=== PATIENT | female | born 1960 | race Caucasian/White ===

== ENCOUNTER 2021-04-05 14:08 | Outpatient (CLI) | payer OTHER, SELFPAY ==
[2021-04-05 14:55] LABS: Basophils Absolute Auto 0.1 K/mm3 (0.0-0.1); Basophils Percent Auto 0.8 % (0.2-1.2); Eosinophils Absolute Auto 0.3 K/mm3 (0-0.3); Eosinophils Percent Auto 3.4 % (0-4.4); Hematocrit 45.6 % (37.0-47.0); Hemoglobin 14.5 g/dL (12.0-15.0); Immature Granulocyte Absolute 0.04 K/mm3 (0.00-0.031); Immature Granulocyte Percent A 0.4 % (0-0.5); Lymphocytes Absolute Auto 2.46 K/mm3 (0.9-3.2); Mean Corpuscular HGB Conc 31.8 g/dl (32-36); Mean Corpuscular Hemoglobin 29.6 pg (26-34); Mean Corpuscular Volume 93.1 fl (80-100); Mean Platelet Volume 10.4 fl (7.4-10.4); Monocytes Absolute Auto 0.7 K/mm3 (0.1-0.6); Monocytes Percent Auto 7.1 % (2.6-8.5); Neutrophils Absolute Auto 5.6 K/mm3 (1.3-6.7); Neutrophils Percent Auto 61.3 % (45.5-73.1); Platelet Count Result 295 k/mm3 (150-375); Red Cell Distribution Width 13.9 % (11.5-14.5); White Blood Count 9.1 K/mm3 (4.5-10.0)
[2021-04-05 15:13] LABS: NT Pro B Type Natriuretic Pept 134 pg/mL (5-100)
[2021-04-07 11:26] LABS: Alpha-1-Antitrypsin, QN 173 mg/dL (83-199)
== END 2021-04-05 14:09 | disposition home or self-care (01) ==
PROVIDERS: PCP Physician Assistant; Visit Provider Nurse Practitioner
DX: J45.909 Unspecified asthma, uncomplicated (principal); R05 Cough
CPT/HCPCS: 36415; 82103; 82104; 82785; 83880; 85025; 86003

== ENCOUNTER 2021-08-12 13:21 | Outpatient (CLI) | payer OTHER, SELFPAY ==
--- NOTE | 2021-08-13 09:35 | P.PCNPFT_ITS ---
PFT Procedure Performed PFT Procedure Performed Spirometry with Pre/Post Bronchodilator Plethysmography (Lung Vol) Diffusing Cap (DLCO) Flow Vol Loop PFT Interpretation Lung volumes were measured with the body plethysmography method. The elevated RV and FRC are indicative of air trapping. Spirometry showed diminished exp iratory flow rates and a diminished FEV1 to FVC ratio 48%, consistent with obstructive airway disease. Following administration of a bronchodilator there was significant increase in expiratory flow rates. Lung diffusion capacity is borderline normal at 76% predicted. The flow volume loop is consistent with obstructive airway disease. Impression: Moderately severe obstructive airway disease with evidence of air trapping and significant response to bronchodilators on this testing. Borderline normal lung diffusion capacity.
--- NOTE | 2021-08-13 09:39 | WPDSIXMINUTE ---
Six Minute Walk Procedure Procedure Performed Pulmonary Stress Test (6 min walk) Six Minute Walk This 6 minute walk test was carried out with the patient breathing ambient air. The pre walk oxygen saturation was 94% and the perceived pre walk dyspnea 2 on the Evin scale. Patient used wheeled walker but was unable to finish walk and stopped at 4 minutes. She was only able to walk 45 m. During the walk the perceived dyspnea was 6 on the Evin scale. During this short walk, the O2 saturation remained over 95%. Impression: Incomplete 6 minute walk test limited by inability to walk and also by dyspnea. No significant oxyhemoglobin desaturation during this limited test.
== END 2021-08-12 13:22 | disposition home or self-care (01) ==
LOC: ANHPFT 13:23
PROVIDERS: PCP Physician Assistant; Visit Provider Nurse Practitioner
DX: J44.9 Chronic obstructive pulmonary disease, unspecified (principal); R06.00 Dyspnea, unspecified
CPT/HCPCS: 94060; 94618; 94726; 94729

== ENCOUNTER 2022-10-28 09:33 | Outpatient (CLI) | payer OTHER, SELFPAY ==
--- NOTE | ~2022-10-28 | MMUS_ITS ---
EXAMINATION: MM diagnostic antonio BI w vasquez, US breast LT limited HISTORY: Mass in the lower outer quadrant of the right breast TECHNIQUE: Craniocaudal, mediolateral, and mediolateral oblique 3-D tomosynthesis images of the yanci ts were performed and synthetic 2-D images were generated. CAD analysis was submitted and interpreted . High resolution limited left breast ultrasound was performed. COMPARISON: No prior mammogram is currently available for comparison at this institution BREAST PARENCHYMAL COMPOSITION: There are scattered areas of fibroglandular density. FINDINGS: MAMMOGRAPHIC FINDINGS: No mammographic correlate is identified for the mass questioned in the right breast. There is a 10 mm x 4 mm oval, circumscribed, equal density mass in the middle third of the upper outer quadrant of th e left breast at the 2:00 location 10 cm from the nipple. No suspicious calcification or architectura l distortion are identified. ULTRASOUND: There is a 5 mm x 4 mm oval, circumscribed, parallel, hypoechoic mass with posterior acoustic enhance ment and no internal vascularity at the 2:00 location 15 cm from the nipple in the left breast. IMPRESSION: 1. Probably benign left breast mass. 2. Recommend 6 month follow-up left diagnostic mammogram and ultrasound. BI-RADS category 3, probably benign findings. Reviewed, dictated and finalized at location A. NSIONAL INSPECTOR IMPRESSION: 1. Probably benign left breast mass. 2. Recommend 6 month follow-up left diagnostic mammogram and ultrasound. BI-RADS category 3, probably benign findings.
== END 2022-10-28 09:34 | disposition home or self-care (01) ==
LOC: CHSIMG 09:35
PROVIDERS: PCP Physician Assistant; Visit Provider Physician Assistant
DX: N63.13 Unspecified lump in the right breast, lower outer quadrant (principal)
CPT/HCPCS: 76642; 77062; 77066; G0279

== ENCOUNTER 2023-04-17 08:46 | Outpatient (CLI) | payer OTHER, SELFPAY ==
--- NOTE | ~2023-04-17 | MMUS_ITS ---
EXAMINATION: MM diagnostic antonio LT w vasquez, US breast LT limited HISTORY: Six-month follow-up of probable benign left breast 2:00 lesion 13 cm from nipple, reported o n 10/28/2022 diagnostic mammogram and limited left breast ultrasound examination TECHNIQUE: ML, MLO and CC 3-D tomosynthesis images of the left breast were performed and synthetic 2- D images were generated. CAD analysis was submitted and interpreted. High resolution upper outer quad rant left breast ultrasound was performed. COMPARISON: 10/28/2022 diagnostic left mammogram and limited left breast ultrasound FINDINGS: MAMMOGRAPHIC FINDINGS: 2 contiguous circumscribed oval approximately 2.5 x 3.6 mm and 2.6 x 5.2 mm masses are noted in the u pper outer left breast. A small oval benign-appearing calcification is noted in the 2.5 x 3.6 mm mass . The circumscribed margins and a benign-appearing calcification suggest that these are benign proces ses. There is a nearby more medially situated approximately 3.6 x 9.5 mm circumscribed opacity. No suspicious mass or architectural distortion, malignant calcification, skin thickening or retractio n is noted otherwise. ULTRASOUND: 2:00 12 cm from nipple: There are 2 contiguous hypoechoic solid lesions, measuring 4.2 x 4.9 mm and 3 .5 x 4.6 mm . There is some shadowing associated with each of these lesions, which is suspicious. Ultrasound-guided biopsy therefore is recommended. IMPRESSION: 1. 2 contiguous approximately 4.9 and 4.6 mm sonographically shadowing masses at 2:00 12 cm 2. Ultrasound-guided biopsy of the 2 lesions at 2:00 12 cm from the nipple is recommended BI-RADS category 4, suspicious findings. Dr. Moore telephoned the report and ultrasound-guided biopsy recommendation for the 2 lesions at 2:00 12 cm from the nipple on 04/17/2023 at 1015 hours to Stephy Reviewed, dictated and finalized at location A. IMPRESSION: 1. 2 contiguous approximately 4.9 and 4.6 mm sonographically shadowing masses a t 2:00 12 cm 2. Ultrasound-guided biopsy of the 2 lesions at 2:00 12 cm from the nipple is r ecommended BI-RADS category [address], [address] Moore telephoned the report and ultrasound-guided biopsy recommendation for the 2 lesions at 2:00 12 cm from the nipple on 04/17/2023 at 1015 hours to Stephy
== END 2023-04-17 08:47 | disposition home or self-care (01) ==
LOC: CHSIMG 08:50
PROVIDERS: PCP Physician Assistant; Visit Provider Physician Assistant
DX: N63.21 Unspecified lump in the left breast, upper outer quadrant (principal); R92.8 Other abnormal and inconclusive findings on diagnostic imaging of breast
CPT/HCPCS: 76642; 77061; 77065; G0279

== ENCOUNTER 2023-05-02 07:35 | Outpatient (CLI) | payer OTHER, SELFPAY ==
--- NOTE | ~2023-05-02 | MMUS_ITS ---
EXAMINATION: US breast biopsy LT w image, MM post biopsy diagnostic LT DATE: 05/02/2023 09:10 (accession [id number]), 05/02/2023 09:03 (accession [id number]) INDICATION: Indeterminate mass at the 2:00 location in the left breast. Ultrasound-guided core biopsy is requested to evaluate for malignancy. TECHNIQUE AND FINDINGS: The risks and potential benefits of the procedure were discussed with the patient including bleeding and infection. A time out was performed. The skin of the left breast was prepared and draped in usual sterile fashion. 1% lidocaine was used for superficial anesthesia. 1% lidocaine with epinephrine was used for deep anesthesia. A vacuum-assisted biopsy needle was advanced through to the outer edge of the region of interest from a lateral approach utilizing sonographic guidance. A total of three tissue core samples were obtaine d through the lesion. A tissue marker clip was then placed at the biopsy site. Hemostasis was achieve d. A sterile bandage was applied. The patient tolerated procedure well and there was no evidence of immediate complication. The patient was given verbal instructions to return to the Emergency Department in the event of severe breast pa in or rapid breast enlargement. A two view left breast mammogram was obtained to document tissue francisco javier er clip placement. IMPRESSION: 1. Successful ultrasound-guided vacuum-assisted biopsy of left breast mass with tissue marker placeme nt. Reviewed, dictated and finalized at location D. IMPRESSION: 1. Successful ultrasound-guided vacuum-assisted biopsy of left breast mass with tissue marker placement.
== END 2023-05-02 07:36 | disposition home or self-care (01) ==
PROVIDERS: PCP Physician Assistant; Visit Provider Physician Assistant
DX: N63.21 Unspecified lump in the left breast, upper outer quadrant (principal)
CPT/HCPCS: 19083; 77065; 88305; A4648

== ENCOUNTER 2023-06-13 10:11 | Outpatient (CLI) | payer OTHER, SELFPAY ==
--- NOTE | ~2023-06-13 | US_ITS ---
US breast LT limited DATE: 06/13/2023 10:39 INDICATION: Left breast lump at 11:00 10 cm from nipple TECHNIQUE: Targeted ultrasound and color flow imaging of the left breast at 11:00 10 cm from nipple COMPARISON: 04/17/2020 diagnostic left mammogram and limited left breast ultrasound FINDINGS: Corresponding to the area of palpable lump is a parallel circumscribed sonolucency measurin g 2 x 3.4 x 3.7 mm, without internal vascularity or posterior shadowing, consistent with simple cyst. IMPRESSION: BI-RADS Category 2: Benign finding Recommendation: Routine mammographic screening Reviewed, dictated and finalized at Location A. Reviewed, dictated and finalized at location A.
== END 2023-06-13 10:12 | disposition home or self-care (01) ==
PROVIDERS: PCP Physician Assistant; Visit Provider Physician Assistant
DX: N63.22 Unspecified lump in the left breast, upper inner quadrant (principal)
CPT/HCPCS: 76642

== ENCOUNTER 2024-07-26 21:55 | Emergency (ER) | payer SELFPAY ==
[2024-07-26 21:55] VITALS: BP 123/86; PULSE 75; RESP 20; TEMP 36.8; O2SAT 94
--- NOTE | 2024-07-26 22:01 | ED.ANIMALBIT ---
HPI - Animal Bite General Chief Complaint: Wound/Laceration Stated Complaint: Skin Tear to Right Leg Time Seen by Provider: 07/26/24 22:01 Source: patient Mode of arrival: ambulatory Limitations: no limitations History of Present Illness HPI narrative: PATIENT 63 YEARS OLD WHITE FEMALE PRESENTS WITH LACERATION AT THE FRONT OF LEFT LOWER LEG BY A DOG. PATIENT WAS SITTING, CARRYING THE DOG ON HER LAB WHO GOT OF HER LAB SUDDENLY AND SCRATCH THE FRONT OF LEFT LOWER LEG. PATIENT DENIES OTHER INJURIES. UNKNOWN LAST TETANUS SHOT. Review of Systems Review of Systems: All systems reviewed & are unremarkable except as noted in HPI and below Exam Narrative: GENERAL APPEARANCE: WELL-DEVELOPED, WELL-NOURISHED SKIN: NORMAL COLOR LEFT LOWER LEG EXAMINATION SHOWED 5 CM SKIN AVULSION. HEAD: NORMOCEPHALIC, NONTRAUMATIC CHEST AND RESPIRATORY: AIRWAY PATENT, NO RESPIRATORY DISTRESS, NO ACCESSORY MUSCLE USE HEART: REGULAR RATE/RHYTHM VASCULAR: NORMAL PERIPHERAL PULSES, NORMAL CAPILLARY REFILL. MUSCULOSKELETAL: NORMAL RANGE OF MOTION, NONTENDER BACK NEUROLOGIC: ALERT AND ORIENTED ?3, PAYROLL REPRESENTATIVE IS NORMAL TESTED, NO GROSS MOTOR DEFICIT MDM - Animal Bite MDM Narrative Medical decision making narrative: LEFT LOWER LEG LACERATION SECONDARY TO DOG SCRATCH MANAGED BY THE NURSEMITCHELL Critical Care Time Critical Care Time Critical Care Time: No Discharge Plan Discharge Clinical Impression: Laceration of left leg Patient Disposition: Home, Self-Care Condition: Stable Instructions: Antibiotic Form, Laceration (ED) Additional Instructions: RETURN IF SYMPTOMS ARE WORSENING , CALL YOUR FAMILY PHYSICIAN FOR APPOINTMENT, TAKE TYLENOL NEEDED FOR ACHES AND PAIN, CONTINUE HOME MEDICATIONS., KEEP LEG ELEVATED Prescriptions: New cephalexin 500 mg capsule 500 mg PO Q6H 7 Days Qty: 28 0RF Follow-up/Referrals: Veronica,JOSHUA Grace [Primary Care Provider] -
[2024-07-26] MEDS: TETANUS,DIPHTHERIA,AC PERTUSSIS ADULT 0.5 ML (ADACEL) IM (22:41)
== END 2024-07-26 22:48 | disposition home or self-care (01) ==
LOC: CHSED 22:32
PROVIDERS: Emergency Provider Emergency Medicine; PCP Physician Assistant
DX: S81.811A Laceration without foreign body, right lower leg, initial encounter (principal); Z23 Encounter for immunization; W45.8XXA Other foreign body or object entering through skin, initial encounter
CPT/HCPCS: 90715; 96372; 99283

== ENCOUNTER 2024-10-19 11:51 | Observation (INO) | payer SELFPAY ==
[2024-10-19] VITALS (25 sets, daily range): BP systolic 144–186; BP diastolic 67–106; PULSE 80–102; RESP 19–32; TEMP 36–36.6; O2SAT 88–100; BMI 37.0
--- NOTE | ~2024-10-19 | XR_ITS ---
XR chest 1V portable DATE: 10/19/2024 12:29 INDICATION: Shortness of breath for 3 weeks TECHNIQUE: Portable upright AP chest on 10/19/2024 at 1225 hours COMPARISON: None FINDINGS: Normal heart size. There is minimal aortic unfolding. No hilar or mediastinal enlargement. No pulmonary infiltrate or consolidation, pleural effusion or pulmonary vascular congestion or pneumo thorax. Osteopenia. Prominent osteoarthritic change of the right glenohumeral joint. Degenerative spurring an d minimal dextroscoliosis of the thoracic spine. IMPRESSION: No active cardiopulmonary disease Reviewed, dictated and finalized at location A. RUMENT TESTER
--- NOTE | 2024-10-19 12:02 | ECG_ITS ---
Test Date: 2024-10-19 12:16:23 Measurements Intervals Gobles Rate: 86 P: 58 PA: 105 QRS: 10 QRSD: 139 T: 120 QT: 400 QTc: 481 Interpretive Statements SINUS RHYTHM WITH SHORT PA INTERVAL LEFT BUNDLE BRANCH BLOCK [120+ ms QRS DURATION, 80+ ms Q/S IN V1/V2, 85+ ms R IN I/aVL/V5/V6] ABNORMAL ECG No previous ECG available for comparison Electronically Signed On 10-19-2024 17:44:15 BAKER TEST by Rob Ornelas M.D.
[2024-10-19] MEDS: IPRATROPIUM 0.5 MG/ALBUTEROL SULFATE 2.5 MG AMPUL.NEB 3 ML INHALATION ×3 (12:13→23:51)
[2024-10-19] MEDS: methylPREDNISolone SOD SUCC 125 MG VIAL IV PUSH (12:13)
[2024-10-19 12:27] LABS: Basophils Absolute Auto 0.08 K/mm3 (0.00-0.10); Basophils Percent Auto 0.8 % (0.0-1.0); Eosinophils Absolute Auto 0.86 K/mm3 (0.02-0.50); Eosinophils Percent Auto 8.2 % (1.0-6.0); Hematocrit 43.7 % (35.0-49.0); Hemoglobin 13.5 g/dL (12.0-15.0); Immature Granulocyte Absolute 0.04 K/mm3 (0.00-0.00); Immature Granulocyte Percent A 0.4 % (0.0-0.0); Lymphocytes Absolute Auto 2.03 K/mm3 (1.10-4.50); Lymphocytes Percent Auto 19.4 % (18.0-42.0); Mean Corpuscular HGB Conc 30.9 g/dL (32-36); Mean Corpuscular Hemoglobin 28.5 pg (27.0-31.0); Mean Corpuscular Volume 92.4 fL (78.0-102.0); Mean Platelet Volume 9.9 fl (9.2-11.8); Monocytes Absolute Auto 0.55 K/mm3 (0.10-0.90); Monocytes Percent Auto 5.3 % (2.0-11.0); Neutrophils Percent Auto 65.9 % (50.0-70.0); Platelet Count Result 279 K/mm3 (150-420); Red Blood Count 4.73 M/mm3 (4.20-5.40); White Blood Count 10.5 K/mm3 (4.8-10.8)
[2024-10-19 12:39] LABS: INR 0.9; Partial Thromboplastin Time 26.9 Sec (23.9-30.70); Prothrombin Time 10.5 Seconds (9.50-12.1)
[2024-10-19] MEDS: MAGNESIUM SULF 2 GM/WATER 50ML 2 GM/50 ML BAG IVPB (12:44)
[2024-10-19 12:45] LABS: Lactic Acid Reflex 1.4 mmol/L (0.4-2.0)
[2024-10-19] MEDS: LEVALBUTEROL NEB 1.25 MG/3 ML 2.5 MG INHALATION (12:45)
[2024-10-19 12:48] LABS: Troponin I 14.3 ng/L (0.00-60.4)
[2024-10-19 12:51] LABS: Alanine Aminotransferase 25 U/L (14-59); Albumin Level 3.7 g/dL (3.4-5.0); Alkaline Phosphatase 69 U/L (46-116); Anion Gap 10 mmol/L (4-12); Aspartate Amino Transferase 14 U/L (15-37); Bilirubin,Total 0.4 mg/dL (0.00-1.00); Blood Urea Nitrogen 12 mg/dL (7-18); Calcium 9.6 mg/dL (8.5-10.1); Carbon Dioxide 28 mmol/L (21-32); Chloride 109 mmol/L (98-108); Estimated CRCL calculation 89 ml/min; Estimated Glomerular Filt Rate > 60; Glucose 112 mg/dL (70-99); Magnesium 1.9 mg/dL (1.8-2.4); NT Pro B Type Natriuretic Pept 284 pg/mL (0-125); Osmolality Calculated 304 mOsm/kg (285-295); Potassium 3.6 mmol/L (3.5-5.1); Sodium 147 mmol/L (136-145); Total Protein 6.8 g/dL (6.4-8.2)
[2024-10-19 13:03] LABS: SARS-CoV-2 RNA PCR Negative (Negative)
[2024-10-19 13:04] LABS: Influenza A QL RT-PCR Negative (Negative); Influenza B QL RT-PCR Negative (Negative); RSV RNA, RT-PCR Negative (Negative)
--- NOTE | 2024-10-19 13:14 | ED_ITS ---
HPI - SOB/Dyspnea General Chief Complaint: Shortness of Breath/Dyspnea Stated Complaint: cough Source: patient and family Mode of arrival: ambulatory Limitations: no limitations History of Present Illness MD elicited complaint: shortness of breath and cough Pertinent past history: COPD Onset (ago): week(s) Context: recent illness Severity: moderate Known history of: COPD Related Data Home Medications ?Medication ?Instructions ?Recorded ?Confirmed ?Last Taken ?Type albuterol sulfate 2.5 mg/3 mL mg 10/19/24 Unknown History (0.083 %) solution for nebulization albuterol sulfate 90 mcg/actuation inhalation 10/19/24 Unknown History aerosol inhaler benzonatate 200 mg capsule mg PO 10/19/24 Unknown History escitalopram oxalate 10 mg tablet mg 10/19/24 Unknown History losartan 50 mg tablet mg 10/19/24 Unknown History metformin 500 mg tablet,extended mg PO 10/19/24 Unknown History release 24 hr Allergies Allergy/AdvReac Type Severity Reaction Status Date / Time No Known Allergies Allergy Verified 10/19/24 12:10 Review of Systems 2 Review of Systems: All systems reviewed & are unremarkable except as noted in HPI and below PMFSH Past Medical History Medical History COPD (chronic obstructive pulmonary disease) Exam 2 Const: General: no acute distress Nutritional Appearance: obese O rientation/consciousness: patient oriented x3 HENMT: Head: normal to inspection Eyes: Conjunctivae: conjunctivae normal Chest: Chest palpation & inspection: normal inspection of the chest Resp: Effort & Inspection: normal respiratory effort Auscultation: wheezes Cardio: Rate: regular rate Rhythm: regular rhythm GI: GI Palp: Yes Soft to palpation Auscultation: normal bowel sounds Urinary Catheter: Urinary Catheter: patent and draining Back/Spine/Pelvis: Back: no CVA tenderness Skin: General skin exam: normal color Rashes: no rashes Wounds: no wounds Neuro: General: patient oriented x3, moves all extremities and no meningeal signs Extrem: General: normal to inspection Course Course Emergency Course: EKG performed and reviewed shows sinus rhythm with a rate of 86 patient denies chest pain, has some audible wheezing received DuoNeb Xopenex and albuterol with magnesium and 125 IV Solu-Medrol. Patient is currently on room air and O2 sats are 98%. White count is 10.6 with negative troponin BNP of 286. Vital Signs Vital signs: Vital Signs Temperature 36.6 C 10/19/24 11:51 Pulse Rate 98 10/19/24 11:51 Respiratory Rate 20 10/19/24 11:51 Blood Pressure 169/106 H 10/19/24 11:51 Pulse Oximetry 93 10/19/24 11:51 Oxygen Delivery Room Air 10/19/24 11:51 Temperature 36.6 C 10/19/24 11:51 Pulse Rate 94 10/19/24 13:07 Respiratory Rate 22 H 10/19/24 13:07 Blood Pressure 186/95 H 10/19/24 12:02 Pulse Oximetry 98 10/19/24 13:07 Oxygen Delivery Room Air 10/19/24 12:02 MDM - SOB/Dyspnea Lab Data 10/19/24 12:23 10/19/24 12:23 Labs: Lab Results 10/19/24 Range/Units 12:23 WBC 10.5 (4.8-10.8) K/mm3 RBC 4.73 (4.20-5.40) M/mm3 Hgb 13.5 (12.0-15.0) g/dL Hct 43.7 (35.0-49.0) % MCV 92.4 (78.0-102.0) fL MCH 28.5 (27.0-31.0) pg MCHC 30.9 L (32-36) g/dL RDW 14.0 (11.6-14.4) % Plt Count 279 (150-420) K/mm3 MPV 9.9 (9.2-11.8) fl Immature Gran % (Auto) 0.4 H (0.0-0.0) % Neut % (Auto) 65.9 (50.0-70.0) % Lymph % (Auto) 19.4 (18.0-42.0) % [place] % (Auto) 5.3 (2.0-11.0) % Eos % (Auto) 8.2 H (1.0-6.0) % Baso % (Auto) 0.8 (0.0-1.0) % Lymph # (Auto) 2.03 (1.10-4.50) K/mm3 [place] # (Auto) 0.55 (0.10-0.90) K/mm3 Eos # (Auto) 0.86 H (0.02-0.50) K/mm3 Baso # (Auto) 0.08 (0.00-0.10) K/mm3 Abs Immat Gran (auto) 0.04 H (0.00-0.00) K/mm3 Absolute Neuts (auto) 6.90 (1.70-7.20) K/mm3 Absolute Nucleated RBC 0.00 (0.00-0.00) K/mm3 Nucleated RBC % 0.0 (0-0.0) % PT 10.5 (9.50-12.1) Seconds INR 0.9 APTT 26.9 (23.9-30.70) Sec Sodium 147 H (136-145) mmol/L Potassium 3.6 (3.5-5.1) mmol/L Chloride 109 H (98-108) mmol/L Carbon Dioxide 28 (21-32) mmol/L Anion Gap 10 (4-12) mmol/L BUN 12 (7-18) mg/dL Creatinine 0.68 (0.55-1.02) mg/dL Estim Creat Clear Calc 89 ml/min Estimated GFR > 60 (59 - ) Glucose 112 H (70-99) mg/dL Calculated Osmolality 304 H (285-295) mOsm/kg Lactic Acid 1.4 (0.4-2.0) mmol/L Calcium 9.6 (8.5-10.1) mg/dL Magnesium 1.9 (1.8-2.4) mg/dL Total Bilirubin 0.4 (0.00-1.00) mg/dL AST 14 L (15-37) U/L ALT 25 (14-59) U/L Alkaline Phosphatase 69 (46-116) U/L Troponin I 14.3 (0.00-60.4) ng/L NT-Pro-B Natriuret Pep 284 H (0-125) pg/mL Total Protein 6.8 (6.4-8.2) g/dL Albumin 3.7 (3.4-5.0) g/dL Influenza A (RT-PCR) Negative (Negative) Influenza B (RT-PCR) Negative (Negative) RSV (RT-PCR) Negative (Negative) SARS-CoV-2 RNA (RT-PCR) Negative (Negative) Discharge Plan Discharge Patient Language: Tajik Prescriptions: No Action losartan 50 mg tablet albuterol sulfate 2.5 mg /3 mL (0.083 %) solution for nebulization benzonatate 200 mg capsule PO albuterol sulfate 90 mcg/actuation HFA aerosol inhaler INHALATION metformin 500 mg tablet extended release 24 hr PO escitalopram oxalate 10 mg tablet Follow-up/Referrals: UNKNOWN,DOCTOR [Primary Care Provider] -
[2024-10-19] MEDS: ALBUTEROL SULFATE NEB 1.25 MG/3 ML INH INHALATION (13:21)
--- NOTE | 2024-10-19 14:05 | ADMGEN ---
This patient, Noelle Fields, was admitted to 2nd Floor Room 203-2. Patient/family oriented to hospital policies and general routines including ID bracelet, bed and alarms, visiting hours, pain management, procedures, bathroom and other care routines, personal items, smoking policy, room service/diet, and visiting hours. Information on how to activate the Rapid Response Team has been discussed. Patient/Family are encouraged to report perceived risks to care and to ask questions if they do not understand what they are told or what they should do.
--- NOTE | 2024-10-19 15:05 | PC.NURSE ---
Patient struggling to calm breathing down even with pursed lipped breathing. 02@2l per nc applied, 02 up to 91-92% from 86-88%. Patient reports she feels better with 02 on, patient appears much calmer sitting up at side of bed.
[2024-10-19] MEDS: methylPREDNISolone SOD SUCC 40 MG VIAL IV PUSH (17:44)
[2024-10-19] MEDS: AZITHROMYCIN 250 MG TABLET 500 MG PO (17:44)
[2024-10-19] MEDS: LOSARTAN POTASSIUM 50 MG TABLET PO (17:44)
[2024-10-19 17:55] LABS: Glucose Point of Care 194 mg/dl (65-105)
[2024-10-19] MEDS: BENZONATATE 100 MG CAPSULE 200 MG PO (18:56)
[2024-10-19] MEDS: ACETAMINOPHEN 325 MG TABLET 650 MG PO ×2 (18:58→23:57)
[2024-10-19 21:49] LABS: Glucose Point of Care 114 mg/dl (65-105)
[2024-10-20] VITALS: BP 164/88; PULSE 88; RESP 22; TEMP 36.3; O2SAT 96
[2024-10-20 05:30] VITALS: O2SAT 94
[2024-10-20 05:58] VITALS: PULSE 84; RESP 18; O2SAT 95
[2024-10-20] MEDS: IPRATROPIUM 0.5 MG/ALBUTEROL SULFATE 2.5 MG AMPUL.NEB 3 ML INHALATION ×3 (05:59→17:59)
[2024-10-20 06:10] VITALS: PULSE 84; RESP 20; O2SAT 97
[2024-10-20 06:33] LABS: Basophils Absolute Auto 0.04 K/mm3 (0.00-0.10); Basophils Percent Auto 0.3 % (0.0-1.0); Eosinophils Absolute Auto 0.01 K/mm3 (0.02-0.50); Eosinophils Percent Auto 0.1 % (1.0-6.0); Hematocrit 44.9 % (35.0-49.0); Hemoglobin 14.1 g/dL (12.0-15.0); Immature Granulocyte Absolute 0.08 K/mm3 (0.00-0.00); Immature Granulocyte Percent A 0.7 % (0.0-0.0); Lymphocytes Absolute Auto 1.22 K/mm3 (1.10-4.50); Lymphocytes Percent Auto 10.7 % (18.0-42.0); Mean Corpuscular HGB Conc 31.4 g/dL (32-36); Mean Corpuscular Hemoglobin 28.5 pg (27.0-31.0); Mean Corpuscular Volume 90.9 fL (78.0-102.0); Mean Platelet Volume 10.4 fl (9.2-11.8); Monocytes Absolute Auto 0.36 K/mm3 (0.10-0.90); Monocytes Percent Auto 3.1 % (2.0-11.0); Neutrophils Absolute Auto 9.74 K/mm3 (1.70-7.20); Neutrophils Percent Auto 85.1 % (50.0-70.0); Platelet Count Result 304 K/mm3 (150-420); Red Blood Count 4.94 M/mm3 (4.20-5.40); Red Cell Distribution Width 13.7 % (11.6-14.4); White Blood Count 11.5 K/mm3 (4.8-10.8)
[2024-10-20 06:41] LABS: Alanine Aminotransferase 22 U/L (14-59); Albumin Level 3.7 g/dL (3.4-5.0); Alkaline Phosphatase 80 U/L (46-116); Anion Gap 10 mmol/L (4-12); Aspartate Amino Transferase 10 U/L (15-37); Bilirubin,Total 0.5 mg/dL (0.00-1.00); Blood Urea Nitrogen 11 mg/dL (7-18); Calcium 9.2 mg/dL (8.5-10.1); Carbon Dioxide 29 mmol/L (21-32); Chloride 106 mmol/L (98-108); Estimated CRCL calculation 99 ml/min; Estimated Glomerular Filt Rate > 60; Glucose 130 mg/dL (70-99); Osmolality Calculated 301 mOsm/kg (285-295); Potassium 4.3 mmol/L (3.5-5.1); Sodium 145 mmol/L (136-145); Total Protein 7.1 g/dL (6.4-8.2)
[2024-10-20 08:00] VITALS: BP 144/90; PULSE 86; RESP 14; TEMP 36.6; O2SAT 94; O2SAT 95
[2024-10-20 08:01] LABS: Glucose Point of Care 119 mg/dl (65-105)
[2024-10-20] MEDS: ACETAMINOPHEN 325 MG TABLET 650 MG PO ×2 (09:39→20:54)
[2024-10-20] MEDS: methylPREDNISolone SOD SUCC 40 MG VIAL IV PUSH ×2 (09:39→13:23)
[2024-10-20] MEDS: BENZONATATE 100 MG CAPSULE 200 MG PO ×3 (09:40→17:58)
[2024-10-20] MEDS: ENOXAPARIN 40 MG/0.4 ML SYRINGE SUB-Q (09:40)
[2024-10-20] MEDS: ONDANSETRON INJ 4 MG/2 ML VIAL IV PUSH (11:20)
[2024-10-20 12:03] LABS: Glucose Point of Care 109 mg/dl (65-105)
[2024-10-20] MEDS: AZITHROMYCIN 250 MG TABLET 500 MG PO (12:14)
[2024-10-20] MEDS: LOSARTAN POTASSIUM 50 MG TABLET PO (12:14)
[2024-10-20 16:00] VITALS: BP 140/74; PULSE 85; RESP 18; TEMP 36.6; O2SAT 93
--- NOTE | 2024-10-20 16:38 | PM.IMPN ---
Subjective Date/time seen: 10/20/24 16:38 Interval history: This is a 63-year-old female with a significant past medical history of COPD, Hypertension, borderline DM, hx of DVT, current everyday smoker who presented to the hospital with shortness of breath/dyspnea. Patient states that she has been feeling more short of breath the past few days and presented for further evaluation. Patient is currently retired however uninsured at this time. She does have her inhalers and nebulizer at home with refills. She states that her O2 saturation is normally between 80-92% at home. She is more short of breath with activity than usual. She denies any fever, chills, nausea, vomiting, diarrhea, abdominal pain, chest pain, SOB. She does report productive cough. She states she was exposed to her daughter who has been recently ill. Patient states that workup in the hospital included chest x-ray which was negative for any acute cardiopulmonary disease. Initial labs showed a normal white blood cell count of 10.5, eosinophils 0.86, sodium 147, potassium 3.6, blood sugar 112-194, proBNP 284, troponin 14.3. Respiratory panel was negative for influenza a and B, RSV, COVID. Blood cultures were obtained and are pending. Review of Systems Review of Systems: All systems reviewed & are unremarkable except as noted in HPI and below Constitutional: Constitutional: Reports as per HPI and Reports no additional constitutional complaints Eyes: Eyes: Reports as per HPI and Reports no additional eye complaints ENT: Reports system reviewed and no additional complaints, except as documented and Reports as per HPI Cardiovascular: Cardiovascular: Reports as per HPI and Reports no additional cardiovascular complaints Respiratory: Respiratory: Reports as per HPI and Reports no additional respiratory complaints Gastrointestinal: Gastrointestinal: Reports as per HPI and Reports no additional gastrointestinal complaints Genitourinary: Genitourinary: Reports no additional female genitourinary complaints and Reports as per HPI Musculoskeletal: Musculoskeletal: Reports no additional musculoskeletal complaints and Reports as per HPI Integumentary/Breasts: Skin/Breast: Reports system reviewed and no additional complaints, except as docu and Reports as per HPI Neurologic: Reports system reviewed and no additional complaints, except as documented and Reports as per HPI Psychiatric: Psychiatric: Reports no additional psychiatric complaints and Reports as per HPI Exam Narrative: General: In no acute distress, well nourished Head: atraumatic, no encephalopathy Eyes: PERRLA, sclera clear ENT: moist mucous membranes, nasal passages clear Neck: supple, no JVD, no adenopathy, trachea midline Cardiac: Normal S1 and S2. RRR, No murmur, gallops or friction rubs, peripheral pulses intact. Respiratory: Lungs clear to auscultation with mild expiratory wheezing, no adventitious lung sounds, currently on 2L NC, reports SOB with exertion Gastrointestinal: soft, non-distended, non-tender, normoactive bowel sounds. : voiding without difficulty. Extremities: moves all extremities well, 1+ edema to BLE Skin: clean, dry, intact. No wounds or lesions. Neuro: Alert and oriented x4, cranial nerves intact, no neuro deficits. Psych: normal mood, normal affect, interactive Objective Data Vital Signs Vital Signs: Vital Signs - 24 hr 10/19/24 23:50 10/20/24 00:00 10/20/24 00:00 Temperature 97.4 F L Pulse Rate 80 88 88 Respiratory Rate 22 H 22 H 22 H Blood Pressure 164/88 H Pulse Oximetry 95 96 96 Oxygen Delivery Nasal Cannula Oxygen Flow Rate 2 2 2 10/20/24 05:58 10/20/24 06:10 10/20/24 08:00 Temperature 97.8 F Pulse Rate 84 84 86 Respiratory Rate 18 20 14 Blood Pressure 144/90 H Pulse Oximetry 95 97 94 Oxygen Delivery Nasal Cannula Oxygen Flow Rate 2 2 2.5 10/20/24 08:00 10/20/24 16:00 Temperature 98 F Pulse Rate 86 85 Respiratory Rate 14 18 Blood Pressure 140/74 Pulse Oximetry 95 93 Oxygen Delivery Nasal Cannula Nasal Cannula Oxygen Flow Rate 2.5 2 Intake/Output Intake/Output: Intake & Output 10/17/24 10/18/24 10/19/24 10/20/24 23:59 23:59 23:59 23:59 Intake Total 440 1065 Balance 440 1065 Meds/Results Medications: Active Medications Generic Name Dose Route Start Last Admin Trade Name Freq PRN Reason Stop Dose Admin Acetaminophen 650 mg 10/19/24 15:13 10/20/24 09:39 Acetaminophen 325 Mg Tablet PO 650 mg Q4H PRN Administration Mild Pain (1-3) or Fever Albuterol/Ipratropium 3 ml 10/19/24 18:30 10/20/24 13:23 Ipratropium 0.5 Mg/Albuterol Sulfate 2.5 Mg Ampul.Neb 3 Ml INHALATION 3 ml Q6HRT HOLDEN Administration Azithromycin 500 mg 10/19/24 15:20 10/20/24 12:14 Azithromycin 250 Mg Tablet PO 500 mg DAILY HOLDEN Administration Benzonatate 200 mg 10/19/24 18:40 10/20/24 13:23 Benzonatate 100 Mg Capsule PO 200 mg TID HOLDEN Administration Dextrose 12.5 gm 10/19/24 15:13 Dextrose 50% 25 Gm/50 Ml Syringe IV PUSH PRN PRN Hypoglycemia Protocol Enoxaparin Sodium 40 mg 10/20/24 09:00 10/20/24 09:40 Enoxaparin 40 Mg/0.4 Ml Syringe SUB-Q 40 mg DAILY HOLDEN Administration Glucagon 1 mg 10/19/24 15:13 Glucagon For Inj 1 Mg Vial IM PRN PRN Hypoglycemia Protocol Glucose 15 gm 10/19/24 15:13 Glucose Oral Gel 15 Gm Of Glucse In 37.5 Gm Tube PO PRN PRN Hypoglycemia Protocol Dextrose 1,000 mls @ 100 mls/hr 10/19/24 15:13 Dextrose 5% 1,000 Ml IVPB PRN PRN Hypoglycemia Protocol Insulin Human Lispro 4 - 8 units 10/19/24 17:00 10/20/24 12:14 Insulin Human Lispro (*Bkc) 1,000 Units/10 Ml Vial SUB-Q Not Given TIDWM HOLDEN Protocol Losartan Potassium 50 mg 10/19/24 15:20 10/20/24 12:14 Losartan Potassium 50 Mg Tablet PO 50 mg DAILY HOLDEN Administration Methylprednisolone Sodium Succinate 40 mg 10/19/24 17:00 10/20/24 13:23 Methylprednisolone Sod Succ 40 Mg Vial IV PUSH 40 mg TID HOLDEN Administration Ondansetron HCl 4 mg 10/19/24 15:13 10/20/24 11:20 Ondansetron Inj 4 Mg/2 Ml Vial IV PUSH 4 mg Q6H PRN Administration Nausea And Vomiting Radiology Results: ITS Impressions Chest X-Ray 10/19/24 12:56 IMPRESSION: No active cardiopulmonary disease Labs Labs: Laboratory Results - last 24 hr 10/19/24 10/19/24 10/20/24 17:53 21:44 05:47 WBC 11.5 H RBC 4.94 Hgb 14.1 Hct 44.9 MCV 90.9 MCH 28.5 MCHC 31.4 L RDW 13.7 Plt Count 304 MPV 10.4 Immature Gran % (Auto) 0.7 H Neut % (Auto) 85.1 H Lymph % (Auto) 10.7 L [place] % (Auto) 3.1 Eos % (Auto) 0.1 L Baso % (Auto) 0.3 Lymph # (Auto) 1.22 [place] # (Auto) 0.36 Eos # (Auto) 0.01 L Baso # (Auto) 0.04 Abs Immat Gran (auto) 0.08 H Absolute Neuts (auto) 9.74 H Absolute Nucleated RBC 0.00 Nucleated RBC % 0.0 Sodium 145 Potassium 4.3 Chloride 106 Carbon Dioxide 29 Anion Gap 10 BUN 11 Creatinine 0.60 Estim Creat Clear Calc 99 Estimated GFR > 60 Glucose 130 H POC Capillary Glucose 194 H 114 H Calculated Osmolality 301 H Calcium 9.2 Total Bilirubin 0.5 AST 10 L ALT 22 Alkaline Phosphatase 80 Total Protein 7.1 Albumin 3.7 10/20/24 10/20/24 07:54 11:58 WBC RBC Hgb Hct MCV MCH MCHC RDW Plt Count MPV Immature Gran % (Auto) Neut % (Auto) Lymph % (Auto) [place] % (Auto) Eos % (Auto) Baso % (Auto) Lymph # (Auto) [place] # (Auto) Eos # (Auto) Baso # (Auto) Abs Immat Gran (auto) Absolute Neuts (auto) Absolute Nucleated RBC Nucleated RBC % Sodium Potassium Chloride Carbon Dioxide Anion Gap BUN Creatinine Estim Creat Clear Calc Estimated GFR Glucose POC Capillary Glucose 119 H 109 H Calculated Osmolality Calcium Total Bilirubin AST ALT Alkaline Phosphatase Total Protein Albumin
[2024-10-20 17:07] LABS: Glucose Point of Care 241 mg/dl (65-105)
--- NOTE | 2024-10-20 17:35 | P.HP_ITS ---
H&P: HPI History of Present Illness Date/Time: 10/20/24 17:35 Chief Complaint: shortness a breath dyspnea Narrative: This is a 63-year-old female with a significant past medical history of COPD, Hypertension, borderline DM, hx of DVT, current everyday smoker who presented to the hospital with shortness of breath/dyspnea. Patient states that she has been feeling more short of breath the past few days and presented for further evaluation. Patient is currently retired however uninsured at this time. She does have her inhalers and nebulizer at home with refills. She states that her O2 saturation is normally between 80-92% at home. She is more short of breath with activity than usual. She denies any fever, chills, nausea, vomiting, diarrhea, abdominal pain, chest pain, SOB. She does report productive cough. She states she was exposed to her daughter who has been recently ill. Patient states that workup in the hospital included chest x-ray which was negative for any acute cardiopulmonary disease. Initial labs showed a normal white blood cell count of 10.5, eosinophils 0.86, sodium 147, potassium 3.6, blood sugar 112-194, proBNP 284, troponin 14.3. Respiratory panel was negative for influenza a and B, RSV, COVID. Blood cultures were obtained and are pending. Review of Systems Review of Systems: All systems reviewed & are unremarkable except as noted in HPI and below Constitutional: Constitutional: Reports as per HPI and Reports no additional constitutional complaints Eyes: Eyes: Reports as per HPI and Reports no additional eye complaints ENT: Reports system reviewed and no additional complaints, except as documented and Reports as per HPI Cardiovascular: Cardiovascular: Reports as per HPI and Reports no additional cardiovascular complaints Respiratory: Respiratory: Reports as per HPI and Reports no additional respiratory complaints Gastrointestinal: Gastrointestinal: Reports as per HPI and Reports no additional gastrointestinal complaints Genitourinary: Genitourinary: Reports no additional female genitourinary complaints and Reports as per HPI Musculoskeletal: Musculoskeletal: Reports no additional musculoskeletal complaints and Reports as per HPI Integumentary/Breasts: Skin/Breast: Reports system reviewed and no additional complaints, except as docu and Reports as per HPI Neurologic: Reports system reviewed and no additional complaints, except as documented and Reports as per HPI Psychiatric: Psychiatric: Reports no additional psychiatric complaints and Reports as per HPI [facility] Past Medical History Medical History (Updated 10/20/24 @ 17:40 by Lilibeth Shi APRN) Tobacco abuse Type 2 diabetes mellitus 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 She lives with her . she currently has no insurance and does not qualify for Medicaid. She is currently 63 years old. Smoking packs per day: 1 Smoking cigarettes per day: 20.0 Years smoked: 46 Smoking pack-years: 46.00 Smoking status: Current every day smoker Tobacco type: cigarettes Second hand tobacco smoke exposure: No Alcohol intake: never Substance use: never Substance use type: does not use Do You Feel Safe in your Home?: Yes Lack of Transportation: No Lack of Food: Never True Current Housing: I Have Housing Concerned About Future Housing: No Difficulty Paying Gas/Electric Bills: YES Difficulty Paying for Meds: YES Currently Unemployed: No Education: High School Diploma/GED Difficulty w/ Childcare or Family Care: No Spiritual care concerns: No Meds Home Medications and Allergies Home Medications ?Medication ?Instructions ?Recorded ?Confirmed ?Type albuterol sulfate 2.5 mg/3 mL 2.5 mg inhalation Q4-6H PRN 10/19/24 10/19/24 History (0.083 %) solution for nebulization shortness of breath or wheezing albuterol sulfate 90 mcg/actuation 2 inh inhalation Q6H PRN 10/19/24 10/19/24 History aerosol inhaler bronchospasm benzonatate 200 mg capsule 200 mg PO TID PRN cough 10/19/24 10/19/24 History escitalopram oxalate 10 mg tablet 10 mg PO DAILY 10/19/24 10/19/24 History losartan 50 mg tablet 50 mg PO DAILY 10/19/24 10/19/24 History metformin 500 mg tablet,extended 500 mg PO BID 10/19/24 10/19/24 History release 24 hr tiotropium bromide 2.5 2 inh inhalation DAILY 10/19/24 10/19/24 History mcg/actuation mist for inhalation (Spiriva Respimat) Allergies Allergy/AdvReac Type Severity Reaction Status Date / Time No Known Allergies Allergy Verified 10/19/24 12:10 Vital Signs Vital Signs - 24 hr 10/19/24 23:50 10/20/24 00:00 10/20/24 00:00 Temperature 97.4 F L Pulse Rate 80 88 88 Respiratory Rate 22 H 22 H 22 H Blood Pressure 164/88 H Pulse Oximetry 95 96 96 Oxygen Delivery Nasal Cannula Oxygen Flow Rate 2 2 2 10/20/24 05:58 10/20/24 06:10 10/20/24 08:00 Temperature 97.8 F Pulse Rate 84 84 86 Respiratory Rate 18 20 14 Blood Pressure 144/90 H Pulse Oximetry 95 97 94 Oxygen Delivery Nasal Cannula Oxygen Flow Rate 2 2 2.5 10/20/24 08:00 10/20/24 16:00 Temperature 98 F Pulse Rate 86 85 Respiratory Rate 14 18 Blood Pressure 140/74 Pulse Oximetry 95 93 Oxygen Delivery Nasal Cannula Nasal Cannula Oxygen Flow Rate 2.5 2 Exam Narrative: General: In no acute distress, well nourished Head: atraumatic, no encephalopathy Eyes: PERRLA, sclera clear ENT: moist mucous membranes, nasal passages clear Neck: supple, no JVD, no adenopathy, trachea midline Cardiac: Normal S1 and S2. RRR, No murmur, gallops or friction rubs, peripheral pulses intact. Respiratory: Lungs clear to auscultation with mild expiratory wheezing, no adventitious lung sounds, currently on 2L NC, reports SOB with exertion Gastrointestinal: soft, non-distended, non-tender, normoactive bowel sounds. : voiding without difficulty. Extremities: moves all extremities well, 1+ edema to BLE Skin: clean, dry, intact. No wounds or lesions. Neuro: Alert and oriented x4, cranial nerves intact, no neuro deficits. Psych: normal mood, normal affect, interactive H&P: Results Labs Labs: Short CBC 10/20/24 Range/Units 05:47 WBC 11.5 H (4.8-10.8) K/mm3 Hgb 14.1 (12.0-15.0) g/dL Hct 44.9 (35.0-49.0) % Plt Count 304 (150-420) K/mm3 BMP 10/20/24 05:47 Sodium 145 Potassium 4.3 Chloride 106 Carbon Dioxide 29 BUN 11 Creatinine 0.60 Glucose 130 H Calcium 9.2 Liver Function 10/20/24 Range/Units 05:47 Total Bilirubin 0.5 (0.00-1.00) mg/dL AST 10 L (15-37) U/L ALT 22 (14-59) U/L Alkaline Phosphatase 80 (46-116) U/L Albumin 3.7 (3.4-5.0) g/dL Imaging Chest x-ray: Radiologist's impression: XR chest 1V portable DATE: 10/19/2024 12:29 INDICATION: Shortness of breath for 3 weeks TECHNIQUE: Portable upright AP chest on 10/19/2024 at 1225 hours COMPARISON: None FINDINGS: Normal heart size. There is minimal aortic unfolding. No hilar or mediastinal enlargement. No pulmonary infiltrate or consolidation, pleural effusion or pulmonary vascular congestion or pneumothorax. Osteopenia. Prominent osteoarthritic change of the right glenohumeral joint. Degenerative spurring and minimal dextroscoliosis of the thoracic spine. IMPRESSION: No active cardiopulmonary disease Reviewed, dictated and finalized at location A. CT CONTROL AIDE Assessment and Plan Assessment and plan (1) Acute exacerbation of chronic obstructive pulmonary disease (COPD): Code(s): J44.1 - Chronic obstructive pulmonary disease with (acute) exacerbation Status: Acute Assessment and Plan: * chest x-ray was negative for any acute cardiopulmonary disease * history of smoking 1 pack per day, current everyday smoker * continue DuoNebs * continue Solu-Medrol * wean O2 for sat 88-92% * currently on 2 L nasal cannula * continue azithromycin * continue Tessalon Perles (2) Hypertension: Code(s): I10 - Essential (primary) hypertension Status: Acute Assessment and Plan: * blood pressures ranging * continue losartan 50 mg daily (3) Type 2 diabetes mellitus: Code(s): E11.9 - Type 2 diabetes mellitus without complications Status: Acute Assessment and Plan: * Blood sugars ranging [id number] * Hgb A1C ordered * Accu checks AC/HS * high-dose SSI ordered, however patient is refusing this * hypoglycemic protocol in place * Diabetic diet ordered * hold metformin (4) Tobacco abuse: Code(s): Z72.0 - Tobacco use Status: Acute Assessment and Plan: * smoking cessation * nicotine patch ordered Quality VTE Prophylaxis VTE prophylaxis: pharmacologic ordered Hospitalist MIPS Advance Care Plan I have confirmed that the patient's Advanced Care Plan is present, code status is documented, or surrogate decision maker is listed in patient medical record.: Yes Medication Reconciliation I have utilized all available resources to obtain, update and review the patients current medications (includes all prescriptions, OTC, herbals, cannabis, and nutritional supplements).: Yes
[2024-10-20 20:52] LABS: Glucose Point of Care 192 mg/dl (65-105)
[2024-10-21] VITALS (16 sets, daily range): BP systolic 130–164; BP diastolic 76–88; PULSE 73–105; RESP 14–20; TEMP 36.2–36.9; O2SAT 87–98
[2024-10-21] MEDS: IPRATROPIUM 0.5 MG/ALBUTEROL SULFATE 2.5 MG AMPUL.NEB 3 ML INHALATION ×5 (00:22→23:47)
[2024-10-21 05:25] LABS: Basophils Absolute Auto 0.03 K/mm3 (0.00-0.10); Basophils Percent Auto 0.2 % (0.0-1.0); Hematocrit 44.9 % (35.0-49.0); Immature Granulocyte Percent A 0.7 % (0.0-0.0); Lymphocytes Absolute Auto 2.26 K/mm3 (1.10-4.50); Lymphocytes Percent Auto 15.9 % (18.0-42.0); Mean Corpuscular HGB Conc 31.2 g/dL (32-36); Mean Corpuscular Hemoglobin 28.6 pg (27.0-31.0); Mean Corpuscular Volume 91.6 fL (78.0-102.0); Mean Platelet Volume 10.1 fl (9.2-11.8); Neutrophils Absolute Auto 10.84 K/mm3 (1.70-7.20); Neutrophils Percent Auto 76.2 % (50.0-70.0); Platelet Count Result 317 K/mm3 (150-420); Red Cell Distribution Width 13.9 % (11.6-14.4); White Blood Count 14.2 K/mm3 (4.8-10.8)
[2024-10-21 05:40] LABS: Alanine Aminotransferase 22 U/L (14-59); Albumin Level 3.6 g/dL (3.4-5.0); Alkaline Phosphatase 68 U/L (46-116); Anion Gap 9 mmol/L (4-12); Aspartate Amino Transferase < 10 U/L (15-37); Bilirubin,Total 0.4 mg/dL (0.00-1.00); Blood Urea Nitrogen 17 mg/dL (7-18); Calcium 9.4 mg/dL (8.5-10.1); Carbon Dioxide 30 mmol/L (21-32); Chloride 106 mmol/L (98-108); Estimated CRCL calculation 79 ml/min; Estimated Glomerular Filt Rate > 60; Glucose 121 mg/dL (70-99); Osmolality Calculated 302 mOsm/kg (285-295); Potassium 3.9 mmol/L (3.5-5.1); Sodium 145 mmol/L (136-145); Total Protein 6.9 g/dL (6.4-8.2)
[2024-10-21 08:13] LABS: Glucose Point of Care 113 mg/dl (65-105)
[2024-10-21] MEDS: methylPREDNISolone SOD SUCC 40 MG VIAL IV PUSH ×2 (09:40→18:11)
[2024-10-21] MEDS: AZITHROMYCIN 250 MG TABLET 500 MG PO (09:43)
[2024-10-21] MEDS: BENZONATATE 100 MG CAPSULE 200 MG PO ×2 (09:44→20:20)
[2024-10-21] MEDS: LOSARTAN POTASSIUM 50 MG TABLET PO (09:44)
[2024-10-21] MEDS: ENOXAPARIN 40 MG/0.4 ML SYRINGE SUB-Q (09:45)
[2024-10-21 12:05] LABS: Glucose Point of Care 122 mg/dl (65-105)
--- NOTE | 2024-10-21 13:41 | HOMEO2EVAL ---
Evaluation was performed at [facility] Home Oxygen Evaluation RC: Home Oxygen (O2) Evaluation Start: 10/21/24 11:49 Freq: ONCE Status: Active Protocol: RPE Activity Type Activity Date Activity User E-sign Co-sign Detail Recorded Client Recorded Date Recorded By Document 10/21/24 13:00 SJWally [id number] 10/21/24 13:40 SJB Document 10/21/24 13:01 SJB [id number] 10/21/24 13:40 SJB Document 10/21/24 13:06 SJB [id number] 10/21/24 13:40 SJB 10/21/24 10/21/24 10/21/24 13:00 13:01 13:06 Home O2 Evaluation [Oxygen] -Test Phase Resting Exercise Exercise -Oxygen Delivery Room Air Room Air Nasal Cannula -Oxygen Flow Rate (L/min) 2 [Pulse Oximetry] -Pulse Oximetry (90-100 %) 89 L 87 L 91 [Pulse Rate] -Pulse Rate (60-100 beats/min) 85 105 H [Evaluation] -Activity Tolerance Fair Poor -Rating of Perceived Dyspnea (PD) +2 Mild, Some +4 Severe Difficulty, Difficulty, Noticeable to Participant the Observer Cannot Continue -Rate of Perceived Exertion (PE) 13 Somewhat 16 Query Text:Click the Protocol Button Hard to View the RPE Scale [Exercise] -Ambulation Distance (feet) 12 140 -Ambulation Distance (meters) 3.65 42.66 [Comments] -Home Oxygen Evaluation Comments Will start walk Will start on 1 Pt walked a on r/a pushing lpm. After 2 total of 140 ft w/c. minutes patient , stopping x 3 's sp02 did not to rest and come up. Will catch her increase 02 to breath. PLB 2 lpm. After very much 1 minute, encouraged. patient's sp02 Exercise came up to 91%, tolerance is will continue fairly poor but walk. Sp02 remained at 91% and above on 2 lpm. HR up to 105. [Charges] -Evaluation Charges O2 Evaluation Charge
[2024-10-21 18:15] LABS: Glucose Point of Care 199 mg/dl (65-105)
--- NOTE | 2024-10-21 18:16 | PM.IMPN ---
Progress Note: A&P Assessment and Plan (1) Acute exacerbation of chronic obstructive pulmonary disease (COPD): Code(s): J44.1 - Chronic obstructive pulmonary disease with (acute) exacerbation Status: Acute Assessment and Plan: chest x-ray was negative for any acute cardiopulmonary disease history of smoking 1 pack per day, current everyday smoker continue DuoNebs continue Solu-Medrol wean O2 for sat 88-92% currently on 2 L nasal cannula continue azithromycin continue Tessalon Perles 10/21 Continue to decrease Solu-Medrol to 40 mg daily instead of b.i.d. continue 2 L nasal cannula as this is her new baseline oxygen requirement awaiting approval for home O2 continue DuoNebs continue azithromycin will add Tessalon Perles 200 mg at bedtime for her cough (2) Hypertension: Code(s): I10 - Essential (primary) hypertension Status: Acute Assessment and Plan: blood pressures ranging 144/79 to 169/106 continue losartan 50 mg daily 10/21 blood pressures ranging 140/74 to 161/88 regardless of her losartan 50 mg daily will increase losartan to 75 mg daily (3) Type 2 diabetes mellitus: Code(s): E11.9 - Type 2 diabetes mellitus without complications Status: Acute Assessment and Plan: Blood sugars ranging 114-241 Hgb A1C ordered Accu checks AC/HS high-dose SSI ordered, however patient is refusing this hypoglycemic protocol in place Diabetic diet ordered hold metformin (4) Tobacco abuse: Code(s): Z72.0 - Tobacco use Status: Acute Assessment and Plan: smoking cessation nicotine patch ordered Time Spent With Patient Time with patient: Greater than 35 minutes Subjective Date/time seen: 10/21/24 18:16 Interval history: Interval history: This is a 63-year-old female with a significant past medical history of COPD, Hypertension, borderline DM, hx of DVT, current everyday smoker who presented to the hospital with shortness of breath/dyspnea. Patient states that she has been feeling more short of breath the past few days and presented for further evaluation. Patient is currently retired however uninsured at this time. She does have her inhalers and nebulizer at home with refills. She states that her O2 saturation is normally between 80-92% at home. She is more short of breath with activity than usual. She denies any fever, chills, nausea, vomiting, diarrhea, abdominal pain, chest pain, SOB. She does report productive cough. She states she was exposed to her daughter who has been recently ill. Patient states that workup in the hospital included chest x-ray which was negative for any acute cardiopulmonary disease. Initial labs showed a normal white blood cell count of 10.5, eosinophils 0.86, sodium 147, potassium 3.6, blood sugar 112-194, proBNP 284, troponin 14.3. Respiratory panel was negative for influenza a and B, RSV, COVID. Blood cultures were obtained and are pending. Subjective: feeling much better today. She did have a home O2 evaluation and is requiring 2 L at rest and with activity. She denies any new complaints today. Labs reviewed. Exam Narrative: General: In no acute distress, well nourished Cardiac: Normal S1 and S2. RRR, No murmur, gallops or friction rubs, peripheral pulses intact. Respiratory: Lungs clear to auscultation with mild expiratory wheezing, no adventitious lung sounds, currently on 2L NC, reports SOB with exertion Gastrointestinal: soft, non-distended, non-tender, normoactive bowel sounds. : voiding without difficulty. Extremities: moves all extremities well, 1+ edema to BLE Neuro: Alert and oriented x4 Objective Data Vital Signs Vital Signs: Vital Signs - 24 hr 10/21/24 00:00 10/21/24 00:22 10/21/24 00:43 Temperature 97.9 F Pulse Rate 90 93 90 Respiratory Rate 20 20 20 Blood Pressure 161/88 H Pulse Oximetry 93 91 97 Oxygen Delivery Nasal Cannula Oxygen Flow Rate 2 2 2 10/21/24 05:45 10/21/24 05:55 10/21/24 08:00 Temperature Pulse Rate 83 73 78 Respiratory Rate 20 20 14 Blood Pressure Pulse Oximetry 91 98 96 Oxygen Delivery Nasal Cannula Oxygen Flow Rate 2 2 10/21/24 08:00 10/21/24 13:00 10/21/24 13:01 Temperature 98.5 F Pulse Rate 78 85 Respiratory Rate 14 Blood Pressure 164/82 H Pulse Oximetry 96 89 L 87 L Oxygen Delivery Nasal Cannula Room Air Room Air Oxygen Flow Rate 2 10/21/24 13:05 10/21/24 13:06 10/21/24 13:12 Temperature Pulse Rate 89 105 H 88 Respiratory Rate 20 20 Blood Pressure Pulse Oximetry 92 91 97 Oxygen Delivery Nasal Cannula Oxygen Flow Rate 2 Intake/Output Intake/Output: Intake & Output 10/18/24 10/19/24 10/20/24 10/21/24 23:59 23:59 23:59 23:59 Intake Total 440 1755 925 Output Total 350 Balance 440 1405 925 Meds/Results Medications: Active Medications Generic Name Dose Route Start Last Admin Trade Name Freq PRN Reason Stop Dose Admin Acetaminophen 650 mg 10/19/24 15:13 10/20/24 20:54 Acetaminophen 325 Mg Tablet PO 650 mg Q4H PRN Administration Mild Pain (1-3) or Fever Albuterol/Ipratropium 3 ml 10/19/24 18:30 10/21/24 13:05 Ipratropium 0.5 Mg/Albuterol Sulfate 2.5 Mg Ampul.Neb 3 Ml INHALATION 3 ml Q6HRT HOLDEN Administration Azithromycin 500 mg 10/19/24 15:20 10/21/24 09:43 Azithromycin 250 Mg Tablet PO 500 mg DAILY HOLDEN Administration Benzonatate 200 mg 10/19/24 18:40 10/21/24 18:15 Benzonatate 100 Mg Capsule PO Not Given TID [facility] Dextrose 12.5 gm 10/19/24 15:13 Dextrose 50% 25 Gm/50 Ml Syringe IV PUSH PRN PRN Hypoglycemia Protocol Enoxaparin Sodium 100 mg 10/21/24 21:00 Enoxaparin 100 Mg/Ml Syringe SUB-Q Q12HR [facility] Glucagon 1 mg 10/19/24 15:13 Glucagon For Inj 1 Mg Vial IM PRN PRN Hypoglycemia Protocol Glucose 15 gm 10/19/24 15:13 Glucose Oral Gel 15 Gm Of Glucse In 37.5 Gm Tube PO PRN PRN Hypoglycemia Protocol Dextrose 1,000 mls @ 100 mls/hr 10/19/24 15:13 Dextrose 5% 1,000 Ml IVPB PRN PRN Hypoglycemia Protocol Insulin Human Lispro 4 - 8 units 10/19/24 17:00 10/21/24 18:15 Insulin Human Lispro (*Bkc) 1,000 Units/10 Ml Vial SUB-Q Not Given TIDWM [facility] Protocol Losartan Potassium 50 mg 10/19/24 15:20 10/21/24 09:44 Losartan Potassium 50 Mg Tablet PO 50 mg DAILY HOLDEN Administration Methylprednisolone Sodium Succinate 40 mg 10/21/24 09:00 10/21/24 18:11 Methylprednisolone Sod Succ 40 Mg Vial IV PUSH 40 mg BID HOLDEN Administration Nicotine 1 patch 10/20/24 17:45 10/21/24 09:45 Nicotine (*Pbkc) 21 Mg Patch TRANSDERM Not Given DAILY HOLDEN Ondansetron HCl 4 mg 10/19/24 15:13 10/20/24 11:20 Ondansetron Inj 4 Mg/2 Ml Vial IV PUSH 4 mg Q6H PRN Administration Nausea And Vomiting Radiology Results: ITS Impressions Chest X-Ray 10/19/24 12:56 IMPRESSION: No active cardiopulmonary disease Labs Labs: Laboratory Results - last 24 hr 10/20/24 10/21/24 10/21/24 20:46 05:00 08:07 WBC 14.2 H RBC 4.90 Hgb 14.0 Hct 44.9 MCV 91.6 MCH 28.6 MCHC 31.2 L RDW 13.9 Plt Count 317 MPV 10.1 Immature Gran % (Auto) 0.7 H Neut % (Auto) 76.2 H Lymph % (Auto) 15.9 L [place] % (Auto) 7.0 Eos % (Auto) 0.0 L Baso % (Auto) 0.2 Lymph # (Auto) 2.26 [place] # (Auto) 1.00 H Eos # (Auto) 0.00 L Baso # (Auto) 0.03 Abs Immat Gran (auto) 0.10 H Absolute Neuts (auto) 10.84 H Absolute Nucleated RBC 0.00 Nucleated RBC % 0.0 Sodium 145 Potassium 3.9 Chloride 106 Carbon Dioxide 30 Anion Gap 9 BUN 17 Creatinine 0.77 Estim Creat Clear Calc 79 Estimated GFR > 60 Glucose 121 H POC Capillary Glucose 192 H 113 H Calculated Osmolality 302 H Calcium 9.4 Total Bilirubin 0.4 AST < 10 L ALT 22 Alkaline Phosphatase 68 Total Protein 6.9 Albumin 3.6 10/21/24 10/21/24 11:59 18:10 WBC RBC Hgb Hct MCV MCH MCHC RDW Plt Count MPV Immature Gran % (Auto) Neut % (Auto) Lymph % (Auto) [place] % (Auto) Eos % (Auto) Baso % (Auto) Lymph # (Auto) [place] # (Auto) Eos # (Auto) Baso # (Auto) Abs Immat Gran (auto) Absolute Neuts (auto) Absolute Nucleated RBC Nucleated RBC % Sodium Potassium Chloride Carbon Dioxide Anion Gap BUN Creatinine Estim Creat Clear Calc Estimated GFR Glucose POC Capillary Glucose 122 H 199 H Calculated Osmolality Calcium Total Bilirubin AST ALT Alkaline Phosphatase Total Protein Albumin Quality VTE Prophylaxis VTE prophylaxis: pharmacologic ordered
[2024-10-21] MEDS: ACETAMINOPHEN 325 MG TABLET 650 MG PO (20:20)
[2024-10-21] MEDS: ENOXAPARIN 100 MG/ML SYRINGE SUB-Q (20:21)
[2024-10-21 20:25] LABS: Glucose Point of Care 200 mg/dl (65-105)
[2024-10-22] VITALS (7 sets, daily range): BP systolic 110–151; BP diastolic 62–74; PULSE 78–93; RESP 16–20; TEMP 36.9–37; O2SAT 95–99
[2024-10-22 05:09] LABS: Basophils Absolute Auto 0.02 K/mm3 (0.00-0.10); Basophils Percent Auto 0.2 % (0.0-1.0); Eosinophils Absolute Auto 0.02 K/mm3 (0.02-0.50); Eosinophils Percent Auto 0.2 % (1.0-6.0); Hematocrit 44.6 % (35.0-49.0); Immature Granulocyte Absolute 0.09 K/mm3 (0.00-0.00); Immature Granulocyte Percent A 0.8 % (0.0-0.0); Lymphocytes Percent Auto 13.3 % (18.0-42.0); Mean Corpuscular HGB Conc 31.4 g/dL (32-36); Mean Corpuscular Hemoglobin 28.6 pg (27.0-31.0); Mean Platelet Volume 10.2 fl (9.2-11.8); Monocytes Absolute Auto 0.47 K/mm3 (0.10-0.90); Monocytes Percent Auto 4.2 % (2.0-11.0); Neutrophils Absolute Auto 9.14 K/mm3 (1.70-7.20); Neutrophils Percent Auto 81.3 % (50.0-70.0); Platelet Count Result 304 K/mm3 (150-420); Red Cell Distribution Width 13.8 % (11.6-14.4); White Blood Count 11.2 K/mm3 (4.8-10.8)
[2024-10-22 05:11] LABS: Hemoglobin A1C 5.6 % (<5.7)
[2024-10-22 05:24] LABS: Alanine Aminotransferase 24 U/L (14-59); Albumin Level 3.7 g/dL (3.4-5.0); Alkaline Phosphatase 74 U/L (46-116); Anion Gap 8 mmol/L (4-12); Aspartate Amino Transferase 10 U/L (15-37); Bilirubin,Total 0.4 mg/dL (0.00-1.00); Blood Urea Nitrogen 20 mg/dL (7-18); Calcium 9.3 mg/dL (8.5-10.1); Carbon Dioxide 30 mmol/L (21-32); Chloride 106 mmol/L (98-108); Estimated CRCL calculation 76 ml/min; Estimated Glomerular Filt Rate > 60; Glucose 139 mg/dL (70-99); Osmolality Calculated 302 mOsm/kg (285-295); Potassium 3.8 mmol/L (3.5-5.1); Sodium 144 mmol/L (136-145); Total Protein 7.1 g/dL (6.4-8.2)
[2024-10-22] MEDS: IPRATROPIUM 0.5 MG/ALBUTEROL SULFATE 2.5 MG AMPUL.NEB 3 ML INHALATION ×2 (05:36→11:52)
[2024-10-22] MEDS: ACETAMINOPHEN 325 MG TABLET 650 MG PO (05:48)
[2024-10-22 07:30] LABS: Glucose Point of Care 113 mg/dl (65-105)
[2024-10-22] MEDS: ENOXAPARIN 100 MG/ML SYRINGE SUB-Q (08:57)
[2024-10-22] MEDS: methylPREDNISolone SOD SUCC 40 MG VIAL IV PUSH (08:58)
[2024-10-22] MEDS: AZITHROMYCIN 250 MG TABLET 500 MG PO (09:02)
[2024-10-22] MEDS: BENZONATATE 100 MG CAPSULE 200 MG PO ×2 (09:03→12:01)
[2024-10-22] MEDS: LOSARTAN POTASSIUM 25 MG TABLET 75 MG PO (09:03)
--- NOTE | 2024-10-22 10:47 | PM.DS ---
DS: Admitting Diagnosis Discharge Date 10/22/24 Admitting Diagnosis Acute exacerbation of COPD hypertension type II DM tobacco abuse DS: Discharge Diagnosis Discharge Diagnosis (1) Acute exacerbation of chronic obstructive pulmonary disease (COPD): Code(s): J44.1 - Chronic obstructive pulmonary disease with (acute) exacerbation Status: Acute (2) Hypertension: Code(s): I10 - Essential (primary) hypertension Status: Acute (3) Type 2 diabetes mellitus: Code(s): E11.9 - Type 2 diabetes mellitus without complications Status: Acute (4) Tobacco abuse: Code(s): Z72.0 - Tobacco use Status: Acute DS: Summary Hospital Course Reason for hospitalization: Acute exacerbation of COPD hypertension type II DM tobacco abuse Hospital Course: This is a 63-year-old female with a significant past medical history of COPD, Hypertension, borderline DM, hx of DVT, current everyday smoker who presented to the hospital with shortness of breath/dyspnea. Patient states that she has been feeling more short of breath the past few days and presented for further evaluation. Patient is currently retired however uninsured at this time. She does have her inhalers and nebulizer at home with refills. She states that her O2 saturation is normally between 80-92% at home. She is more short of breath with activity than usual. She denies any fever, chills, nausea, vomiting, diarrhea, abdominal pain, chest pain, SOB. She does report productive cough. She states she was exposed to her daughter who has been recently ill. Patient states that workup in the hospital included chest x-ray which was negative for any acute cardiopulmonary disease. Initial labs showed a normal white blood cell count of 10.5, eosinophils 0.86, sodium 147, potassium 3.6, blood sugar 112-194, proBNP 284, troponin 14.3. Respiratory panel was negative for influenza a and B, RSV, COVID. Blood cultures were obtained and are pending. Patient is feeling much better today. She had a home O2 evaluation and will require 2L NC at rest and with activity. This was set up for her at home. She will need to finish solumedrol dose pack and Azithromycin as prescribed. She will follow up with PCP in 1 week. We also prescribed her Xarelto for her DVT as she has only been getting aspirin because of lack of insurance. Medication help resources were given to her this admission. Once she is able to get insurance again it was suggested to get a nut orchardist for management of her COPD. She has albuterol rescue inhaler and nebulizer at home. Final diagnosis: Acute exacerbation of COPD Status at Discharge Cognitive/behavioral status at discharge: Alert and oriented x3 Functional status at discharge: independent ambulation Overall status at discharge: patient is progressing back to baseline Time Spent with Patient Time attestation: Total time spent providing and/or coordinating discharge services: Time spent: Greater than 30 minutes Exam Narrative: General: In no acute distress, well nourished Cardiac: Normal S1 and S2. RRR, No murmur, gallops or friction rubs, peripheral pulses intact. Respiratory: Lungs clear to auscultation with mild expiratory wheezing in left lung greater than right, no adventitious lung sounds, currently on 2L NC, reports SOB with exertion Gastrointestinal: soft, non-distended, non-tender, normoactive bowel sounds. : voiding without difficulty. Extremities: moves all extremities well, 1+ edema to BLE Neuro: Alert and oriented x4 DS: Data Data Completed and Pending Completed studies during hospitalization: Chest x-ray Pending studies at discharge: None Labs on day of discharge: Labs from last 24 hours 10/22/24 10/22/24 10/21/24 07:25 04:46 20:19 WBC 11.2 H RBC 4.90 Hgb 14.0 Hct 44.6 MCV 91.0 MCH 28.6 MCHC 31.4 L RDW 13.8 Plt Count 304 MPV 10.2 Immature Gran % (Auto) 0.8 H Neut % (Auto) 81.3 H Lymph % (Auto) 13.3 L [place] % (Auto) 4.2 Eos % (Auto) 0.2 L Baso % (Auto) 0.2 Lymph # (Auto) 1.50 [place] # (Auto) 0.47 Eos # (Auto) 0.02 Baso # (Auto) 0.02 Abs Immat Gran (auto) 0.09 H Absolute Neuts (auto) 9.14 H Absolute Nucleated RBC 0.00 Nucleated RBC % 0.0 Sodium 144 Potassium 3.8 Chloride 106 Carbon Dioxide 30 Anion Gap 8 BUN 20 H Creatinine 0.80 Estim Creat Clear Calc 76 Estimated GFR > 60 Glucose 139 H POC Capillary Glucose 113 H 200 H Hemoglobin A1c 5.6 Calculated Osmolality 302 H Calcium 9.3 Total Bilirubin 0.4 AST 10 L ALT 24 Alkaline Phosphatase 74 Total Protein 7.1 Albumin 3.7 10/21/24 10/21/24 18:10 11:59 WBC RBC Hgb Hct MCV MCH MCHC RDW Plt Count MPV Immature Gran % (Auto) Neut % (Auto) Lymph % (Auto) [place] % (Auto) Eos % (Auto) Baso % (Auto) Lymph # (Auto) [place] # (Auto) Eos # (Auto) Baso # (Auto) Abs Immat Gran (auto) Absolute Neuts (auto) Absolute Nucleated RBC Nucleated RBC % Sodium Potassium Chloride Carbon Dioxide Anion Gap BUN Creatinine Estim Creat Clear Calc Estimated GFR Glucose POC Capillary Glucose 199 H 122 H Hemoglobin A1c Calculated Osmolality Calcium Total Bilirubin AST ALT Alkaline Phosphatase Total Protein Albumin Preliminary micro results at discharge 10/19/24 12:23 Blood Culture - Preliminary Blood 10/19/24 12:20 Blood Culture - Preliminary Blood Procedures/Treatments: None Discharge Plan Discharge Attending physician on discharge: Dalton Dumont Consulting providers: Lilibeth Shi Discharging Clinician: Lilibeth Shi Anticipated Discharge Date/Time: 10/21/24 16:05 Patient Disposition: Home, Self-Care Activity: as tolerated Diet: as tolerated Discharge Instructions: Wear 2 L of oxygen at rest and with activity finish Medrol Dosepak as prescribed continue with your albuterol rescue inhaler as well as nebulized breathing treatments as needed. Do not overuse your albuterol inhaler or nebulizers. If you are not getting adequate relief with a couple times of use then you need to return to the hospital. When you do get insurance, it would be méndez to follow with a nut orchardist on a regular basis for your lung disease. finish your through azithromycin as prescribed for your COPD exacerbation if you are still smoking, stop or reduce as much as possible. Continuing to smoke will only increase your risk of exacerbations I wrote for a prescription of Xarelto for 3 month supply for your DVT Patient Instructions: Antibiotic Form, Azithromycin (By mouth), Methylprednisolone (By mouth), Rivaroxaban (By mouth), Deep Vein Thrombosis (DC), COPD (Chronic Obstructive Pulmonary Disease) (DC) Patient Language: Korean Stand Alone Forms: General Discharge Information Follow-up/Referrals: UNKNOWN,DOCTOR [Primary Care Provider] - 1 week Discharge Medications: New Xarelto 10 mg tablet 10 mg PO DAILY Qty: 90 0RF Rx Instructions: for 35 days azithromycin [Zithromax] 250 mg Tablet 500 mg PO DAILY Qty: 1 0RF methylprednisolone 4 mg tablets,dose pack See Rx Instructions .ROUTE .COMPLEX Qty: 21 0RF Rx Instructions: for 6 days Continued losartan 50 mg tablet 50 mg PO DAILY albuterol sulfate 2.5 mg /3 mL (0.083 %) solution for nebulization 2.5 mg inhalation Q4-6H PRN (Reason: shortness of breath or wheezing) albuterol sulfate 90 mcg/actuation HFA aerosol inhaler 2 inh INHALATION Q6H PRN (Reason: bronchospasm) metformin 500 mg tablet extended release 24 hr 500 mg PO BID escitalopram oxalate 10 mg tablet 10 mg PO DAILY Spiriva Respimat 2.5 mcg/actuation mist 2 inh inhalation DAILY benzonatate 200 mg capsule 200 mg PO TID PRN (Reason: cough) Qty: 60 0RF Date of admission: 10/19/24 13:40 Primary Care Provider: UNKNOWN,DOCTOR Admitting Provider: Dalton Dumont Attending physician on admission: Lilibeth Shi Condition: Improved Quality VTE Prophylaxis VTE prophylaxis: pharmacologic ordered Hospitalist MIPS Heart Failure (Exclusion) Patient has history of Heart Transplant or Left Ventricular Assistive Device?: No IF YES, STOP HERE Heart Failure (Qualifier) Patient has current or prior documentation of LVEF less than or equal to 40%, or mod/servere depressed LVSF?: No IF NO, STOP HERE
[2024-10-22 11:41] LABS: Glucose Point of Care 111 mg/dl (65-105)
--- NOTE | 2024-10-22 14:20 | PC.NURSE ---
Discharge instructions given to patient and patient's daughter. Both voiced understanding. IV site discontinued prior to discharge. Personal items sent home with patient. Patient left unit in w/c accompanied by nurse and patient's daughter. Patient left hospital in privately owned vehicle.
--- NOTE | 2024-10-24 09:54 | PC.NURSE ---
Discharge call back complete, no questions regrding dc instructions, doing ok at home
== END 2024-10-22 14:20 | disposition home or self-care (01) ==
LOC: CHSED 13:39 → CHS2ND 13:45
PROVIDERS: Admitting Provider Internal Medicine; Emergency Provider Emergency Medicine; Visit Provider Nurse Practitioner Acute Care
DX: J44.1 Chronic obstructive pulmonary disease with (acute) exacerbation (principal); I10 Essential (primary) hypertension; E11.9 Type 2 diabetes mellitus without complications; F17.210 Nicotine dependence, cigarettes, uncomplicated; Z20.822 Contact with and (suspected) exposure to COVID-19; Z86.718 Personal history of other venous thrombosis and embolism; Z79.51 Long term (current) use of inhaled steroids; Z79.84 Long term (current) use of oral hypoglycemic drugs
CPT/HCPCS: 36415; 71045; 80053; 82948; 83036; 83605; 83735; 83880; 84484; 85025; 85610; 85730; 87040; 87637; 93005; 94618; 94640; 96365; 96372; 96374; 96375; 96376; 99285; A9270; G0378; J1650; J2405; J2919; J3475

== ENCOUNTER 2025-02-17 01:06 | Emergency (ER) | payer SELFPAY ==
[2025-02-17] VITALS (17 sets, daily range): BP systolic 128–161; BP diastolic 70–96; PULSE 82–112; RESP 18–40; TEMP 36.2; O2SAT 91–100
--- NOTE | ~2025-02-17 | CT_ITS ---
Non-contrast CT scan of the Abdomen and Pelvis Clinical indication: Left abdominal pain Technique: 2.5 mm axial scans were obtained through the abdomen and pelvis without intravenous or or al contrast. Dose reduction technique was used on this scan by utilizing automated exposure control a nd iterative reconstruction technique. The dose-length product (DLP) was 1311.61 mGy-cm. Findings: Images through the lung bases reveal no abnormalities. 4 mm nonobstructing left renal stone present. No right renal stone. No ureteral stone or hydronephros is on either side. The liver, spleen, pancreas, and right adrenal gland appear normal. 1.3 cm left adrenal nodule is pre sent, most likely adenoma. Cholecystectomy clips are present. There is no aortic aneurysm. There is no evidence of bowel obstruction. Small to moderate fat-containing of focal hernia present. Images through the pelvis were performed. There is no evidence of ascites or lymphadenopathy. Urinary bladder unremarkable. Status post hysterectomy. No pelvic mass seen. There is advanced degenerative change of both hip joints. Impression: No acute abnormality. 1.3 cm left adrenal nodule, likely adenoma. 4 mm nonobstructing left renal stone. Reviewed, dictated and finalized at [facility]. Impression: No acute abnormality. 1.3 cm left adrenal nodule, likely adenoma. 4 mm nonobstructing left renal stone.
--- NOTE | ~2025-02-17 | XR_ITS ---
Portable chest x-ray Comparison: 10/19/2024 Clinical History: Shortness of breath Findings: Lungs are clear, without focal consolidation or pleural effusion. Cardiomediastinal silho uette is stable. Bones and soft tissues are unremarkable. Impression: Clear lungs. Reviewed, dictated and finalized at location . Impression: Clear lungs.
--- OUTSIDE RECORDS SUMMARY | 2025-02-17 01:10 | XMS_ITS | Referral Summary ---
Author Organization [facility] [address] Address [address] [place] [address] Care Team Providers Care Housekeeper And Laundry Assistant Name Role Phone Lesly Martin Primary Care Provider [phone] Allergies No known active allergies Medications rivaroxaban (XARELTO) 10 mg tablet Take 10 mg by mouth daily 05/03/2019 Active albuterol HFA (PROVENTIL HFA,VENTOLIN HFA,PROAIR HFA) 90 mcg/actuation inhaler INHALE 2 PUFFS BY MOUTH EVERY 4 TO 6 HOURS NEEDED 04/26/2019 Active Symbicort 160-4.5 mcg/actuation inhaler INHALE 2 PUFFS BY MOUTH TWICE DAILY DIRECTED 04/21/2021 Active cyclobenzaprine (FLEXERIL) 10 mg tablet Take 1 tablet by mouth 2 (two) times a day as needed 04/24/2019 Active loratadine (CLARITIN) 10 mg tablet Take 10 mg by mouth daily 04/01/2021 Active albuterol 2.5 mg /3 mL (0.083 %) nebulizer solution Inhale 2.5 mg every 6 (six) hours as needed Active traMADoL (ULTRAM) 50 mg tablet Take 50 mg by mouth every 6 (six) hours as needed Active tiotropium bromide (SPIRIVA RESPIMAT) 2.5 mcg/actuation inhaler Inhale 5 mcg daily Active varenicline (CHANTIX) 1 mg tablet TAKE 1 TABLET BY MOUTH TWICE DAILY (TAKE WITH A FULL GLASS OF WATER) 60 tablet 01/03/2022 Active Active Problems No known active problems Social History Tobacco Use Types Packs/Day Years Used Date Smoking Tobacco: Every Day Cigarettes Smokeless Tobacco: Never Personal Safety Answer Date Recorded Getting School Help Needed Not on file 11/28 Comments Unknown Sex and Gender Information Value Date Recorded Sex Assigned at Not on file Legal Sex Female 2:54 PM ALLIED HEALTH TEACHER Gender Identity Not on file Sexual Orientation Not on file Last Filed Vital Signs Vital Sign Reading Time Taken Comments Blood Pressure 140/84 12/13/2021 10:49 AM ALLIED HEALTH TEACHER Pulse 86 12/13/2021 10:49 AM ALLIED HEALTH TEACHER Temperature - - Respiratory Rate - - Oxygen Saturation 95% 12/13/2021 10:49 AM ALLIED HEALTH TEACHER Inhaled Oxygen Concentration - - Weight 124.3 kg (274 lb) 12/13/2021 10:49 AM ALLIED HEALTH TEACHER Height 170.2 cm (5' 7 ) 12/13/2021 10:49 AM ALLIED HEALTH TEACHER Body Mass Index 42.91 12/13/2021 10:49 AM ALLIED HEALTH TEACHER Plan of Treatment Not on file Insurance [facility] Care Teams Housekeeper And Laundry Assistant Relationship Specialty Start Date End Date Lesly Martin PA [address] [place] [address] PCP - General Emergency Medicine 12/06/21
--- OUTSIDE RECORDS SUMMARY | 2025-02-17 01:10 | XMS_ITS | Encounter Summary ---
Author Organization [facility] Address [facility] [place] [address] Care Team Providers Care Field Checker Name Role Phone Lesly Martin Primary Care Provider [phone] Dom Serrato MD Unavailable Encounter Details Date Type Department Care Team (Late st Contact Info) Description 05/14/2019 Abstract [facility] [address] [place] [address] Dom Serrato MD [address] [facility], [address] [place] [address] Social History Tobacco Use Types Packs/Day Years Used Date Smoking Tobacco: Every Day Smokeless Tobacco: Never Alcohol Use Standard Drinks/Week Comments No 0 (1 standard drink = 0.6 oz pur e alcohol) AUDIT-C Answer Date Recorded Frequency of Alcohol Consumption Never 05/14/2019 Average Number of Drinks Not on file 019 Frequency of Binge Drinking Not on file 03/2019 Comments Unknown Sex and Gender Information Value Date Recorded Sex Assigned at Female 05/17/2019 10:01 AM CDT Legal Sex Female 5:45 PM END TRIMMER Gender Identity Female 05/17/2019 10:01 AM CDT Sexual Orientation Not on file Occupation Industry Job Start Date Job End Date Not on file Not on file Not on file Not on file documented as of this encounter Functional Status documented as of this encounter Plan of Treatment Not on file documented as of this encounter Visit Diagnoses Not on filedocumented in this encounter Additional Health Concerns Infection Onset Date Last Indicated Resolved Time COVID-19 Rule Out 10/06/2021 10/06/2021 10/06/2021 1:51 PM END TRIMMER COVID-19 Confirmed 10/06/2021 10/06/2021 12:32 AM END TRIMMER COVID-19 Rule Out 10/06/2022 10/06/2022 10/06/2022 8:03 PM END TRIMMER documented as of this encounter Care Teams Field Checker Relationship Specialty Start Date End Date Lesly Martin PA [address] [address] PCP - General PHYSICIAN AREA MANAGER 05/10/19 Dom Serrato MD [address] [address] Vascular/Market Analyst INTERNAL MEDICINE 05/13/19 documented as of this encounter
--- OUTSIDE RECORDS SUMMARY | 2025-02-17 01:10 | XMS_ITS | Data Portability ---
Author Organization [facility] [place] Address [address] [place] [address] Care Team Providers Care Engineering Aid Name Role Phone ISAIAS SMITH Referring Provider [phone] Assessment No assessment recorded. Plan of Treatment Reminders Order Date Submit Date Provider Last Modified By Organization Details Last Modified Time Details Appointments None recorded. Lab urinalysis, dipstick 2022 023 [place], [address], [place], [address], 11:45:47 Referral urogynecolo gist referral 2022 023 [email or web address] Cheikh Navarro MD, [address], [address], [place], [address], 3 12:06:56 Procedures None recorded. Surgeries None recorded. Imaging None recorded. Medication Orders None recorded. Patient TargetsNo targets recorded. Patient InstructionsNo instructions recorded. Reason for Referral Urogynecologist Referral for Mixed urinary incontinence Referring Physician: Ingrid Masters, EXTRUSION PRESS SUPERVISOR, Encounter Date: 02/16/2023 Results Created Date Observation Date Name Description Value Unit Range Abnormal Flag Note LastModifiedBy Organization Detail LastModifiedTime 02/17/2002/16/2023 urina lysis , dipst ick pH 5 Not Available [place] [address], [place], [address], 02/16/2023 11:45:02 02/17/20 23 02/16/2023 urina lysis , dipst ick Specific [place] 1.000 Not Available [facility] [address], [place], [address], 02/16/2023 11:45:02 02/17/20 23 02/16/2023 urina lysis , dipst ick Appearance clear Not Available [facility] [address], [place], [address], 02/16/2023 11:45:02 02/17/20 23 02/16/2023 urina lysis , dipst ick Color yellow Not Available [place] [address], [place], [address], 02/16/2023 11:45:02 Result Notes None recorded. Procedures Surgical History Date Name Laterality Status Provider Name and Address Organization Details Recorded Time 023 Date of Last Mammogram completed Ernestina Park [facility] 02/16/2023 11:28:14 020 Date of Last Colonoscopy completed Ingrid Masters [facility] [address], [place], [address], [facility] 02/16/2023 11:55:32 990 Total Hysterectomy completed Ingrid Masters [facility] [address], [place], [address], [facility] 02/16/2023 11:56:09 990 cholecystectomy completed [facility] 02/16/2023 11:33:26 990 Ectopic completed Ernestina Park [facility] 02/16/2023 11:33:45 Other completed Ingrid Masters [facility] [address], [place], [address], [facility] 02/16/2023 11:56:37 Imaging Results None recorded. Procedure Notes None recorded. Medical Equipment None Reported. Allergies No known drug allergies Medications Name Sig Start Date Stop Date Status Note LastModified by Organization Details LastModified Time cyclobenzap rine 10 mg tablet TAKE 1 TABLET BY MOUTH TWICE DAILY NEEDED FOR MUSCLE SPASM active Not Available Not Available No t Available clindamycin HCl 300 mg capsule TAKE 1 CAPSULE BY MOUTH EVERY 8 HOURS 02/16 completed Not Available Not Available Not Available albuterol sulfate 2.5 mg/3 mL (0.083 %) solution for nebulizatio n USE 1 VIAL IN NEBULIZER 4 TIMES DAILY DIRECTED active Not Available Not Available No t Available azithromyci n 250 mg tablet TAKE 2 TABLETS BY MOUTH ON DAY 1, AND THEN TAKE 1 TABLET BY MOUTH ONCE A DAY ON DAY 2 THROUGH DAY 5 02/16 completed Not Available Not Available Not Available benzonatate 200 mg capsule TAKE 1 CAPSULE BY MOUTH THREE TIMES DAILY DIRECTED FOR 10 DAYS 02/16 completed Not Available Not Available Not Available prednisone 20 mg tablet TAKE 2 TABLETS BY MOUTH ONCE DAILY FOR 5 DAYS 02/16 completed Not Available Not Available Not Available omeprazole 40 mg capsule,del ayed release TAKE 1 CAPSULE BY MOUTH ONCE DAILY IN THE EVENING FOR 30 DAYS active Not Available Not Available No t Available citalopram 20 mg tablet TAKE 1 TABLET BY MOUTH ONCE DAILY 02/16 completed Not Available Not Available Not Available doxycycline monohydrate 100 mg capsule TAKE 1 CAPSULE BY MOUTH TWICE DAILY FOR 10 DAYS 02/16 completed Not Available Not Available Not Available cephalexin 500 mg capsule TAKE 1 CAPSULE BY MOUTH EVERY 6 HOURS 02/16 completed Not Available Not Available Not Available gabapentin 300 mg capsule TAKE 1 TO 2 CAPSULES BY MOUTH THREE TIMES DAILY NEEDED FOR ANXIETY 02/16 completed Not Available Not Available Not Available albuterol sulfate HFA 90 mcg/actuati on aerosol inhaler INHALE 2 PUFFS BY MOUTH EVERY 4 TO 6 HOURS NEEDED active Not Available Not Available No t Available ondansetron 4 mg disintegrat ing tablet DISSOLVE 1 TABLET IN MOUTH EVERY [address] ON TOP OF THE TONGUE WHERE THEY WILL DISSOLVE THEN SWALLOW 02/16 completed Not Available Not Available Not Available hydroxyzine pamoate 25 mg capsule TAKE 1 CAPSULE BY MOUTH 4 TIMES DAILY NEEDED 02/16 completed Not Available Not Available Not Available escitalopra m 10 mg tablet TAKE 1 TABLET BY MOUTH ONCE DAILY active Not Available Not Available No t Available bupropion HCl XL 150 mg 24 hr tablet, extended release 02/16 completed Not Available Not Available Not Available Spiriva with HandiHaler 18 mcg and inhalation capsules active Not Available Not Available Not Available Symbicort 160 mcg-4.5 mcg/actuati on HFA aerosol inhaler INHALE 2 PUFFS BY MOUTH TWICE DAILY DIRECTED active Not Available Not Available No t Available Xarelto 10 mg tablet TAKE 1 TABLET BY MOUTH DAILY active Not Available Not Available No t Available Vitals Date Recorded Body height Body mass index (BMI) Body weight Systolic blood pressure Diastolic blood pressure Provider Name and Address Organization Details Last Updated DateTime 02/16/2023 170.18 cm 32 kg/m2 85938.84 g 125 mm[Hg] 83 mm[Hg] Ernestina Park [facility] 11:25:20 Social History Question Answer Notes LastModified by [employer] Details LastModified Time Tobacco Smoking Status Current Every Day Smoker Ernestina Park [facility], [facility] 02/16/2023 11:31:41 In The 14 Days Before Symptom Onset, Have You Had Close Contact With A Laboratory-confirm ed COVID-19 While That Case Was Ill? No Information n ot available 02/16/2023 In The 14 Days Before Symptom Onset, Have You Had Close Contact With A Person Who Is Under Investigation For COVID-19 While That Person Was Ill? No Information not available 02/16/2023 Have You Been To An Area Known To Be High Risk For COVID-19? No Information not available 02/16/2023 Sex: Unknown Functional Status Question Answer Note LastModified by [employer] Details LastModified Time Do you use any illicit or recreational drugs? No Information not available 02/16/2023 What is your level of alcohol consumption? Occasional Information not available 02/16/2023 Mental Status None recorded. Family History Relationship Description Onset Age of this Age Resolved Age Notes LastModified by Organization Details LastModified Time Mother Anemia Not available 11:29:49 Mother Malignant tumor of colon Not available 2022 11:30:27 Mother Malignant neoplasm of lung Not available 2022 11:30:55 Paternal Aunt Malignant tumor of breast Not available 2022 11:30:08 Brother Diabetes mellitus Not available 2022 11:30:38 Father Hypercholest erolemia Not available 2022 11:30:47 Father Neoplasm of urinary bladder Not available 2022 11:31:16 Medical History Condition Response Allergies (Food, seasonal, environmental ) N Other Y Breast Cancer N Drug/Latex Allergies/Reactions N Blood Transfusion N Dermatologic Disorders N Lung Disease N Defects or Inherited Disease N Breast Problem N Gestational Diabetes N Hematologic disorders N Anesthesia Complications N History of STI N Deep Vein Thrombosis Y Polycystic ovary syndrome N Anxiety Disorder Y Autoimmune disease N Arthritis N Infertility N Polyps N Acid Reflux (GERD) Y History of abnormal pap N Cancer N Stroke N Varicosities N Neurologic/Epilepsy N Endometriosis N High Cholesterol N Headaches N Fibromyalgia N Kidney Disease N Heart Problems N Kidney or Bladder Problems N Thyroid Problems N GI Problems N Eating Disorder N Anemia N Art (IVF or FET) N Psychiatric Illness N Ovarian Cancer N Diabetes Y Pulmonary (TB, Asthma) N Hepatitis/Liver Disease N No Past Medical History N Eczema N Urinary Tract Infection N Abuse/Domestic Violence N Asthma Y Trauma/Violence N Depression/ depression N Heart Disease N Pre-Eclampsia N Hypertension N Osteoporosis N Thrombophilias N Gynecological History Statement/Question Response Abnormal Pap N Date of Last Colonoscopy 02/10/2020 Date of Last Mammogram 10/09/2022 Most Recent Bone Density Sexually Active? N STIs/STDs N Menses Monthly N HPV Vaccine N Date of Last Pap Smear Current Control Method Hysterectom y LMP Unknown Obstetrics History GPAL:G 3 P 2 0 1 2 Type Value Full Term 2 Spontaneous 1 Living 2 Total 3 Past Encounters Encounter ID Performer Location Encounter Start Date Encounter Closed Date Diagnosis/Indication Diagnosis SNOMED-CT Code Diagnosis ICD10 Code Diagnosis Note [id number] Ingrid Masters [facility] [address] [address] 02/16/2023 10:44:44 02/16/2023 12:06:56 Mixed urinary incontinence [id number] N39.46 Today we discussed recommenda tion for urogynecol ogist for assistance with evaluation of mixed incontinen ce.Exam was deferred today due to functional mobility issues.We were able to get a urine which was neg for infection. She is agreeable & appreciati ve of this assistance in her care.Healt h hx reviewed & updated as reported.S he is UTD with routine screenings . Time spent in visit is a total of 30 mins with at least 50% of visit consisting of counseling and review of plan of care. Health Concerns Section Related Observation LastModified by Organization Detai ls LastModified Time None Recorded Concern Status LastModified by Organization Details LastModified Time None Recorded Advance Directives Directive None Recorded Payers Encounter Date Sequence Insurance Name Policy Number Policy Fletcher Covered Member ID Fletcher Member ID Guarantor Name 02/16/2023 1 [facility] ON OR AFTER 04/08/21 (MEDICAID REPLACEMENT - HMO) Noelle Fields [id number] Noelle Fields Notes Date Note Type Note Provider Name and Address Organization Details Recorded Time 02/16/2023 text/html Patient is a 62y o white post-surgical menopause from 1989.She is referred here today for issues with mixed urinary incontinence.She wears depends daily for loss of urine with laugh, cough, sneeze, urge.Denies bladder painDenies frequent UTI'sDenies dysuriaDenies bulge or prolapse She requires assistance with a cane short distances and wheel chair for long distances of ambulation. Neg pain of abd/pelvis/flankNeg GI sx'sNeg N/V/F/C/DNeg Vag d/c, odor, irritation, itching Health Hx reviewed & updated at reported per pt. Ingrid Masters, [facility] [address], [place], [address], [facility] 02/16/2023 12:04:01 OBGyn Episode Ob Episode Information Episode Created Date Number of Fetuses Patient Bloodtype Patient rh Status Prepregnancy Weight lbs Domestic Partner Domestic Partner Phone Father Name Freezer Unloader Status 02/17/20 23 1 CLOSED Fetus Data First Name Last Name Admitted to NICU Weight (g) Sex Living Outcome Pediatric Complications Fetus ID Race Codes Race Delivery Type Full Term Vaginal Delivery Albert Calculation Initial Albert Date Initial Exam Date Initial Exam Provider Initial Ultrasound Date Last Menstrual Period Date Ultra Sound Weeks Gestation 0 Eighteen To Twenty Week Albert Update Ultra Sound Date Fundal Height At Umbil Quickening Date Ultra Sound Latest Weeks Gestation Final Albert Confirmed By Final Albert Confirmed Date Final Albert Date Ultra Sound Latest Days Gestation 0 0 Menstrual History Last Menstrual Date Menses Monthly On Bcp Conception Prior Menses Frequency Hcg Plus Date Menarche Onset Age Delivery Information Delivery Date Delivery Type Labor Anesthesia Weeks Gestation Incision Type Labor Labor Length Hrs Delivered By Post Complications Tubal Sterilization Discharge Date Comments 9 Discharge Information Feeding Method Contraceptive Method Maternal HG B and HCT Levels Ob Episode Information Episode Created Date Number of Fetuses Patient Bloodtype Patient rh Status Prepregnancy Weight lbs Domestic Partner Domestic Partner Phone Father Name Freezer Unloader Status 02/17/20 23 1 CLOSED Fetus Data First Name Last Name Admitted to NICU Weight (g) Sex Living Outcome Pediatric Complications Fetus ID Race Codes Race Delivery Type Full Term Vaginal Delivery Albert Calculation Initial Albert Date Initial Exam Date Initial Exam Provider Initial Ultrasound Date Last Menstrual Period Date Ultra Sound Weeks Gestation 0 Eighteen To Twenty Week Albert Update Ultra Sound Date Fundal Height At Umbil Quickening Date Ultra Sound Latest Weeks Gestation Final Albert Confirmed By Final Albert Confirmed Date Final Albert Date Ultra Sound Latest Days Gestation 0 0 Menstrual History Last Menstrual Date Menses Monthly On Bcp Conception Prior Menses Frequency Hcg Plus Date Menarche Onset Age Delivery Information Delivery Date Delivery Type Labor Anesthesia Weeks Gestation Incision Type Labor Labor Length Hrs Delivered By Post Complications Tubal Sterilization Discharge Date Comments 5 Discharge Information Feeding Method Contraceptive Method Maternal HG B and HCT Levels
--- OUTSIDE RECORDS SUMMARY | 2025-02-17 01:10 | XMS_ITS | Encounter Summary ---
Author Organization [facility] Address [address] [place] [address] Care Team Providers Care Sawyer Cork Slabs Name Role Phone Lesly Martin Primary Care Provider [phone] Dom Serrato MD Unavailable Encounter Details Date Type Department Care Team (Late st Contact Info) Description 03/16/2019 Abstract SFL CONVERSION [address] [place] [address] , Generic Conversion, Social History Tobacco Use Types Packs/Day Years Used Date Smoking Tobacco: Never Assessed Comments Unknown Sex and Gender Information Value Date Recorded Sex Assigned at Female 05/17/2019 10:01 AM CDT Legal Sex Female 5:45 PM SENIOR ADMINISTRATIVE SUPPORT Gender Identity Female 05/17/2019 10:01 AM CDT Sexual Orientation Not on file documented as of this encounter Plan of Treatment Not on file documented as of this encounter Visit Diagnoses Not on filedocumented in this encounter Additional Health Concerns Infection Onset Date Last Indicated Resolved Time COVID-19 Rule Out 10/06/2021 10/06/2021 10/06/2021 1:51 PM SENIOR ADMINISTRATIVE SUPPORT COVID-19 Confirmed 10/06/2021 10/06/2021 12:32 AM SENIOR ADMINISTRATIVE SUPPORT COVID-19 Rule Out 10/06/2022 10/06/2022 10/06/2022 8:03 PM SENIOR ADMINISTRATIVE SUPPORT documented as of this encounter Care Teams Sawyer Cork Slabs Relationship Specialty Start Date End Date Lesly Martin PA [address] [place] [address] PCP - General PHYSICIAN ANTICHECKING IRON WORKER 05/10/19 Dom Serrato MD [address] [place] [address] Vascular/Administrator INTERNAL MEDICINE 05/13/19 documented as of this encounter
--- OUTSIDE RECORDS SUMMARY | 2025-02-17 01:10 | XMS_ITS | Clinical Summary ---
Author Organization [facility] [address] Address [address] [place] [address] Care Team Providers Care Roller Stitcher Name Role Phone Lesly Martin Primary Care Provider [phone] Allergies No known active allergies Medications rivaroxaban [...] Active Active Problems No known active problems Surgical History Surgery Date Site/Laterality Comments HYSTERECTOMY COLON SURGERY CHOLECYSTECTOMY Medical History Medical History Date Comments [place] Asthma Anxiety Depression Sleep apnea Arthritis Family History Medical History Relation Name Comments Bladder Cancer Father Lung cancer Mother Brain Aneurysm Sister Relation Name Status Comments Father (Age 79) Mother (Age 67) Sister (Age 50) Social History Tobacco Use Types Packs/Day Years Used Date Smoking Tobacco: Every Day Cigarettes Smokeless Tobacco: Never Personal Safety Answer Date Recorded Getting School Help Needed Not on file 11/28 Comments Unknown Sex and Gender Information Value Date Recorded Sex Assigned at Not on file Legal Sex Female 2:54 PM TELECOM ANALYST Gender Identity Not on file Sexual Orientation Not on file Obstetrics History Last Filed Vital Signs Vital Sign Reading Time Taken Comments Blood Pressure 140/84 12/13/2021 10:49 AM TELECOM ANALYST Pulse 86 12/13/2021 10:49 AM TELECOM ANALYST Temperature - - Respiratory Rate - - Oxygen Saturation 95% 12/13/2021 10:49 AM TELECOM ANALYST Inhaled Oxygen Concentration - - Weight 124.3 kg (274 lb) 12/13/2021 10:49 AM TELECOM ANALYST Height 170.2 cm (5' 7 ) 12/13/2021 10:49 AM TELECOM ANALYST Body Mass Index 42.91 12/13/2021 10:49 AM TELECOM ANALYST Plan of Treatment Not on file Insurance [facility] Care Teams Roller Stitcher Relationship Specialty Start Date End Date Lesly Martin PA [address] [place] [address] PCP - General Emergency Medicine 12/06/21
--- OUTSIDE RECORDS SUMMARY | 2025-02-17 01:10 | XMS_ITS | Clinical Summary ---
Author Organization [facility] Address [address] [place] [address] Phone Care Team Providers Care Iron Handler Name Role Phone Shyam Costa MD Primary Care Provider [phone] Social History Tobacco Use Types Packs/Day Years Used Date Smoking Tobacco: Never Assessed Comments Unknown Sex and Gender Information Value Date Recorded Sex Assigned at Not on file Legal Sex Female 3:32 PM CDT Gender Identity Not on file Sexual Orientation Not on file Plan of Treatment Health Maintenance Due Date Last Done Comments Hepatitis C Virus (HCV) Screening 1960 TdaP Immunization 1960 Cologuard 2010 Immunochemical Fecal Occult Blood 2010 Pneumococcal Immunization (5 0+ years) (1 of 1 - PCV) 2010 Zoster Immunization (1 of 2) 2010 Influenza Immunization (#1) 2024 SARS-COV-2 Immunization ( season) 2024 Colonoscopy 05/23/2029 05/23/2019 Colorectal Cancer Screening 05/23/2029 Respiratory Syncytial Virus (RSV) Immunization (Adult) (1 - 1-dose 75+ series) 12/21/2035 05/23/2019 Hepatitis B Immunization Aged Out No longer eligible based on patient's age to complete this topic Meningococcal Immunization (ACWY) Aged Out No longer eligible based on patient's age to complete this topic Rotavirus Immunization Aged Out No lo nger eligible based on patient's age to complete this topic Insurance MEDICAID [employer] Care Teams Iron Handler Relationship Specialty Start Date End Date Shyam Costa MD [address] [facility] [facility] [place] [address] PCP - General Pulmonary Disease 08/04/19
--- OUTSIDE RECORDS SUMMARY | 2025-02-17 01:10 | XMS_ITS | Data Portability ---
Author Organization [place] [facility], Main Office Address [address] [place] [address] Care Team Providers Care Fisher Eel Name Role Phone ISAIAS SMITH Primary Care Provider [phone] Assessment No assessment recorded. Plan of Treatment Reminders Order Date Submit Date Provider Last Modified By Organization Details Last Modified Time Details Appointments None recorded. Lab None recorded. Referral None recorded. Procedures None recorded. Surgeries None recorded. Imaging LDCT, chest, for lung cancer screening - Schedule after 06/23/20232022 023 [facility] ([facility]), [address] [place], [address], 17:49:11 Medication Orders None recorded. Patient TargetsNo targets recorded. Patient InstructionsNo instructions recorded. Reason for Referral None Reported. Results Created Date Observation Date Name Description Value Unit Range Abnormal Flag Note LastModifiedBy Organization Detail LastModifiedTime 02/25/20 22 02/19/2022 CPAP compl iance * No observ ation record ed. [id number], [address], 12/07/2022 23:14:51 06/23/20 22 06/23/2022 LDCT, chest , for lung cance r scree teodoro No observ ation record ed. [id number] [facility] Add On Lab Orders [address] [place], [address], 12/07/2022 23:14:51 06/26/20 23 06/26/2023 LDCT, chest , for lung cance r scree teodoro No observ ation record ed. [email or web address] ([facility]) [address] [place], [address], 07/07/2023 19:04:42 Result Notes None recorded. Problems Name Problem SNOMED Code Status Onset Date Resolution Date Notes Provider Name and Address Organization Details Recorded Time Bronchiect asis 63480519 Active 2021 Not Available [facility] 3 11:42:59 Gastroesop hageal reflux disease without esophagiti s 787135635 Active 2021 Not Available [facility] 3 11:42:59 History of SARS-CoV-2 9225163783141 37715 Active 2021 Not Available [facility] 3 11:42:59 Nicotine dependence 20251497 Active 2020 Not Available [facility] 3 11:42:59 Asthma-chr onic obstructiv e pulmonary disease overlap syndrome 0465970261353 9107 Active 2022 Not Available [facility] 3 11:42:59 Notes:Albuterol nebs as need ed since 2019 Albuterol HFA as needed since 2019 Spiriva Handihaler 1 puff daily 5751-1326 Spiriva Respimat 2.5 mcg daily since 2022 Symbicort HFA 160/4.5 mcg 2 puffs BID since 2019 2-D echocardiogram 04/08/21 EF 56%, mild LVH, mild RVE [facility] home sleep study 04/08/21 AHI = 10 [facility] titration sleep study 05/30/21 Greg & Betsy small Varun mask @ 8 cmH2O, PLMI = 31 Andrea PFT 08/12/21 FEV1 1.49 L (54%), BD 380 mL = 34% Chest CT 04/07/[address] 06/23/22 RLL bronchiectasis, BLL mucus plugging, no nodules Chest CT 06/26/23 BLL bronchiectasis, no nodules Medical History: Depression COVID infection Rhinitis to cat and dog IgE 1121 kU/L Obesity with mild OSAHS, AHI = 10, 04/08/21, on CPAP AAT PiMM 173 mg% Nicotine use Mod ACO BLL bronchiectasis Mild RVE Mild LVH EF 56% Elevated BNP LEXI 3.9 cm ascending thoracic aortic ectasia B12 deficiency PLMD Left rib fractures Thoracic DDD Procedure History: Cholecystectomy Problem Notes None recorded. Procedures Surgical History Date Name Laterality Status Provider Name and Address Organization Details Recorded Time cholecystectomy completed Not Available [facility] 12/07/2022 23:07:41 Hysterectomy completed Not Available [facility] 12/07/2022 23:07:41 Imaging Results Imaging Date Name Status LastModified by Organiz ation Details LastModified Time 02/19/2022 CPAP compliance* completed [id number] [facility] [address] [place] [address], [address], 12/07/2022 23:14:51 06/23/2022 LDCT, chest, for lung cancer screening completed [id number] [facility] Add On Lab Orders [address] [place], [address], 12/07/2022 23:14:51 06/26/2023 LDCT, chest, for lung cancer screening completed [email or web address] ([facility]) [address] [place], [address], 07/07/2023 19:04:42 Procedure Notes None recorded. Medical Equipment None Reported. Allergies Allergen ID Allergen Name Allergen Category Reaction Reaction Severity Criticality Documentation Date Start Date Code Code System Note Provider Name and Address Organization Details Recorded Time 15671 furosemid e medicatio n Not available Not available Not available 12/07/2022 4603 RxNorm Not Available [facility] 23:14:27 Medications Name Sig Start Date Stop Date Status Note LastModified by Organization Details LastModified Time cyclobenzap rine 10 mg tablet TAKE 1 TABLET BY MOUTH TWICE DAILY NEEDED FOR MUSCLE SPASM active Not Available Not Available No t Available clindamycin HCl 300 mg capsule TAKE 1 CAPSULE BY MOUTH EVERY 8 HOURS 08/05 completed Not Available Not Available Not Available albuterol sulfate 2.5 mg/3 mL (0.083 %) solution for nebulizatio n Inhale 3 mL 4 times a day by nebulizat ion route as directed for 30 days. 2022 active Not Available Not Available Not Avai lable azithromyci n 250 mg tablet TAKE 2 TABLETS BY MOUTH ON DAY 1, AND THEN TAKE 1 TABLET BY MOUTH ONCE A DAY ON DAY 2 THROUGH DAY 5 01/06 completed Not Available Not Available Not Available benzonatate 200 mg capsule TAKE 1 CAPSULE BY MOUTH THREE TIMES DAILY DIRECTED FOR 10 DAYS 01/06 completed Not Available Not Available Not Available hydrocodone 5 mg-acetamin ophen 325 mg tablet TAKE 1 TO 2 TABLETS BY MOUTH EVERY 6 HOURS NEEDED 12/14 completed Not Available Not Available Not Available prednisone 20 mg tablet TAKE 2 TABLETS BY MOUTH ONCE DAILY FOR 5 DAYS 01/06 completed Not Available Not Available Not Available prednisone 5 mg tablet TAKE 6 TABLETS BY MOUTH EVERY DAY FOR 3 DAYS THEN DECREASE BY 1 TABLET PER DAY UNTIL GONE. TAKE WITH FOOD IN THE MORNING. 12/14 completed Not Available Not Available Not Available ciprofloxac in 500 mg tablet Take 1 tablet every 12 hours by oral route as directed for 10 days. 01/06 completed Not Available Not Available Not Available omeprazole 40 mg capsule,del ayed release Take 1 capsule every day by oral route in the evening for 30 days. active Not Available Not Available No t Available tramadol 50 mg tablet TAKE 1 TABLET BY MOUTH TWICE DAILY NEEDED 12/14 completed Not Available Not Available Not Available amoxicillin 875 mg tablet TAKE 1 TABLET BY MOUTH EVERY 12 HOURS 03/25 completed Not Available Not Available Not Available citalopram 20 mg tablet TAKE 1 TABLET BY MOUTH ONCE DAILY active Not Available Not Available No t Available benzonatate 100 mg capsule 08/31 completed Not Available Not Available Not Available doxycycline monohydrate 100 mg capsule TAKE 1 CAPSULE BY MOUTH TWICE DAILY FOR 10 DAYS 12/30 completed Not Available Not Available Not Available prednisone 50 mg tablet Take 1 tablet every day by oral route as directed for 5 days. 01/06 completed Not Available Not Available Not Available gabapentin 300 mg capsule TAKE 1 TO 2 CAPSULES BY MOUTH THREE TIMES DAILY NEEDED FOR ANXIETY active Not Available Not Available No t Available codeine 10 mg-guaifene sin 100 mg/5 mL oral liquid TAKE 5 ML BY MOUTH EVERY 4 HOURS NEEDED FOR COUGH 12/14 completed Not Available Not Available Not Available levofloxaci n 750 mg tablet Take 1 tablet every day by oral route as directed for 7 days. active Not Available Not Available No t Available methylpredn isolone 4 mg tablets in a dose pack TAKE DIRECTED 12/14 completed Not Available Not Available Not Available albuterol sulfate HFA 90 mcg/actuati on aerosol inhaler Inhale 2 puffs every 4-6 hours by inhalatio n route as needed for 30 days. 2022 active Not Available Not Available Not Avai lable loratadine 10 mg tablet TAKE 1 TABLET BY MOUTH ONCE DAILY active Not Available Not Available No t Available amoxicillin 875 mg-potassiu m clavulanate 125 mg tablet TAKE 1 TABLET BY MOUTH TWICE DAILY FOR 10 DAYS 12/14 completed Not Available Not Available Not Available hydroxyzine pamoate 25 mg capsule TAKE 1 CAPSULE BY MOUTH 4 TIMES DAILY NEEDED active Not Available Not Available No t Available escitalopra m 10 mg tablet TAKE 1 TABLET BY MOUTH ONCE DAILY 12/30 completed Not Available Not Available Not Available Spiriva with HandiHaler 18 mcg and inhalation capsules Inhale 1 capsule every day by inhalatio n route as directed for 30 days. 12/30 completed Not Available Not Available Not Available varenicline tartrate 1 mg tablet TAKE 1 TABLET BY MOUTH TWICE DAILY (TAKE WITH A FULL GLASS OF WATER) active Not Available Not Available No t Available Symbicort 160 mcg-4.5 mcg/actuati on HFA aerosol inhaler Inhale 2 puffs twice a day by inhalatio n route as directed for 30 days. 2022 active Not Available Not Available Not Avai lable Xarelto 10 mg tablet TAKE 1 TABLET BY MOUTH DAILY active Not Available Not Available No t Available Chantix Starting Month Box 0.5 mg (11)-1 mg (42) tablets in dose pack TAKE DIRECTED 12/14 completed Not Available Not Available Not Available Spiriva Respimat 2.5 mcg/actuati on solution for inhalation Inhale 2 puffs every day by inhalatio n route as directed for 30 days. 2022 active Not Available Not Available Not Avai lable Vitals Date Recorded Body mass index (BMI) Body height Oxygen saturation Oxygen saturation in Arterial blood by Pulse oximetry Pain severity - 0-10 verbal numeric rating [Score] - Reported Heart rate Body temperature Body weight Systolic blood pressure Diastolic blood pressure Provider Name and Address Organization Details Last Updated DateTime 2 38.6 kg/m2 170.18 cm 96 % 96 % 9 94 /min 97.6 [degF] 387223. 88 g 128 mm[Hg] 76 mm[Hg] Not Available [facility] 3 23:08:09 Date Recorded Body height Oxygen saturation Oxygen saturation in Arterial blood by Pulse oximetry Heart rate Body temperature Systolic blood pressure Diastolic blood pressure Provider Name and Address Organization Details Last Updated DateTime 2 170.18 cm 92 % 92 % 87 /min 98.4 [degF] 122 mm[Hg] 78 mm[Hg] Not Available [facility] 3 23:08:09 Date Recorded Body height Oxygen saturation Oxygen saturation in Arterial blood by Pulse oximetry Heart rate Systolic blood pressure Diastolic blood pressure Provider Name and Address Organization Details Last Updated DateTime 2 170.18 cm 95 % 95 % 83 /min 140 mm[Hg] 72 mm[Hg] Not Available [facility] 3 23:08:09 Date Recorded Body height Body temperature Heart rate Oxygen saturation Oxygen saturation in Arterial blood by Pulse oximetry Systolic blood pressure Diastolic blood pressure Provider Name and Address Organization Details Last Updated DateTime 3 170.18 cm 97.6 [degF] 84 /min 95 % 95 % 130 mm[Hg] 84 mm[Hg] Paulette Chamberlain RN [facility] 3 13:55:40 Date Recorded Body height Heart rate Oxygen saturation Oxygen saturation in Arterial blood by Pulse oximetry Systolic blood pressure Diastolic blood pressure Provider Name and Address Organization Details Last Updated DateTime 3 170.18 cm 76 /min 94 % 94 % 144 mm[Hg] 70 mm[Hg] Shanna Arthur [facility] 3 11:55:04 Social History Question Answer Notes LastModified by Organizat ion Details LastModified Time Tobacco Smoking Status Current Every Day Smoker 5/6 a day Not Available [facility] 12/07/2022 23:05:59 What Is Your Level Of Caffeine Consumption? Moderate [id number] Information not available 12/07/2022 How Much Tobacco Do You Chew? None [id number] Information not available 12/07/2022 In The 14 Days Before Symptom Onset, Have You Had Close Contact With A Laboratory-confir med COVID-19 While That Case Was Ill? No [id number] Information not available 12/07/2022 In The 14 Days Before Symptom Onset, Have You Had Close Contact With A Person Who Is Under Investigation For COVID-19 While That Person Was Ill? No [id number] 9215 Information not available 12/07/2022 What Type Of Diet Are You Following? REGULAR [id number].[id number] 6688 Information not available 12/07/2022 Which Illicit Or Recreational Drugs Have You Used? None [id number].[id number] 4959 Information not available 12/07/2022 Do You Have An Electrostatic Air Filter? No [id number].[id number] 8088 Information not available 12/07/2022 Do You Have A Humidifier? No MIGRATION.269610 6762 Information not available 12/07/2022 Do You Have Moisture Problems In Your Home? No MIGRATION.250640 6637 Information not available 12/07/2022 What Was The Date Of Your Most Recent Tobacco Screening? 01/25/2022 [id number].[id number] 1417 Information not available 12/07/2022 How Many Children Do You Have? 2 MIGRATION.203327 1536 Information not available 12/07/2022 Do You Have Any Pets? Yes MIGRATION.866179 6306 Information not available 12/07/2022 At What Age Did You Start Smoking Tobacco? 15 MIGRATION.946999 2810 Information not available 12/07/2022 Are You Passively Exposed To Smoke? Yes MIGRATION.742458 7976 Information not available 12/07/2022 How Much Tobacco Do You Smoke? 0.25 PPD MIGRATION.606883 7469 Information not available 12/07/2022 How Many Years Have You Smoked Tobacco? 45 MIGRATION.076490 7578 Information not available 12/07/2022 Have You Recently Traveled Abroad? No MIGRATION.092988 7448 Information not available 12/07/2022 Sex: Unknown Functional Status Question Answer Note LastModified by Organizat ion Details LastModified Time What is your level of alcohol consumption? Occasional [id number].[id number] 026 Information not available 12/07/2022 Do you or have you ever used smokeless tobacco? 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 Former user of electronic cigarettes MIGRATION.[id number] 026 Information not available 12/07/2022 What is your exercise level? None MIGRATION.[id number] 026 Information not available 12/07/2022 Mental Status None recorded. Family History Relationship Description Onset Age of this Age Resolved Age Notes LastModified by Organization Details LastModified Time Father Carcinoma of urinary bladder, superficial [id number] Not available 12/07/2022 23:07:43 Father Hypertensive disorder [id number].137 [id number] Not available 12/07/2022 23:07:44 Mother Malignant neoplasm of lung MIGRATION.900 [id number] Not available 12/07/2022 23:07:44 Mother Hypertensive disorder [id number].937 [id number] Not available 12/07/2022 23:07:44 Maternal Aunt Malignant tumor of breast MIGRATION.949 [id number] Not available 12/07/2022 23:07:44 Paternal Aunt Malignant tumor of breast MIGRATION.929 [id number] Not available 12/07/2022 23:07:44 Maternal Grandmother Hypertensive disorder MIGRATION.[id number] Not available 12/07/2022 23:07:44 Brother Diabetes mellitus MIGRATION.026 [id number] Not available 12/07/2022 23:07:44 Medical History No medical history recorded. Gynecological HistoryNo gynecological history recorded. Obstetrics History GPAL:G 0 P 0 0 0 0 Past Encounters Encounter ID Performer Location Encounter Start Date Encounter Closed Date Diagnosis/Indication Diagnosis SNOMED-CT Code Diagnosis ICD10 Code Diagnosis Note [id number] [facility] [place] [address], [address] [place] [address] 03/25/2021 00:00:00 03/26/2021 00:54:21 [id number] [facility] [place] [address] [facility] [address], [address] [place] [address] 4 05/13/2021 00:00:00 05/13/2021 16:31:20 [id number] [facility] [place] [address] [facility] [address], [address] [place] [address] 4 08/05/2021 00:00:00 08/05/2021 16:56:41 [id number] [facility] [place] [address] [place] [address] 08/31/2021 00:00:00 08/31/2021 16:07:42 [id number] [facility] [place] [address] [place] [address] 12/14/2021 00:00:00 12/14/2021 16:53:11 [id number] MARION Estrada [facility] [place] [address] [place] [address] 01/25/2022 00:00:00 01/25/2022 13:36:47 [id number] [facility] [place] [address] [place] [address] 02/21/2022 00:00:00 02/21/2022 13:18:01 [id number] MARION Estrada [facility] [place] [address], [address] [facility] [place] [address] 07/08/2022 00:00:00 07/08/2022 16:38:11 [id number] MARION Estrada [facility] [place] [address] [facility] [place] [address] 01/06/2023 13:45:40 01/09/2023 08:43:12 Nicotine dependence 27291096 Z87.891 CT chest 06/23/22 with no nodule or mass - repeat due 06/2023Ambrosio goodman cessation counseling and techniques reviewed at length. Literature reviewed.A void triggers, support groups.Dis traction techniques Greater than 3 but less than 10 minutes spent discussing cessation. Declines NRT.Discus sed Rx options if needed in the future. Asthma-chr onic obstructive pulmonary disease overlap syndrome 7205818728 7886135 J44.9 Overlap syndromePF T completed 08/2021, in chartNeed repeat this fallIGE normalRAST with significan t reactions to dogs and cats - she just got a new puppy and will not re-home her animalsCBC normalAlph a 1 normalCont inue Symbicort 160 2 puffs BID.Contin ue rescue albuterol PRNDiscuss ed indication s for useContinu e Spiriva Respimat 2.5Instruc danay on techniqueR ecommend vaccinatio ns this fallDiscus sed reportable signs and symptoms Dyspnea on exertion 6084 5006 R06.09 Multifacto ralWeight lossSmokin g cessation Obstructiv e sleep apnea syndrome 13440456 G47.33 Positive home study 04/08/21 with AHI 10.3Machin e set up 07/23/21Do wnload today with 67% use greater than 4 hours.AHI is 0.4 on CPAP 8 cm H2OShe has good use and benefit.Do wnload in 3-6 months, PRN for concerns [id number] Shannon Garcia, [facility] [place] [address] [place] [address] 07/10/2023 11:40:35 07/10/2023 15:08:31 Asthma-chronic obstructive pulmonary disease overlap syndrome 6775319147 5661477 J44.9 Overlap syndromePF T completed 08/2021, in chartRatio 48%34% improvemen t in FEV1 after BDNeed repeat this fallIGE normalRAST with significan t reactions to dogs and cats - she will not re-home her animals - advised allergy pill dailyCBC normalAlph a 1 normalCont inue Symbicort 160 2 puffs BID.Contin ue rescue albuterol PRNDiscuss ed indication s for useContinu e Spiriva Respimat 2.5Instruc danay on techniqueR ecommend vaccinatio ns this fallDiscus sed reportable signs and symptoms Dyspnea on exertion 6084 5006 R06.09 Multifacto ralWeight lossSmokin g cessation Obstructiv e sleep apnea syndrome 76578699 G47.33 Positive home study 04/08/21 with AHI 10.3Machin e set up 07/23/21La st download with 67% use greater than 4 hours.AHI is 0.4 on CPAP 8 cm H2OShe has good use and benefit. Nicotine dependence [address] chest 06/23/22 with no nodule or massSmokin g cessation counseling and techniques reviewed at length. Literature reviewed.A void triggers, support groups.Dis traction techniques Greater than 3 but less than 10 minutes spent discussing cessation. Declines NRT.Discus sed Rx options if needed in the future.Rep eat CT 06/2023 with no nodule, mass, or enlarged lymph nodesRepea t 06/2024 Health Concerns Section Related Observation LastModified by Organization Detai ls LastModified Time None Recorded Concern Status LastModified by Organization Details LastModified Time None Recorded Advance Directives Directive None Recorded Payers Encounter Date Sequence Insurance Name Policy Number Policy Fletcher Covered Member ID Fletcher Member ID Guarantor Name 01/06/2023 1 [facility] ON OR AFTER 04/08/21 (MEDICAID REPLACEMENT - HMO) Noelle Diamond [id number] Noelle Fernandomichell 07/10/2023 1 [facility] ON OR AFTER 04/08/21 (MEDICAID REPLACEMENT - HMO) Noelle Fields [id number] Noelle Fields Notes Date Note Type Note Provider Name and Address Organization Details Recorded Time 3 text/html Ms Fields presents today to follow up on asthma, dyspnea, cough, history of SARS-CoV-2, GERDShe has not had any breathing concerns or respiratory infections in the last 6 months.Her nebulizer is broken and she has borrowed a friends but it does not work very wellAdmits to partial compliance with PAP at night, sleep has been fairly restfulContinues to smoke about 8 cigarettes per day.Her cough is intermittentCompliant with omeprazole.Rescue MDI use is intermittent, she prefers the nebulizerDyspnea is moderate, she continues to use a wheelchair for most activity outside the houseHad a fall in August with wound to left ankle that resulted in wound care and multiple antibioticsActivity is limited by this and she is unable to accurately assess toleranceReports her worst cough remains at night and in the morning when she wakes.Compliant with Symbicort and SpirivaWheezing is intermittent Shannon Garcia, [facility] [address] [facility], [address], [place], [address], [employer] 01/06/2023 15:46:16 3 text/html Ms Fields presents today to follow up on asthma, dyspnea, cough, history of SARS-CoV-2, GERDShe has not had any breathing concerns or respiratory infections in the last 9 months.COntinues to have dogs in the house, reports that one sits with her all the time She is not on an allergy pill daily.Admits to partial compliance with PAP at night, sleep has been fairly restfulContinues to smokeHer cough is intermittent, worse with exposures, but no significant infectionsCompliant with omeprazole.Rescue MDI use is intermittent, she prefers the nebulizerDyspnea is moderate, she continues to use a wheelchair for most activity outside the houseAlso uses a scooter in the stores.Reports her worst cough remains at night and in the morning when she wakes.Compliant with Symbicort and SpirivaThese remain affordableWheezing is intermittent Shannon Garcia, [facility] [address] [facility], [facility] [address], [place], [address], [employer] 07/10/2023 22:01:59 OBGyn Episode No OBEpisode recorded.
--- OUTSIDE RECORDS SUMMARY | 2025-02-17 01:10 | XMS_ITS | Clinical Summary ---
Author Organization [facility] Address [facility] [place] [address] Care Team Providers Care [employer] Name Role Phone Lesly Martin Primary Care Provider [phone] Dom Serrato MD Unavailable Allergies Active Allergy Reactions Criticality Noted Date Comments Hydrochlorothiazide Other (see comment) 019 Severe indigestion Medications cyclobenzaprine 10 MG tablet Take 1 tablet by mouth 2 (two) times daily as needed. 0 9 Active PROAIR HFA 108 (90 Base) MCG/ACT inhaler INHALE 2 PUFFS BY MOUTH EVERY 4 TO 6 HOURS NEEDED 0 9 Active XARELTO 10 MG Tab tablet Take 10 mg by mouth daily. 11 9 Active albuterol (2.5 MG/3ML) 0.083% nebulizer solution Take 2.5 mg by nebulization every 6 (six) hours as needed for Wheezing. Active hydrOXYzine (ATARAX) 25 MG tablet Take 25 mg by mouth 4 (four) times daily as needed for Itching. Active Loratadine 10 MG Cap Take 10 mg by mouth nightly as needed. Active SYMBICORT 160-4.5 MCG/ACT inhaler 2 Active gabapentin (NEURONTIN) 300 MG capsule TAKE 1 TO 2 CAPSULES BY MOUTH THREE TIMES DAILY NEEDED FOR ANXIETY 2 Active SPIRIVA HANDIHALER 18 MCG inhalation capsule 2 Active Active Problems Problem Noted Date Diagnosed Date Colicky right upper quadrant pain 10/08/2022 Left nephrolithiasis 10/07/2022 COPD exacerbation (CMS/HCC HHS/HCC) 10/06/2022 Encounter for screening colonoscopy 05/22/2019 Overview (05/22/2019): Added automatically from request for surgery [id number] Body mass index 40.0-44.9, adult 05/17/2019 Toe cyanosis 05/14/2019 Bilateral lower extremity edema 05/14/2019 DVT of deep femoral vein, left ([facility]) 05/14/2019 Mixed hyperlipidemia 05/14/2019 Current smoker 05/14/2019 Secondary hypertension 05/14/2019 Low back pain 05/14/2019 Chronic venous insufficiency 05/14/2019 History of DVT (deep vein thrombosis) 05/14/2019 Varicose veins of lower extr emities with complications, bilateral 05/14/2019 Wheezing 07/02/2014 Ganglion cyst 02/04/2014 Dyslipidemia 08/01/2013 Gastroesophageal reflux disease 08/01/2013 Hematochezia 08/01/2013 Hyperglycemia 08/01/2013 Abdominal pain 08/01/2013 Anxiety 07/17/2011 Asthma ([facility]) 07/17/2011 Hip pain 07/17/2011 History of CVA (cerebrovascular accident) Overview (05/17/2019): 1994 Family History Medical History Relation Comments Bronchitis Father chronic Cancer Father bladder cancer Breast Cancer Maternal Aunt Lung Cancer Mother Breast Cancer Paternal Aunt Relation Status Comments Father Maternal Aunt Maternal Grandfather Maternal Grandmother Mother Paternal Aunt Paternal Grandfather Paternal Grandmother Social History Tobacco Use Types Packs/Day Years Used Date Smoking Tobacco: Light Smoker Cigarettes Smokeless Tobacco: Never Alcohol Use Standard Drinks/Week Comments No 0 (1 standard drink = 0.6 oz pur e alcohol) Humiliation, Afraid, Rape, and Kick questionnair e Answer Date Recorded Within the last year, have y ou been afraid of your partner or ex-partner? No 10/07/2022 Within the last year, have y ou been humiliated or emotionally abused in other ways by your partner or ex-partner? No Within the last year, have y ou been kicked, hit, slapped, or otherwise physically hurt by your partner or ex-partner? No 10/07/2022 Within the last year, have y ou been raped or forced to have any kind of sexual activity by your partner or ex-partner? No 10/07/2022 AUDIT-C Answer Date Recorded Frequency of Alcohol Consumption Never 05/14/2019 Average Number of Drinks Not on file 019 Frequency of Binge Drinking Not on file 03/2019 Overall Financial Resource Strain (CARDIA) Answe r Date Recorded How hard is it for you to pa y for the very basics like food, housing, medical care, and heating? Not hard at all 10/07/2022 Hunger Vital Sign Answer Date Recorded Within the past 12 months, y ou worried that your food would run out before you got the money to buy more. Never true 10/07/20 22 Within the past 12 months, t he food you bought just didn't last and you didn't have money to get more. Never true 10/07/2022 PRAPARE - Transportation Answer Date Re corded In the past 12 months, has l ack of transportation kept you from medical appointments or from getting medications? No 09/10 In the past 12 months, has l ack of transportation kept you from meetings, work, or from getting things needed for daily living? No 10/07/2022 Housing Stability Vital Sign Answer Marnio e Recorded In the last 12 months, was t here a time when you were not able to pay the mortgage or rent on time? No 10/07/2022 In the last 12 months, how many places have you lived? 1 10/07/2022 In the last 12 months, was t here a time when you did not have a steady place to sleep or slept in a intermediate (including now)? No 10/07/2022 Comments No Sex and Gender Information Value Date Recorded Sex Assigned at Female 05/17/2019 10:01 AM CDT Legal Sex Female 5:45 PM CASE INVESTIGATOR Gender Identity Female 05/17/2019 10:01 AM CDT Sexual Orientation Not on file Occupation Industry Job Start Date Job End Date Not on file Not on file Not on file Not on file Last Filed Vital Signs Vital Sign Reading Time Taken Comments Blood Pressure 130/61 10/08/2022 4:55 AM CASE INVESTIGATOR Pulse 84 10/08/2022 4:55 AM CASE INVESTIGATOR Temperature 35.8 C (96.4 F) 10/08/2022 4:55 AM CASE INVESTIGATOR Respiratory Rate 18 10/08/2022 4:55 AM CASE INVESTIGATOR Oxygen Saturation 93% 10/08/2022 11:14 AM CASE INVESTIGATOR Inhaled Oxygen Concentration - - Weight 99.1 kg (218 lb 6.4 oz) 10/06/2022 10:36 PM CASE INVESTIGATOR Height 167.6 cm (5' 6 ) 10/06/2022 4:23 PM CASE INVESTIGATOR Body Mass Index 35.25 10/06/2022 4:23 PM CASE INVESTIGATOR Plan of Treatment Health Maintenance Due Date Last Done Comments Annual Physical 12/21/1963 Hepatitis C 1978 Pneumococcal Vaccine: 50+ Years (1 of 2 - PCV) 12/21/1979 Zoster Vaccines (1 of 2) 2010 RSV Immunization or 60+ Years (1 - Risk 60-74 years 1-dose series) 2020 Mammogram Screening 07/23/2022 07/23/2020, 05/14/2019 COVID-19 Vaccine (1 - 2023-2 5 season) 2024 Colorectal Cancer Screening Colonoscopy (10 Years) 05/23/2029 05/23/2019 DTaP, Tdap and Td Vaccines ( 2 - Td or Tdap) 05/23/2032 05/23/2022 Meningococcal B Vaccine Aged Out No l onger eligible based on patient's age to complete this topic Meningococcal Vaccine Aged Out No delfina tito eligible based on patient's age to complete this topic RSV Immunizations Under 20 Months Aged Out No longer eligible b ased on patient's age to complete this topic Procedures Procedure Name Priority Date/Time Associated Diagnosis Comments MG SCREENING W FLORENCIO ASHLYN DIGI Routine 07/23/2020 2:17 PM CDT Visit for screening mammogram COLONOSCOPY 05/23/2019 9:44 AM CDT from Last 3 Months or Most Recently Relevant to Health Maintenance Results * MG SCREENING W FLORENCIO ASHLYN DIGI (07/23/2020 2:17 PM CDT) Anatomical Region Laterality Modality Breast Bilateral Mammography 07/24/2020 12:1 9 PM CDT Impressions 07/24/2020 12:21 PM CDT IMPRESSION: No suspicious mammographic findings. Recommendation: 1. Routine Screening, BILATERAL Assessment: ACR BI-RADS 1 - NEGATIVE Interpreted By: Chaim White MD, 07/24/2020 12:19 PM Narrative 07/24/2020 12:21 PM CDT Examination: Screening bilateral mammogram Clinical history: Routine screening. No complaints. Comparison: 05/14/2019, 02/14/2017, 01/20/2016 Technique: Digital screening mammography of both breasts was performed. Breast tomosynthesis acquisitions were obtained and reviewed. This study was read with the assistance of a computer-aided detection system. Tissue density: There are scattered areas of fibroglandular density. Findings: No suspicious masses, malignant appearing calcifications, skin thickening or other abnormalities are present. No significant change from the prior exam. us Lesly ESCAMILLA MAMMO Final Result * COLONOSCOPY (05/23/2019 9:44 AM CDT) us Margarito Del Rosario MD GI PROCEDURE ORDERA BLES Final Result from Last 3 Months or Most Recently Relevant to Health Maintenance Insurance [facility] Advance Directives * Full Code (Latest Code Status on File) Date Activated Date Inactivated Comments 10/06/2022 11:37 PM 10/08/2022 2:01 PM Care Teams [employer] Relationship Specialty Start Date End Date Lesly Martin PA [address] [place] [address] PCP - General PHYSICIAN VACUUM TESTER CANS 05/10/19 Dom Serrato MD [address] [address] Vascular/Channel Marketing Program Manager INTERNAL MEDICINE 05/13/19
--- NOTE | 2025-02-17 01:13 | ECG_ITS ---
Test Date: 2025-02-17 01:15:23 Measurements Intervals [place] Rate: 100 P: 90 RI: 155 QRS: -9 QRSD: 150 T: 110 QT: 401 QTc: 518 Interpretive Statements SINUS TACHYCARDIA LEFT BUNDLE BRANCH BLOCK [120+ ms QRS DURATION, 80+ ms Q/S IN V1/V2, 85+ ms R IN I/aVL/V5/V6] Compared to ECG 10/19/2024 12:16:23 Sinus rhythm no longer present Electronically Signed On 02-18-2025 13:57:31 CDT by Geraldo Frazier M.D.
--- NOTE | 2025-02-17 01:16 | ED_ITS ---
HPI - SOB/Dyspnea General Chief Complaint: Shortness of Breath/Dyspnea Stated Complaint: SOB Time Seen by Provider: 02/17/25 01:12 Source: patient and EMS Mode of arrival: EMS Limitations: no limitations History of Present Illness HPI Narrative: patient is a 64-year-old female with COPD here with shortness of breath and difficulty breathing for the past few hours. She called EMS and they put her on CPAP and was brought to the emergency room. No chest pain. She is on 2 L nasal cannula oxygen continuously at home. she has associated 5 days of abdominal lower pain and diarrhea. EMS gave her Solu-Medrol 125 mg IV. MD elicited complaint: shortness of breath Pertinent past history: COPD Onset (ago): hour(s) ( Three) Context: other ( patient having worsening shortness of breath over the past 3 hours and called EMS. She did albuterol treatment at home.) Timing: constant Severity: severe Exacerbating factors: exertion, inspiration and deep breaths Relieving factors: nothing Known history of: COPD, diabetes, DVT ( Xarelto) and other ( Hypertension) Associated symptoms: other ( Abdominal pain for 5 days with diarrhea) Treatment prior to arrival: oxygen, bronchodilator and NIPPV Related Data Home oxygen amount: 2 liters Home Medications ?Medication ?Instructions ?Recorded ?Confirmed ?Last Taken ?Type albuterol sulfate 2.5 mg/3 mL 2.5 mg inhalation Q4-6H PRN 10/19/24 10/19/24 Unknown History (0.083 %) solution for nebulization shortness of breath or wheezing albuterol sulfate 90 mcg/actuation 2 inh inhalation Q6H PRN 10/19/24 10/19/24 Unknown History aerosol inhaler bronchospasm escitalopram oxalate 10 mg tablet 10 mg PO DAILY 10/19/24 10/19/24 Unknown History losartan 50 mg tablet 50 mg PO DAILY 10/19/24 10/19/24 Unknown History metformin 500 mg tablet,extended 500 mg PO BID 10/19/24 10/19/24 Unknown History release 24 hr tiotropium bromide 2.5 2 inh inhalation DAILY 10/19/24 10/19/24 10/18/24 History mcg/actuation mist for inhalation (Spiriva Respimat) Allergies Allergy/AdvReac Type Severity Reaction Status Date / Time No Known Allergies Allergy Verified 02/17/25 01:25 Review of Systems 2 Review of Systems: All systems reviewed & are unremarkable except as noted in HPI and below Constitutional: Constitutional: Reports no additional constitutional complaints Eyes: Eyes: Reports no additional eye complaints ENT: Reports system reviewed and no additional complaints, except as documented Cardiovascular: Cardiovascular: Reports no additional cardiovascular complaints Respiratory: Respiratory: Reports no additional respiratory complaints Gastrointestinal: Gastrointestinal: Reports no additional gastrointestinal complaints Genitourinary: Genitourinary: Reports no additional female genitourinary complaints Musculoskeletal: Musculoskeletal: Reports no additional musculoskeletal complaints Integumentary/Breasts: Skin/Breast: Reports system reviewed and no additional complaints, except as docu Neurologic: Reports system reviewed and no additional complaints, except as documented Psychiatric: Psychiatric: Reports no additional psychiatric complaints Endocrine: Endocrine: Reports no additional endocrine complaints Hematologic/Lymphatic: Hematologic/Lymphatic: Reports no additional hematologic/lymphatic complaints Allergic/Immunologic: Allergic/Immunologic: Reports no additional allergic/immunologic complaints PMFSH Past Medical History Medical History (Updated 02/17/25 @ 05:08 by Stuart Brown MD) Tobacco abuse Type 2 diabetes mellitus DVT (deep vein thrombosis) in Emphysema (subcutaneous) (surgical) resulting from a procedure Hypertension COPD (chronic obstructive pulmonary disease) Social History Social History Social History: currently retired. She lives with her . she currently has no insurance and does not qualify for Medicaid. She is currently 63 years old. Smoking packs per day: 1 Smoking cigarettes per day: 20.0 Years smoked: 46 Smoking pack-years: 46.00 Smoking status: Current every day smoker Tobacco type: cigarettes Second hand tobacco smoke exposure: No Alcohol intake: never Substance use: never Substance use type: does not use Do You Feel Safe in your Home?: Yes Lack of Transportation: No Lack of Food: Never True Current Housing: I Have Housing Concerned About Future Housing: No Difficulty Paying Gas/Electric Bills: YES Difficulty Paying for Meds: YES Currently Unemployed: No Education: High School Diploma/GED Difficulty w/ Childcare or Family Care: No Spiritual care concerns: No Exam 2 Const: General: alert and ill appearing Nutritional Appearance: well nourished Orientation/consciousness: patient oriented x3 Limitations: o ther limitations ( clinical condition and CPAP) HENMT: Head: normal to inspection Ears: external ears normal F krista/Nose/Sinus: Normal external nose present Eyes: Conjunctivae: conjunctivae normal Pupils: Equal, round and reactive pupils present EOM: EOMs intact bilaterally Neck: Neck: normal visual inspection Chest: Chest palpation & inspection: normal inspection of the chest Resp: Effort & Inspection: abnormal respiratory effort, labored, no retractions, tachypneic and no use of accessory muscles Auscultation: not clear to auscultation bilaterally, no crackles, no rales, rhonchi, wheezes, breath sounds present and diminished lung sounds Cardio: Rate: regular rate Rhythm: regular rhythm Heart sounds: no murmurs GI: Inspection: non-distended GI Palp: Yes Soft to palpation and No Tenderness to palpation present (GI) Auscultation: normal bowel sounds : General: Yes bladder normal to palpation Back/Spine/Pelvis: Back: no CVA tenderness Skin: General skin exam: normal color Rashes: no rashes Wounds: no wounds Neuro: General: patient oriented x3 Cranial nerves: Yes Nystagmus not present Speech: normal speech Extrem: General: normal to inspection and edema ( bilateral 1+) Psych: Mental Status: mental status grossly normal Affect: normal affect Attitude: cooperative Course Vital Signs Vital signs: Vital Signs Pulse Rate 99 02/17/25 01:06 Respiratory Rate 33 H 02/17/25 01:06 Blood Pressure 161/96 H 02/17/25 01:06 Pulse Oximetry 100 02/17/25 01:06 Oxygen Delivery CPAP 02/17/25 01:06 Temperature 36.2 C L 02/17/25 01:08 Pulse Rate 93 02/17/25 04:00 Respiratory Rate 22 H 02/17/25 04:00 Blood Pressure 149/91 H 02/17/25 04:00 Pulse Oximetry 96 02/17/25 04:00 Oxygen Delivery Nasal Cannula 02/17/25 04:00 Oxygen Flow Rate 2 02/17/25 04:00 MDM - SOB/Dyspnea MDM Narrative Medical decision making narrative: patient is a 64-year-old female with respiratory distress and dyspnea here for treatment from EMS. abdomen pain and diarrhea. Patient will have Pulmonary cardio workup at this time with abdomen evaluation. Supportive respiratory care. Sepsis workup. Patient further reports at the end of the encounter that her diarrhea has been up to 30 days. Further workup with the primary doctor as an outpatient. Lab Data Attestation: I reviewed the patient's lab results. 02/17/25 01:49 02/17/25 01:49 Labs: Lab Results 02/17/25 02/17/25 Range/Units 01:12 01:49 WBC 11.4 H (4.8-10.8) K/mm3 RBC 4.56 (4.20-5.40) M/mm3 Hgb 13.0 (12.0-15.0) g/dL Hct 43.6 (35.0-49.0) % MCV 95.6 (78.0-102.0) fL MCH 28.5 (27.0-31.0) pg MCHC 29.8 L (32-36) g/dL RDW 13.8 (11.6-14.4) % Plt Count 172 (150-420) K/mm3 MPV 12.4 H (9.2-11.8) fl Immature Gran % (Auto) 0.6 H (0.0-0.0) % Neut % (Auto) 52.7 (50.0-70.0) % Lymph % (Auto) 36.0 (18.0-42.0) % [place] % (Auto) 5.1 (2.0-11.0) % Eos % (Auto) 4.8 (1.0-6.0) % Baso % (Auto) 0.8 (0.0-1.0) % Lymph # (Auto) 4.10 (1.10-4.50) K/mm3 [place] # (Auto) 0.58 (0.10-0.90) K/mm3 Eos # (Auto) 0.55 H (0.02-0.50) K/mm3 Baso # (Auto) 0.09 (0.00-0.10) K/mm3 Abs Immat Gran (auto) 0.07 H (0.00-0.00) K/mm3 Absolute Neuts (auto) 6.01 (1.70-7.20) K/mm3 Absolute Nucleated RBC 0.00 (0.00-0.00) K/mm3 Nucleated RBC % 0.0 (0-0.0) % Sodium 142 (136-145) mmol/L Potassium 3.6 (3.5-5.1) mmol/L Chloride 105 (98-108) mmol/L Carbon Dioxide 27 (21-32) mmol/L Anion Gap 10 (4-12) mmol/L BUN 18 (7-18) mg/dL Creatinine 0.94 (0.55-1.02) mg/dL Estim Creat Clear Calc Not Reportable Estimated GFR 60 (59 - ) Glucose 272 H (70-99) mg/dL POC Capillary Glucose 240 H (65-105) mg/dl Calculated Osmolality 305 H (285-295) mOsm/kg Lactic Acid 1.8 (0.4-2.0) mmol/L Calcium 8.9 (8.5-10.1) mg/dL Total Bilirubin 0.5 (0.00-1.00) mg/dL AST 49 H (15-37) U/L ALT 61 H (14-59) U/L Alkaline Phosphatase 81 (46-116) U/L Troponin I 57.2 (0.00-60.4) ng/L NT-Pro-B Natriuret Pep 243 H (0-125) pg/mL Total Protein 7.0 (6.4-8.2) g/dL Albumin 3.5 (3.4-5.0) g/dL Influenza A (RT-PCR) Negative (Negative) Influenza B (RT-PCR) Negative (Negative) RSV (RT-PCR) Negative (Negative) SARS-CoV-2 RNA (RT-PCR) Negative (Negative) Imaging Data Attestation: I personally reviewed and interpreted this imaging study as follows: My impression: Chest x-ray read by me and pending final report shows prominent pulmonary markings with possible pulmonary edema and air bronchograms with congestion Radiologist's impression: CT abdomen and pelvis were negative for acute process ECG Data EKG #1: Attestation: I personally reviewed and interpreted this ECG as follows: ECG completion date: 02/17/25 ECG completion time: 01:22 Interpretation: History of LBBB EKG Interpretation: tachycardia, sinus rhythm, no ectopy, non-specific ST changes, widened QRS, LBBB, normal QT and left axis Discharge Plan Discharge Clinical Impression: Acute exacerbation of chronic obstructive pulmonary disease, Enteritis Patient Disposition: Home Condition: Stable Instructions: COPD (Chronic Obstructive Pulmonary Disease) (DC), Enteritis (ED) Additional Instructions: please follow-up with primary doctor in the next week. Please have your primary doctor do stool studies and further workup on the diarrhea. Patient Language: Kyrgyz Prescriptions: New prednisone 20 mg tablet 40 mg PO DAILY 4 Days Qty: 8 0RF azithromycin 250 mg tablet See Rx Instructions .ROUTE .COMPLEX Qty: 6 0RF Rx Instructions: For 250 mg dose pack: take 500 mg today (day 1), then 250 mg for 4 days (days 2-5) No Action losartan 50 mg tablet 50 mg PO DAILY albuterol sulfate 2.5 mg /3 mL (0.083 %) solution for nebulization 2.5 mg inhalation Q4-6H PRN (Reason: shortness of breath or wheezing) albuterol sulfate 90 mcg/actuation HFA aerosol inhaler 2 inh INHALATION Q6H PRN (Reason: bronchospasm) metformin 500 mg tablet extended release 24 hr 500 mg PO BID escitalopram oxalate 10 mg tablet 10 mg PO DAILY Spiriva Respimat 2.5 mcg/actuation mist 2 inh inhalation DAILY azithromycin [Zithromax] 250 mg Tablet 500 mg PO DAILY Qty: 1 0RF methylprednisolone 4 mg tablets,dose pack See Rx Instructions .ROUTE .COMPLEX Qty: 21 0RF Rx Instructions: for 6 days benzonatate 200 mg capsule 200 mg PO TID PRN (Reason: cough) Qty: 60 0RF Xarelto 10 mg tablet 10 mg PO DAILY Qty: 90 0RF Rx Instructions: for 35 days Follow-up/Referrals: UNKNOWN,DOCTOR [Non-Staff] - Time of Disposition: 05:08
[2025-02-17 01:17] LABS: Glucose Point of Care 240 mg/dl (65-105)
[2025-02-17] MEDS: IPRATROPIUM 0.5 MG/ALBUTEROL SULFATE 2.5 MG AMPUL.NEB 3 ML INHALATION ×2 (01:20→01:30)
[2025-02-17 01:58] LABS: Basophils Absolute Auto 0.09 K/mm3 (0.00-0.10); Basophils Percent Auto 0.8 % (0.0-1.0); Eosinophils Absolute Auto 0.55 K/mm3 (0.02-0.50); Eosinophils Percent Auto 4.8 % (1.0-6.0); Hematocrit 43.6 % (35.0-49.0); Immature Granulocyte Absolute 0.07 K/mm3 (0.00-0.00); Immature Granulocyte Percent A 0.6 % (0.0-0.0); Mean Corpuscular HGB Conc 29.8 g/dL (32-36); Mean Corpuscular Hemoglobin 28.5 pg (27.0-31.0); Mean Corpuscular Volume 95.6 fL (78.0-102.0); Mean Platelet Volume 12.4 fl (9.2-11.8); Monocytes Absolute Auto 0.58 K/mm3 (0.10-0.90); Monocytes Percent Auto 5.1 % (2.0-11.0); Neutrophils Absolute Auto 6.01 K/mm3 (1.70-7.20); Neutrophils Percent Auto 52.7 % (50.0-70.0); Platelet Count Result 172 K/mm3 (150-420); Red Blood Count 4.56 M/mm3 (4.20-5.40); Red Cell Distribution Width 13.8 % (11.6-14.4); White Blood Count 11.4 K/mm3 (4.8-10.8)
[2025-02-17 02:20] LABS: Lactic Acid Reflex 1.8 mmol/L (0.4-2.0)
[2025-02-17 02:21] LABS: Alanine Aminotransferase 61 U/L (14-59); Albumin Level 3.5 g/dL (3.4-5.0); Alkaline Phosphatase 81 U/L (46-116); Anion Gap 10 mmol/L (4-12); Aspartate Amino Transferase 49 U/L (15-37); Bilirubin,Total 0.5 mg/dL (0.00-1.00); Blood Urea Nitrogen 18 mg/dL (7-18); Calcium 8.9 mg/dL (8.5-10.1); Carbon Dioxide 27 mmol/L (21-32); Chloride 105 mmol/L (98-108); Estimated Glomerular Filt Rate 60; Glucose 272 mg/dL (70-99); NT Pro B Type Natriuretic Pept 243 pg/mL (0-125); Osmolality Calculated 305 mOsm/kg (285-295); Potassium 3.6 mmol/L (3.5-5.1); Sodium 142 mmol/L (136-145); Troponin I 57.2 ng/L (0.00-60.4)
[2025-02-17 02:55] LABS: Influenza A QL RT-PCR Negative (Negative); Influenza B QL RT-PCR Negative (Negative); RSV RNA, RT-PCR Negative (Negative); SARS-CoV-2 RNA PCR Negative (Negative)
== END 2025-02-17 05:53 | disposition home or self-care (01) ==
PROVIDERS: Emergency Provider Emergency Medicine; PCP Internal Medicine
DX: J44.1 Chronic obstructive pulmonary disease with (acute) exacerbation (principal); K52.9 Noninfective gastroenteritis and colitis, unspecified; E11.9 Type 2 diabetes mellitus without complications; I10 Essential (primary) hypertension; Z99.81 Dependence on supplemental oxygen; Z79.01 Long term (current) use of anticoagulants; Z86.718 Personal history of other venous thrombosis and embolism; Z20.822 Contact with and (suspected) exposure to COVID-19
CPT/HCPCS: 36415; 71045; 74176; 80053; 82948; 83605; 83880; 84484; 85025; 87040; 87637; 93005; 94640; 99284

== ENCOUNTER 2025-05-29 01:22 | Emergency (ER) | payer MEDICAID, SELFPAY ==
[2025-05-29] VITALS (18 sets, daily range): BP systolic 115–177; BP diastolic 76–104; PULSE 74–92; RESP 16–26; TEMP 36.1; O2SAT 96–100
--- NOTE | ~2025-05-29 | XR_ITS ---
Portable chest x-ray Comparison: 02/17/2025 Clinical History: Shortness of breath Findings: Lungs are clear, without focal consolidation or pleural effusion. Possible COPD. Cardiomediastinal silhouette is stable. Bones and soft tissues are unremarkable. Impression: Clear lungs. Possible COPD. Reviewed, dictated and finalized at location . Impression: Clear lungs. Possible COPD.
--- OUTSIDE RECORDS SUMMARY | 2025-05-29 01:25 | XMS_ITS | Encounter Summary ---
Author Organization [facility] Address [address] [place] [id number] Care Team Providers Care Billet Heater Name Role Phone Lesly Martin Primary Care Provider [phone] Dom Serrato MD Unavailable Encounter Details Date Type Department Care Team (Late st Contact Info) Description 03/16/2019 Abstract SFL CONVERSION [address] [place] [address] , Generic Conversion, Social History Tobacco Use Types Packs/Day Years Used Date Smoking Tobacco: Never Assessed Comments Unknown Sex and Gender Information Value Date Recorded Sex Assigned at Female 05/17/2019 10:01 AM CDT Legal Sex Female 5:45 PM FINAL OPERATIONS TECHNICIAN Gender Identity Female 05/17/2019 10:01 AM CDT Sexual Orientation Not on file documented as of this encounter Plan of Treatment Not on file documented as of this encounter Visit Diagnoses Not on filedocumented in this encounter Additional Health Concerns Infection Onset Date Last Indicated Resolved Time COVID-19 Rule Out 10/06/2021 10/06/2021 10/06/2021 1:51 PM FINAL OPERATIONS TECHNICIAN COVID-19 Confirmed 10/06/2021 10/06/2021 12:32 AM FINAL OPERATIONS TECHNICIAN COVID-19 Rule Out 10/06/2022 10/06/2022 10/06/2022 8:03 PM FINAL OPERATIONS TECHNICIAN documented as of this encounter Care Teams Billet Heater Relationship Specialty Start Date End Date Lesly Martin PA [address] [place] [address] PCP - General PHYSICIAN PRICE CHECKER 05/10/19 Dom Serrato MD [address] [place] [address] Vascular/Wireless Sales Expert INTERNAL MEDICINE 05/13/19 documented as of this encounter
--- OUTSIDE RECORDS SUMMARY | 2025-05-29 01:25 | XMS_ITS | Encounter Summary ---
Author Organization 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 Gender Identity Female 05/17/2019 10:01 AM CDT [...] Rule Out 10/06/2021 10/06/2021 10/06/2021 1:51 PM 2 YEAR OLDS PRESCHOOL TEACHER COVID-19 Confirmed 10/06/2021 10/06/2021 12:32 AM 2 YEAR OLDS PRESCHOOL TEACHER COVID-19 Rule Out 10/06/2022 10/06/2022 10/06/2022 8:03 PM 2 YEAR OLDS PRESCHOOL TEACHER documented as of this encounter Care Teams Brazing Machine Operator Automatic Relationship Specialty Start Date End Date Lesly Martin PA [address] [address] PCP - General PHYSICIAN MOLYBDENUM STEAMER OPERATOR 05/10/19 Dom Serrato MD [address] [address] Vascular/Producer Assistant INTERNAL MEDICINE 05/13/19 documented as of this encounter
--- OUTSIDE RECORDS SUMMARY | 2025-05-29 01:25 | XMS_ITS | Clinical Summary ---
Author Organization [facility] Address [address] [place] [address] Care Team Providers Care Scientific Programmer Analyst Name Role Phone Lesly Martin Primary Care Provider [phone] Dom Serrato MD Unavailable Allergies Active Allergy [...] (05/22/2019): Added automatically from request for surgery [id number] Body mass index 40.0-44.9, adult 05/17/2019 Toe cyanosis 05/14/2019 Bilateral lower extremity edema 05/14/2019 DVT of deep femoral vein, left ([facility]) 05/14/2019 Mixed hyperlipidemia 05/14/2019 Current smoker 05/14/2019 Secondary hypertension 05/14/2019 Low back pain 05/14/2019 Chronic venous insufficiency 05/14/2019 History of DVT (deep vein thrombosis) 05/14/2019 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 No 10/07/2022 Comments No Sex and Gender Information Value Date Recorded Sex Assigned at Female 05/17/2019 10:01 AM CDT Legal Sex Female 5:45 PM HAND BUNCH MAKER Gender Identity Female 05/17/2019 10:01 AM CDT Sexual Orientation Not on file Occupation Industry Job Start Date Job End Date Not on file Not on file Not on file Not on file Last Filed Vital Signs Vital Sign Reading Time Taken Comments Blood Pressure 130/61 10/08/2022 4:55 AM HAND BUNCH MAKER Pulse 84 10/08/2022 4:55 AM HAND BUNCH MAKER Temperature 35.8 C (96.4 F) 10/08/2022 4:55 AM HAND BUNCH MAKER Respiratory Rate 18 10/08/2022 4:55 AM HAND BUNCH MAKER Oxygen Saturation 93% 10/08/2022 11:14 AM HAND BUNCH MAKER Inhaled Oxygen Concentration - - Weight 99.1 kg (218 lb 6.4 oz) 10/06/2022 10:36 PM HAND BUNCH MAKER Height 167.6 cm (5' 6) 10/06/2022 4:23 PM HAND BUNCH MAKER Body Mass Index 35.25 10/06/2022 4:23 PM HAND BUNCH MAKER Plan of Treatment Health Maintenance Due Date [...] Most Recently Relevant to Health Maintenance Insurance [employer] Advance Directives * Full Code (Latest Code Status on File) Date Activated Date Inactivated Comments 10/06/2022 11:37 PM 10/08/2022 2:01 PM Care Teams Scientific Programmer Analyst Relationship Specialty Start Date End Date Lesly Martin PA [address] [place] [address] PCP - General PHYSICIAN TRUSTEE OF ESTATE 05/10/19 Dom Serrato MD [address] [address] Vascular/Centerless Grinder Tender INTERNAL MEDICINE 05/13/19
--- OUTSIDE RECORDS SUMMARY | 2025-05-29 01:25 | XMS_ITS | Clinical Summary ---
Author Organization [facility] [address] [facility] [address] Address [address] [place] [address] Care Team Providers Care Wireless Internet Installer Name Role Phone Lesly Martin Primary Care Provider [phone] Allergies No known active allergies Medications rivaroxaban [...] on file Legal Sex Female 2:54 PM CALENDER RUNNER Gender Identity Not on file Sexual Orientation Not on file Obstetrics History Last Filed Vital Signs Vital Sign Reading Time Taken Comments Blood Pressure 140/84 12/13/2021 10:49 AM CALENDER RUNNER Pulse 86 12/13/2021 10:49 AM CALENDER RUNNER Temperature - - Respiratory Rate - - Oxygen Saturation 95% 12/13/2021 10:49 AM CALENDER RUNNER Inhaled Oxygen Concentration - - Weight 124.3 kg (274 lb) 12/13/2021 10:49 AM CALENDER RUNNER Height 170.2 cm (5' 7) 12/13/2021 10:49 AM CALENDER RUNNER Body Mass Index 42.91 12/13/2021 10:49 AM CALENDER RUNNER Plan of Treatment Not on file Insurance [facility] Care Teams Wireless Internet Installer Relationship Specialty Start Date End Date Lesly Martin PA [address] [place] [address] PCP - General Emergency Medicine 12/06/21
--- OUTSIDE RECORDS SUMMARY | 2025-05-29 01:25 | XMS_ITS | Clinical Summary ---
Author Organization [facility] Address [address] [place] [address] Phone Care Team Providers Care Quality Assurance Coach Name Role Phone Shyam Costa MD Primary Care Provider [phone] Social History Tobacco Use Types Packs/Day Years Used Date Smoking Tobacco: Never Assessed Comments Unknown Sex and Gender Information Value Date Recorded Sex Assigned at Not on file Legal Sex Female 3:32 PM CDT Gender Identity Not on file Sexual Orientation Not on file Plan of Treatment Health Maintenance Due Date Last Done Comments Hepatitis C Virus (HCV) Screening 1960 TdaP Immunization 1960 Pap Smear 1981 Cervical Cancer Screening (CCS) 1990 HPV/Cotest 1990 Cologuard 2005 Immunochemical Fecal Occult Blood 2005 Pneumococcal Immunization (5 0+ years) (1 of 1 - PCV) 2010 Zoster Immunization (1 of 2) 2010 SARS-COV-2 Immunization ( - season) 2024 Influenza Immunization (#1) 2025 Colonoscopy 05/23/2029 05/23/2019 Colorectal Cancer Screening 05/23/2029 Respiratory Syncytial Virus (RSV) Immunization (Adult) (1 - 1-dose 75+ series) 12/21/2035 Hepatitis B Immunization Aged Out No longer eligible based on patient's age to complete this topic Human Papillomavirus (HPV) Immunization Aged Out No longer eligible b ased on patient's age to complete this topic Meningococcal Immunization (ACWY) Aged Out No longer eligible based on patient's age to complete this topic Rotavirus Immunization Aged Out No lo nger eligible based on patient's age to complete this topic Insurance [employer] Care Teams Quality Assurance Coach Relationship Specialty Start Date End Date Shyam Costa MD [address] [place] [address] PCP - General Pulmonary Disease 08/04/19
--- NOTE | 2025-05-29 01:29 | ED_ITS ---
HPI - SOB/Dyspnea General Chief Complaint: Shortness of Breath/Dyspnea Stated Complaint: SOB Time Seen by Provider: 05/29/25 01:27 Source: patient and family Mode of arrival: ambulatory Limitations: no limitations History of Present Illness HPI Narrative: 64-year-old female, smoker with a history of COPD/ emphysema on 2 L of O2 per minute continuously, hypertension, diabetes mellitus, DVT on Xarelto presents to the ED with a 2 week history of -- worsening shortness of breath -- cough with occasional mucopurulent sputum -- Bilateral flank pain no chest pain no fever or chills no upper respiratory tract symptoms Pertinent past history: COPD and DVT Onset (ago): week(s) ( 2 weeks) Timing: constant Severity: severe Exacerbating factors: exertion Relieving factors: bronchodilators Known history of: COPD Associated symptoms: cough and wheezing Treatment prior to arrival: bronchodilator Related Data Home oxygen amount: 2 liters Home Medications ?Medication ?Instructions ?Recorded ?Confirmed ?Last Taken ?Type albuterol sulfate 2.5 mg/3 mL 2.5 mg inhalation Q4-6H PRN 10/19/24 10/19/24 Unknown History (0.083 %) solution for nebulization shortness of breat h or wheezing albuterol sulfate 90 mcg/actuation 2 inh inhalation Q6 H PRN 10/19/24 10/19/24 Unknown History aerosol inhaler bronchospasm escitalopram oxalate 10 mg tablet 10 mg PO DAILY 10/1910/19/24 Unknown History losartan 50 mg tablet 50 mg PO DAILY 10/19/2410/09 Unknown History metformin 500 mg tablet,extended 500 mg PO BID 5 10/19/24 Unknown History release 24 hr tiotropium bromide 2.5 2 inh inhalation DAILY 10/1910/19/24 10/18/24 History mcg/actuation mist for inhalation (Spiriva Respimat) Allergies Allergy/AdvReac Type Severity Reaction Status Date / Time No Known Allergies Allergy Verified 05/29/25 02:10 Review of Systems 2 Review of Systems: All systems reviewed & are unremarkable except as noted in HPI and below Constitutional: Constitutional: Reports as per HPI and Reports no additional constitutional complaints Eyes: Eyes: Reports as per HPI and Reports no additional eye complaints ENT: Reports system reviewed and no additional complaints, except as documented and Reports as per HPI Cardiovascular: Cardiovascular: Reports as per HPI and Reports no additional cardiovascular complaints Respiratory: Respiratory: Reports as per HPI, Reports no additional respiratory complaints, Reports cough, Reports dyspnea and Reports wheezing Gastrointestinal: Gastrointestinal: Reports as per HPI and Reports no additional gastrointestinal complaints Genitourinary: Genitourinary: Reports no additional female genitourinary complaints and Reports as per HPI Musculoskeletal: Musculoskeletal: Reports no additional musculoskeletal complaints and Reports as per HPI Integumentary/Breasts: Skin/Breast: Reports system reviewed and no additional complaints, except as docu and Reports as per HPI Neurologic: Reports system reviewed and no additional complaints, except as documented and Reports as per HPI Psychiatric: Psychiatric: Reports no additional psychiatric complaints and Reports as per HPI Endocrine: Endocrine: Reports no additional endocrine complaints and Reports as per HPI Hematologic/Lymphatic: Hematologic/Lymphatic: Reports no additional hematologic/lymphatic complaints and Reports as per HPI Allergic/Immunologic: Allergic/Immunologic: Reports no additional allergic/immunologic complaints and Reports as per HPI [facility] Past Medical History Medical History Tobacco abuse Type 2 diabetes mellitus DVT (deep vein thrombosis) in Emphysema (subcutaneous) (surgical) resulting from a procedure Hypertension COPD (chronic obstructive pulmonary disease) Social History Social History Social History: currently retired. She lives with her . she currently has no insurance and does not qualify for Medicaid. She is currently 63 years old. Smoking packs per day: 1 Smoking cigarettes per day: 20.0 Years smoked: 46 Smoking pack-years: 46.00 Smoking status: Current every day smoker Tobacco type: cigarettes Second hand tobacco smoke exposure: No Alcohol intake: never Substance use: never Substance use type: does not use Do You Feel Safe in your Home?: Yes Lack of Transportation: No Lack of Food: Never True Current Housing: I Have Housing Concerned About Future Housing: No Difficulty Paying Gas/Electric Bills: YES Difficulty Paying for Meds: YES Currently Unemployed: No Education: High School Diploma/GED Difficulty w/ Childcare or Family Care: No Spiritual care concerns: No Exam 2 Narrative: oxygen saturation of 90% on 2lts/min blood pressure 150/1 4 pulse 53. Const: General: ill appearing Nutritional Appearance: obese O rientation/consciousness: patient oriented x3 Limitations: no limitations HENMT: Head: normal to inspection Ears: external ears normal F krista/Nose/Sinus: Normal external nose present Face and sinus: normal facial exam Mouth: Yes Normal oral and palatal mucosa present Throat: posterior oropharynx normal Eyes: Conjunctivae: conjunctivae normal Pupils: Equal, round and reactive pupils present EOM: EOMs intact bilaterally Direct Ophthalmoscopy: no photophobia Neck: Neck: normal visual inspection and no lymphadenopathy Chest: Chest palpation & inspection: normal inspection of the chest Resp: Effort & Inspection: uses accessory muscles Auscultation: wheezes and diminished lung sounds Cardio: Rate: regular rate Rhythm: regular rhythm GI: GI Palp: Yes Soft to palpation Auscultation: normal bowel sounds O ther: no tenderness / rigidity / rebound. Back/Spine/Pelvis: Back: no CVA tenderness Skin: General skin exam: normal color Rashes: no rashes Wounds: no wounds Neuro: General: patient oriented x3, moves all extremities, no meningeal signs, no focal motor deficits and CN's II-XI intact bilaterally Speech: n ormal speech Extrem: General: normal to inspection and edema Other: Bilateral leg swelling. Psych: Affect: normal affect Attitude: cooperative Course Course Emergency Course: shortness of breath secondary to COPD exacerbation. Patient is on anticoagulation and hands PE is unlikely. Patient is noted to have a chest x- ray does not show any evidence of sepsis pneumonia/CHF. Patient had a normal troponin without any acute EKG findings. Troponin is marginally elevated. Patient tested negative for influenza /RSV/ COVID. flank pain-- urine is negative for blood. she passed a kidney stone last week. Vital Signs Vital signs: Vital Signs Temperature 36.1 C L 05/29/25 01:22 Pulse Rate 78 05/29/25 01:22 Respiratory Rate 24 H 05/29/25 01:22 Blood Pressure 177/90 H 05/29/25 01:22 Pulse Oximetry 98 05/29/25 01:22 Oxygen Delivery Nasal Cannula 05/29/25 01:22 Oxygen Flow Rate 2 05/29/25 01:22 Temperature 36.1 C L 05/29/25 01:22 Pulse Rate 81 05/29/25 01:22 Respiratory Rate 24 H 05/29/25 01:22 Blood Pressure 177/90 H 05/29/25 01:22 Pulse Oximetry 98 05/29/25 01:22 Oxygen Delivery Nasal Cannula 05/29/25 01:22 Oxygen Flow Rate 2 05/29/25 01:22 MDM - SOB/Dyspnea MDM Narrative Medical decision making narrative: COPD exacerbation Differential Diagnosis Differential diagnosis: Likely congestive heart failure and community acquired pneumonia Medical Records Attestation: I reviewed the patient's medical records. Lab Data Attestation: I reviewed the patient's lab results. 05/29/25 01:33 05/29/25 01:33 Labs: Lab Results 05/29/25 05/29/25 05/29/25 Range/Units 01:33 01:34 01:50 WBC 9.9 (4.8-10.8) K/mm3 RBC 4.48 (4.20-5.40) M/mm3 Hgb 12.9 (12.0-15.0) g/dL Hct 42.3 (35.0-49.0) % MCV 94.4 (78.0-102.0) fL MCH 28.8 (27.0-31.0) pg MCHC 30.5 L (32-36) g/dL RDW 13.8 (11.6-14.4) % Plt Count 297 (150-420) K/mm3 MPV 10.7 (9.2-11.8) fl Immature Gran % (Auto) 0.3 H (0.0-0.0) % Neut % (Auto) 52.4 (50.0-70.0) % Lymph % (Auto) 30.2 (18.0-42.0) % [place] % (Auto) 6.1 (2.0-11.0) % Eos % (Auto) 9.9 H (1.0-6.0) % Baso % (Auto) 1.1 H (0.0-1.0) % Lymph # (Auto) 2.98 (1.10-4.50) K/mm3 [place] # (Auto) 0.60 (0.10-0.90) K/mm3 Eos # (Auto) 0.98 H (0.02-0.50) K/mm3 Baso # (Auto) 0.11 H (0.00-0.10) K/mm3 Abs Immat Gran (auto) 0.03 H (0.00-0.00) K/mm3 Absolute Neuts (auto) 5.17 (1.70-7.20) K/mm3 Absolute Nucleated RBC 0.00 (0.00-0.00) K/mm3 Nucleated RBC % 0.0 (0-0.0) % Sodium 145 (137-145) mmol/L Potassium 3.9 (3.4-5.0) mmol/L Chloride 105 (98-107) mmol/L Carbon Dioxide 34 H (22-30) mmol/L Anion Gap 6 (4-12) mmol/L BUN 25 H (7-17) mg/dL Creatinine 0.74 (0.7-1.0) mg/dL Estim Creat Clear Calc 77 ml/min Estimated GFR > 60 (59 - ) Glucose 134 H (65-110) mg/dL Calculated Osmolality 306 H (285-295) mOsm/kg Lactic Acid 0.7 (0.4-2.0) mmol/L Calcium 10.0 (8.4-10.2) mg/dL Total Bilirubin 0.5 (0.2-1.3) mg/dL AST 21 (14-36) U/L ALT 14 (6-35) U/L Alkaline Phosphatase 78 (38-126) U/L Total Creatine Kinase 71 (30-135) U/L Troponin I 0.014 (0.000-0.034) ng/mL NT-Pro-B Natriuret Pep 157 H (19.9-100) pg/mL Total Protein 7.4 (6.3-8.2) g/dL Albumin 4.4 (3.5-5.1) g/dL Lipase 109 (23-300) U/L Urine Color Light yellow (Yellow) Urine Appearance Clear (Clear) Urine pH 6.5 (5.0-8.0) Ur Specific [place] <= 1.005 L (1.010-1.020) Urine Protein Negative (Negative) Urine Glucose (UA) Negative (Negative) Urine Ketones Negative (Negative) Ur Blood (Man) Negative (Negative) Urine Nitrate Negative (Negative) Urine Bilirubin Negative (Negative) Urine Urobilinogen 0.2 (0.2-1.0) mg/dL Leukocyte Esterase Rfl Negative (Negative) SYEDA/UL Influenza A (RT-PCR) Negative (Negative) Influenza B (RT-PCR) Negative (Negative) RSV (RT-PCR) Negative (Negative) SARS-CoV-2 RNA (RT-PCR) Negative (Negative) Imaging Data My impression: chest x-ray does not show any infiltrates evidence of CHF. ECG Data EKG #1: ECG completion date: 05/29/25 ECG completion time: 01:48 Interpretation: Normal sinus rhythm. Normal axis left bundle branch block pattern. ST elevation. This EKG is similar to previous EKG done on 02/17/2025. Discharge Plan Discharge Clinical Impression: Acute exacerbation of chronic obstructive pulmonary disease (COPD) Patient Disposition: Home Condition: Stable Instructions: Antibiotic Form, COPD (Chronic Obstructive Pulmonary Disease) (ED) Additional Instructions: offered to admit the patient for COPD exacerbation. Patient would like to go home and does not want to be admitted. Patient Language: Hungarian Prescriptions: New prednisone 20 mg tablet 20 mg PO BID Qty: 10 0RF amoxicillin-pot clavulanate 875-125 mg tablet 1 tablet PO Q12H Qty: 14 0RF No Action losartan 50 mg tablet 50 mg PO DAILY albuterol sulfate 2.5 mg /3 mL (0.083 %) solution for nebulization 2.5 mg inhalation Q4-6H PRN (Reason: shortness of breath or wheezing) albuterol sulfate 90 mcg/actuation HFA aerosol inhaler 2 inh INHALATION Q6H PRN (Reason: bronchospasm) metformin 500 mg tablet extended release 24 hr 500 mg PO BID escitalopram oxalate 10 mg tablet 10 mg PO DAILY Spiriva Respimat 2.5 mcg/actuation mist 2 inh inhalation DAILY azithromycin [Zithromax] 250 mg Tablet 500 mg PO DAILY Qty: 1 0RF methylprednisolone 4 mg tablets,dose pack See Rx Instructions .ROUTE .COMPLEX Qty: 21 0RF Rx Instructions: for 6 days benzonatate 200 mg capsule 200 mg PO TID PRN (Reason: cough) Qty: 60 0RF Xarelto 10 mg tablet 10 mg PO DAILY Qty: 90 0RF Rx Instructions: for 35 days prednisone 20 mg tablet 40 mg PO DAILY 4 Days Qty: 8 0RF azithromycin 250 mg tablet See Rx Instructions .ROUTE .COMPLEX Qty: 6 0RF Rx Instructions: For 250 mg dose pack: take 500 mg today (day 1), then 250 mg for 4 days (days 2-5) ipratropium-albuterol 0.5 mg-3 mg(2.5 mg base)/3 mL solution for nebulization 3 ml inhalation QID PRN (Reason: shortness of breath) Qty: 90 0RF Follow-up/Referrals: Steven Messer MD [Primary Care Provider, Internal Medicine]
--- NOTE | 2025-05-29 01:33 | ECG_ITS ---
Test Date: 2025-05-29 01:46:35 Measurements Intervals Hawkins Rate: 80 P: 73 MA: 149 QRS: 7 QRSD: 146 T: 92 QT: 413 QTc: 479 Interpretive Statements SINUS RHYTHM LEFT BUNDLE BRANCH BLOCK BASELINE ARTIFACT- I, II, III, AVR, AVL, AVF ABNORMAL ECG Compared to ECG 02/17/2025 01:15:23 HEART RATE HAS DECREASED Electronically Signed On 05-29-2025 05:42:06 CDT by Elkin Cross D.O.
[2025-05-29] MEDS: IPRATROPIUM 0.5 MG/ALBUTEROL SULFATE 2.5 MG AMPUL.NEB 3 ML INHALATION (01:41)
[2025-05-29 01:49] LABS: Hematocrit 42.3 % (35.0-49.0); Hemoglobin 12.9 g/dL (12.0-15.0); Immature Granulocyte Percent A 0.3 % (0.0-0.0); Lymphocytes Absolute Auto 2.98 K/mm3 (1.10-4.50); Mean Corpuscular HGB Conc 30.5 g/dL (32-36); Mean Corpuscular Hemoglobin 28.8 pg (27.0-31.0); Mean Corpuscular Volume 94.4 fL (78.0-102.0); Nucleated Red Blood Cells Absolute Auto 0.00 K/mm3 (0.00-0.00); Nucleated Red Blood Cells Perc 0.0 % (0-0.0); Platelet Count Result 297 K/mm3 (150-420); Red Blood Count 4.48 M/mm3 (4.20-5.40); White Blood Count 9.9 K/mm3 (4.8-10.8)
[2025-05-29 02:15] LABS: Add Urine Microscopic? NO; Appearance Urine Clear (Clear); Glucose Urine UA Negative (Negative); Leukocyte Esterase Ur Negative LEU/UL (Negative); Nitrate Urine Negative (Negative); Specific Grav Ur <= 1.005 (1.010-1.020)
[2025-05-29 02:26] LABS: Influenza A QL RT-PCR Negative (Negative); Influenza B QL RT-PCR Negative (Negative); RSV RNA, RT-PCR Negative (Negative); SARS-CoV-2 RNA PCR Negative (Negative)
[2025-05-29 02:34] LABS: Alanine Aminotransferase 14 U/L (6-35); Albumin Level 4.4 g/dL (3.5-5.1); Alkaline Phosphatase 78 U/L (38-126); Anion Gap 6 mmol/L (4-12); Aspartate Amino Transferase 21 U/L (14-36); Bilirubin,Total 0.5 mg/dL (0.2-1.3); Blood Urea Nitrogen 25 mg/dL (7-17); Calcium 10.0 mg/dL (8.4-10.2); Carbon Dioxide 34 mmol/L (22-30); Chloride 105 mmol/L (98-107); Creatine Kinase 71 U/L (30-135); Estimated CRCL calculation 77 ml/min; Estimated Glomerular Filt Rate > 60; Glucose 134 mg/dL (65-110); Lipase 109 U/L (23-300); Osmolality Calculated 306 mOsm/kg (285-295); Potassium 3.9 mmol/L (3.4-5.0); Sodium 145 mmol/L (137-145); Total Protein 7.4 g/dL (6.3-8.2)
[2025-05-29 02:46] LABS: NT Pro B Type Natriuretic Pept 157 pg/mL (19.9-100); Troponin I 0.014 ng/mL (0.000-0.034)
== END 2025-05-29 03:36 | disposition home or self-care (01) ==
PROVIDERS: Emergency Provider Internal Medicine Critical Care Medicine; PCP Internal Medicine
DX: J44.1 Chronic obstructive pulmonary disease with (acute) exacerbation (principal); I10 Essential (primary) hypertension; E11.9 Type 2 diabetes mellitus without complications; F17.210 Nicotine dependence, cigarettes, uncomplicated; Z86.718 Personal history of other venous thrombosis and embolism; Z79.01 Long term (current) use of anticoagulants; Z20.822 Contact with and (suspected) exposure to COVID-19
CPT/HCPCS: 36415; 71045; 80053; 81003; 82550; 83605; 83690; 83880; 84484; 85025; 87637; 93005; 96374; 99284; J2919

== ENCOUNTER 2025-07-12 08:56 | Outpatient (CLI) | payer OTHER, SELFPAY ==
--- NOTE | ~2025-07-12 | MR_ITS ---
EXAMINATION: MR abdomen wo/w con DATE: 07/12/2025 10:16 INDICATION: Hematuria. TECHNIQUE: Magnetic resonance imaging (MRI) of the abdomen was performed without and with 18 mL MultiHance intravenous contrast. COMPARISON: CT abdomen and pelvis 02/17/2025 FINDINGS: The liver is normal. The gallbladder is absent. The spleen, pancreas, and right adrenal gland are normal. There is a 12 mm mass in left adrenal gland containing microscopic fat, consistent with an adenoma. There are cysts in the kidneys measuring up to 7 mm on the left. There is mild left hydronephrosis. There are no dilated loops of bowel. There are no dilated loops of bowel. There is no ascites. IMPRESSION: 1. New mild left hydronephrosis. Reviewed, dictated and finalized at location E.
--- OUTSIDE RECORDS SUMMARY | 2025-07-12 09:00 | XMS_ITS | Clinical Summary ---
Author Organization [facility] Address [address] [place] [address] Care Team Providers Care Violin Restorer Name Role Phone Lesly Martin Primary Care Provider [phone] Dom Serrato MD Unavailable Allergies Active Allergy [...] (05/22/2019): Added automatically from request for surgery [id number] Body mass index 40.0-44.9, adult 05/17/2019 Toe cyanosis 05/14/2019 Bilateral lower extremity edema 05/14/2019 DVT of deep femoral vein, left ([facility]) 05/14/2019 Mixed hyperlipidemia 05/14/2019 Current smoker 05/14/2019 Secondary hypertension 05/14/2019 Low back pain 05/14/2019 Chronic venous insufficiency 05/14/2019 History of DVT (deep vein thrombosis) 05/14/2019 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 No 10/07/2022 Comments No Sex and Gender Information Value Date Recorded Sex Assigned at Female 05/17/2019 10:01 AM CDT Legal Sex Female 5:45 PM OPERATION SUPERVISOR Gender Identity Female 05/17/2019 10:01 AM CDT Sexual Orientation Not on file Occupation Industry Job Start Date Job End Date Not on file Not on file Not on file Not on file Last Filed Vital Signs Vital Sign Reading Time Taken Comments Blood Pressure 130/61 10/08/2022 4:55 AM OPERATION SUPERVISOR Pulse 84 10/08/2022 4:55 AM OPERATION SUPERVISOR Temperature 35.8 C (96.4 F) 10/08/2022 4:55 AM OPERATION SUPERVISOR Respiratory Rate 18 10/08/2022 4:55 AM OPERATION SUPERVISOR Oxygen Saturation 93% 10/08/2022 11:14 AM OPERATION SUPERVISOR Inhaled Oxygen Concentration - - Weight 99.1 kg (218 lb 6.4 oz) 10/06/2022 10:36 PM OPERATION SUPERVISOR Height 167.6 cm (5' 6) 10/06/2022 4:23 PM OPERATION SUPERVISOR Body Mass Index 35.25 10/06/2022 4:23 PM OPERATION SUPERVISOR Plan of Treatment Health Maintenance Due Date Last Done Comments Annual Physical 12/21/1963 Hepatitis C 1978 Pneumococcal Vaccine: 50+ Years (1 of 2 - PCV) 12/21/1979 Zoster Vaccines (1 of 2) 2010 RSV Immunization or 60+ Years (1 - Risk 60-74 years 1-dose series) 2020 Mammogram Screening 07/23/2022 07/23/2020, 05/14/2019 COVID-19 Vaccine (1 - 2023-2 5 season) 2025 Colorectal Cancer Screening Colonoscopy (10 Years) 05/23/2029 [...] Most Recently Relevant to Health Maintenance Insurance [employer] Advance Directives * Full Code (Latest Code Status on File) Date Activated Date Inactivated Comments 10/06/2022 11:37 PM 10/08/2022 2:01 PM Care Teams Violin Restorer Relationship Specialty Start Date End Date Lesly Martin PA [address] [place] [address] PCP - General PHYSICIAN COUNSELOR EDUCATION PROFESSOR 05/10/19 Dom Serrato MD [address] [address] Vascular/Senior Underwriter INTERNAL MEDICINE 05/13/19
--- OUTSIDE RECORDS SUMMARY | 2025-07-12 09:00 | XMS_ITS | Encounter Summary ---
Author Organization [facility] Address [address] [place] [id number] Care Team Providers Care Canoe Builder Name Role Phone Lesly Martin Primary Care Provider [phone] Dom Serrato MD Unavailable Encounter Details Date Type Department Care Team (Late st Contact Info) Description 03/16/2019 Abstract [facility] CONVERSION [address] [place] [address] , Generic Conversion, Social History Tobacco Use Types Packs/Day Years Used Date Smoking Tobacco: Never Assessed Comments Unknown Sex and Gender Information Value Date Recorded Sex Assigned at Female 05/17/2019 10:01 AM CDT Legal Sex Female 5:45 PM SAILING OFFICER Gender Identity Female 05/17/2019 10:01 AM CDT Sexual Orientation Not on file documented as of this encounter Plan of Treatment Not on file documented as of this encounter Visit Diagnoses Not on filedocumented in this encounter Additional Health Concerns Infection Onset Date Last Indicated Resolved Time COVID-19 Rule Out 10/06/2021 10/06/2021 10/06/2021 1:51 PM SAILING OFFICER COVID-19 Confirmed 10/06/2021 10/06/2021 12:32 AM SAILING OFFICER COVID-19 Rule Out 10/06/2022 10/06/2022 10/06/2022 8:03 PM SAILING OFFICER documented as of this encounter Care Teams Canoe Builder Relationship Specialty Start Date End Date Lesly Martin PA [address] [place] [address] PCP - General PHYSICIAN RENTAL SALESPERSON 05/10/19 Dom Serrato MD [address] [place] [address] Vascular/Photo Lab Specialist INTERNAL MEDICINE 05/13/19 documented as of this encounter
--- OUTSIDE RECORDS SUMMARY | 2025-07-12 09:00 | XMS_ITS | Clinical Summary ---
Author Organization [facility] [address] Address [address] [place] [address] Care Team Providers Care Per Diem Rn Name Role Phone Unknown, Notinfile Primary Care Provider Unavail able Allergies No known active allergies Medications rivaroxaban (XARELTO) 10 mg tablet Take 10 mg by mouth daily 05/03/20 19 Active Symbicort 160-4.5 mcg/actuation inhaler INHALE 2 PUFFS BY MOUTH TWICE DAILY DIRECTED 04/21/20 21 Active cyclobenzapri ne (FLEXERIL) 10 mg tablet Take 1 tablet by mouth 2 (two) times a day as needed 04/24/20 19 Active loratadine (CLARITIN) 10 mg tablet Take 10 mg by mouth daily 04/01/20 21 Active traMADoL (ULTRAM) 50 mg tablet Take 50 mg by mouth every 6 (six) hours as needed Active tiotropium bromide (SPIRIVA RESPIMAT) 2.5 mcg/actuation inhaler Inhale 5 mcg daily Active varenicline (CHANTIX) 1 mg tablet TAKE 1 TABLET BY MOUTH TWICE DAILY (TAKE WITH A FULL GLASS OF WATER) 60 tablet 01/04/20 22 Active Additional Information Patient not taking.Reported on 06/17/2025 metFORMIN XR (GLUCOPHAGE XR) 500 mg 24 hr tablet Take 1 tablet (500 mg total) by mouth 10/19/19 25 Active losartan (COZAAR) 50 mg tablet Take 1 tablet (50 mg total) by mouth daily Active benzonatate (TESSALON) 200 mg capsule TAKE 1 CAPSULE BY MOUTH THREE TIMES DAILY NEEDED FOR COUGH Active hydroCHLOROth iazide 12.5 mg tablet Take 1 tablet/capsule (12.5 mg total) by mouth daily 06/03/20 Active fluticasone-u meclidin-rosina nter (Trelegy Ellipta) 100-62.5-25 mcg inhaler Inhale 1 puff daily 60 each 06/17/20 25 Active albuterol HFA (PROVENTIL HFA,VENTOLIN HFA,PROAIR HFA) 90 mcg/actuation inhaler Inhale 2 puffs every 6 (six) hours as needed for wheezing 1 each 06/17/20 25 Active albuterol 2.5 mg /3 mL (0.083 %) nebulizer solution Take 3 mL (2.5 mg total) by nebulization every 6 (six) hours as needed for shortness of breath or wheezing 75 mL 11 06/17/20 25 Active albuterol HFA (PROVENTIL HFA,VENTOLIN HFA,PROAIR HFA) 90 mcg/actuation inhaler INHALE 2 PUFFS BY MOUTH EVERY 4 TO 6 HOURS NEEDED 04/26/20 19 025 Discontinued albuterol 2.5 mg /3 mL (0.083 %) nebulizer solution Inhale 2.5 mg every 6 (six) hours as needed 025 Discontinued(A lternate therapy) Active Problems Problem Noted Date Diagnosed Date Centrilobular emphysema 06/19/2025 Personal history of nicotine dependence 06/19/20 Encounters Date Type Department Care Team Description 06/20/2025 Results Follow-Up [facility] Pulmonary at [address] [place] [phone] Anjel Rodgers DO CBC with auto differential, Differential, auto 06/17/2025 1:55 PM CDT Lab [address] Centrilobular emphysema (HCC) 06/17/2025 1:00 PM CDT Office Visit [facility] Pul[facility] at [address] [place] [phone] Anjel Rodgers DO Centrilobular emphysema (HCC) (Primary Dx); Chronic hypoxic respiratory failure (HCC); Personal history of nicotine dependence from Last 3 Months Surgical History Surgery Date Site/Laterality Comments HYSTERECTOMY [...] Tobacco: Every Day Cigarettes Smokeless Tobacco: Never AUDIT-C Answer Date Recorded Frequency of Alcohol Consumption Not on file 06/17/2025 Q2: How many drinks containi ng alcohol do you have on a typical day when you are drinking? Patient does not drink Frequency of Binge Drinking Not on file 06/2025 Comments Unknown Sex and Gender Information Value Date Recorded Sex Assigned at Not on file Legal Sex Female 2:54 PM ABALONE DIVER Gender Identity Not on file Sexual Orientation Not on file Obstetrics History Last Filed Vital Signs Vital Sign Reading Time Taken Comments Blood Pressure 109/66 06/17/2025 1:04 PM CDT Pulse 75 06/17/2025 1:04 PM CDT Temperature 36.8 C (98.3 F) 06/17/2025 1:04 PM CDT Respiratory Rate 20 06/17/2025 1:04 PM CDT Oxygen Saturation 97% 06/17/2025 1:0 4 PM CDT on two liter of oxgyen Inhaled Oxygen Concentration - - Weight 95.3 kg (210 lb) 06/17/2025 1:04 PM CDT Height 170.2 cm (5' 7) 06/17/2025 1:04 PM CDT Body Mass Index 32.89 06/17/2025 1:04 PM CDT Plan of Treatment Health Maintenance Due Date Last Done Comments Colon Cancer Screening-Colonoscopy 1960 Depression Screening 1960 Hepatitis C Screening 1960 Hepatitis B Screening 1978 Regular Well Visit/Exam 18-64 1978 Pneumococcal vaccine <65 (1 of 2 - PCV) 12/21/1979 Zoster Vaccine (1 of 2) 2010 Breast Cancer Screening-Mammogram 07/23/2021 07/23/2020, 07/23/2020, 05/14/2019 Influenza Vaccine (#1) 2025 07/30/2024 DTaP/Tdap/Td Vaccine (3 - Td or Tdap) 07/26/2034, 05/23/2022 Procedures Procedure Name Priority Date/Time Associated Diagnosis Comments DIFFERENTIAL AUTO Routine 06/17/2025 1:5 4 PM CDT Centrilobular emphysema (HCC) CBC WITH AUTO DIFFERENTIAL Routine 06/17/2025 1:54 PM CDT Centrilobular emphysema (HCC) from Last 3 Months Results * (ABNORMAL) Differential, auto (06/17/2025 1:54 PM CDT) Neutrophil abs 7.09(H) 1.50 - 6.50 K/cumm Imm gran abs 0.03 0.00 - 0.10 K/cumm [facility] Lymphocyte abs 2.42 0.80 - 3.30 K/cumm [facility] Monocyte abs 0.72 0.20 - 0.80 K/cumm [facility] Eosinophil abs 0.48 0.00 - 0.50 K/cumm [facility] Basophil abs 0.08 0.00 - 0.10 K/cumm [facility] Neutrophil pct 65.5 % [facility] Comment: Interpretive Data Percent cell count reference ranges are not reported, since discordance with absolute values may lead to misinterpretation of CBC data. Current Interpretive Data was last revised on 2018. Imm gran pct 0.3 % [facility] Comment: Interpretive Data Percent cell count reference ranges are not reported, since discordance with absolute values may lead to misinterpretation of CBC data. Current Interpretive Data was last revised on 2018. Lymphocyte pct 22.4 % [facility] Comment: Interpretive Data Percent cell count reference ranges are not reported, since discordance with absolute values may lead to misinterpretation of CBC data. Current Interpretive Data was last revised on 2018. Monocyte pct 6.7 % [facility] Comment: Interpretive Data Percent cell count reference ranges are not reported, since discordance with absolute values may lead to misinterpretation of CBC data. Current Interpretive Data was last revised on 2018. Eosinophil pct 4.4 % [facility] Comment: Interpretive Data Percent cell count reference ranges are not reported, since discordance with absolute values may lead to misinterpretation of CBC data. Current Interpretive Data was last revised on 2018. Basophil pct 0.7 % [facility] Comment: Interpretive Data Percent cell count reference ranges are not reported, since discordance with absolute values may lead to misinterpretation of CBC data. Current Interpretive Data was last revised on 2018. Blood 06/17/2025 1:54 PM CDT 06/17/2025 4:35 PM CDT Anjel Rodgers DO LAB BLOOD ORDERABLES Анна keenan Result [facility] [address] [facility] [place] [address] * (ABNORMAL) CBC with auto differential (06/17/2025 1:54 PM CDT) WBC 10.82(H) 3.80 - 9.90 K/cumm Hgb 12.9 11.9 - 15.5 g/dL [facility] Hct 41.2 35.6 - 45.5 % [facility] Plt 284 150 - 400 K/cumm [facility] MPV 11.4 9.1 - 12.3 fL [facility] RBC 4.38 3.90 - 5.20 M/cumm [facility] MCV 94.1 81.3 - 96.4 fL [facility] MCH 29.5 27.1 - 33.3 pg [facility] MCHC 31.3(L) 32.3 - 35.7 g/dL [facility] RDW CV 14.3 11.1 - 14.9 % [facility] RDW SD 49.3(H) 35.7 - 48.1 fL [facility] NRBC abs 0.00 0.00 - 0.01 K/cumm [facility] Blood 06/17/2025 1:54 PM CDT 06/17/2025 4:35 PM CDT Anjel Rodgers DO LAB BLOOD ORDERABLES Анна l Result [facility] [address] [facility] [place] [address] from Last 3 Months Insurance Care Teams Per Diem Rn Relationship Specialty Start Date End Date Unknown, Notinfile PCP - General 06/18/25
--- OUTSIDE RECORDS SUMMARY | 2025-07-12 09:00 | XMS_ITS | Encounter Summary ---
Author Organization [facility] Address [facility] [place] [address] Care Team Providers Care Catechist Name Role Phone Lesly Martin Primary Care Provider [phone] Dom Serrato MD Unavailable Encounter Details Date Type Department Care Team (Late st Contact Info) Description 05/14/2019 Abstract [facility] [address] [place] [address] Dom Serrato MD [address] [facility], [address] [place] [address] Social History Tobacco Use Types Packs/Day Years [...] AM CDT Legal Sex Female 5:45 PM MOLDING FITTER Gender Identity Female 05/17/2019 10:01 AM CDT [...] Rule Out 10/06/2021 10/06/2021 10/06/2021 1:51 PM MOLDING FITTER COVID-19 Confirmed 10/06/2021 10/06/2021 12:32 AM MOLDING FITTER COVID-19 Rule Out 10/06/2022 10/06/2022 10/06/2022 8:03 PM MOLDING FITTER documented as of this encounter Care Teams Catechist Relationship Specialty Start Date End Date Lesly Martin PA [address] [address] PCP - General PHYSICIAN ZOO DIRECTOR 05/10/19 Dom Serrato MD [address] [address] Vascular/Ferryboat Helper INTERNAL MEDICINE 05/13/19 documented as of this encounter
--- OUTSIDE RECORDS SUMMARY | 2025-07-12 09:00 | XMS_ITS | Data Portability ---
Author Organization [facility], Main Office Address [address] [place] [address] Care Team Providers Care Coppersmith Apprentice Name Role Phone ISAIAS SMITH Primary Care Provider [phone] Assessment No assessment recorded. Plan of Treatment Reminders Order Date Submit Date Provider Last Modified By Organization Details Last Modified Time Details Appointments None recorded. Lab None recorded. Referral None recorded. Procedures None recorded. Surgeries None recorded. Imaging LDCT, chest, for lung cancer screening - Schedule after 06/23/20232022 023 [facility] ([facility]), [address] [place], [address], 17:49:11 Medication Orders None recorded. Patient TargetsNo targets recorded. Patient InstructionsNo instructions recorded. Reason for Referral None Reported. Results Created Date Observation Date Name Description Value Unit Range Abnormal Flag Note LastModifiedBy Organization Detail LastModifiedTime 02/25/20 22 02/19/2022 CPAP compl iance * No observ ation record ed. [id number], [address], 12/07/2022 23:14:51 06/23/20 22 06/23/2022 LDCT, chest , for lung cance r scree teodoro No observ ation record ed. [id number] [facility] Add On Lab Orders [address] [place], [address], 12/07/2022 23:14:51 06/26/20 23 06/26/2023 LDCT, chest , for lung cance r scree teodoro No observ ation record ed. [email or web address] ([facility]) [address] [place], [address], 07/07/2023 19:04:42 Result Notes None recorded. Problems Name Problem SNOMED Code Status Onset Date Resolution Date Notes Provider Name and Address Organization Details Recorded Time Nicotine dependence 32399439 Active 2020 Not Available [facility] 3 11:42:59 History of SARS-CoV-2 4690614205083 59216 Active 2021 Not Available [facility] 3 11:42:59 Gastroesop hageal reflux disease without esophagiti s 058321394 Active 2021 Not Available [facility] 3 11:42:59 Bronchiect asis 52217524 Active 2021 Not Available [facility] 3 11:42:59 Asthma-chr onic obstructiv e pulmonary disease overlap syndrome 4319909156456 9107 Active 2022 Not Available [facility] 3 11:42:59 Notes:Albuterol nebs as need ed since 2019 Albuterol HFA as needed since 2019 Spiriva Handihaler 1 puff daily 5085-3567 Spiriva Respimat 2.5 mcg daily since 2022 Symbicort HFA 160/4.5 mcg 2 puffs BID since 2019 2-D echocardiogram 04/08/21 EF 56%, mild LVH, mild RVE [facility] home sleep study 04/08/21 AHI = 10 [facility] titration sleep study 05/30/21 Gomez small Varun mask @ 8 cmH2O, PLMI [...] Available [facility] 12/07/2022 23:07:41 Imaging Results None recorded. Procedure Notes None recorded. Medical Equipment None Reported. Allergies Allergen ID Allergen Name Allergen Category Reaction Reaction Severity Criticality Documentation Date Start Date Code Code System Note Provider Name and Address Organization Details Recorded Time 40015 furosemid e medicatio n Not available Not available Not available 12/07/2022 4603 Rx[facility] Available [facility] 23:14:27 Medications Name Sig Start Date Stop [...] Not Avai lable Vitals Date Recorded Body height Body temperature Heart rate Oxygen saturation Oxygen saturation in Arterial blood by Pulse oximetry Systolic And Diastolic Provider Name and Address Organization Details Last Updated DateTime 3 170.18 cm 97.6 [degF] 84 /min 95 % 95 % 130/84 mm[Hg] Paulette Chamberlain RN [place] [facility] 3 13:55:40 Date Recorded Body mass index (BMI) Body height Oxygen saturation Oxygen saturation in Arterial blood by Pulse oximetry Pain severity - 0-10 verbal numeric rating [Score] - Reported Heart rate Body temperature Body weight Systolic And Diastolic Provider Name and Address Organization Details Last Updated DateTime 2 38.6 kg/m2 170.18 cm 96 % 96 % 9 94 /min 97.6 [degF] 397827. 88 g 128/76 mm[Hg] Not Available [facility] 3 23:08:09 Date Recorded Body height Oxygen saturation Oxygen saturation in Arterial blood by Pulse oximetry Heart rate Body temperature Systolic And Diastolic Provider Name and Address Organization Details Last Updated DateTime 2 170.18 cm 92 % 92 % 87 /min 98.4 [degF] 122/78 mm[Hg] Not Available [facility] 3 23:08:09 Date Recorded Body height Oxygen saturation Oxygen saturation in Arterial blood by Pulse oximetry Heart rate Systolic And Diastolic Provider Name and Address Organization Details Last Updated DateTime 2 170.18 cm 95 % 95 % 83 /min 140/72 mm[Hg] Not Available [facility] 3 23:08:09 Date Recorded Body height Heart rate Oxygen saturation Oxygen saturation in Arterial blood by Pulse oximetry Systolic And Diastolic Provider Name and Address Organization Details Last Updated DateTime 3 170.18 cm 76 /min 94 % 94 % 144/70 mm[Hg] Shanna GIRON [facility] 3 11:55:04 Social History Question Answer Notes LastModified by Organizat ion Details LastModified Time Tobacco Smoking Status Current Every Day Smoker 5/6 a day Not Available [facility] 12/07/2022 23:05:59 What Is Your Level Of Caffeine Consumption? Moderate [id number] Information not available 12/07/2022 How Much Tobacco Do You Chew? None MIGRATION.[id number] 8622 Information not available 12/07/2022 In The 14 Days Before Symptom Onset, Have You Had Close Contact With A Laboratory-confir med COVID-19 While That Case Was Ill? No [id number].[id number] Information not available 12/07/2022 In The 14 Days Before Symptom Onset, Have You Had Close Contact With A Person Who Is Under Investigation For COVID-19 While That Person Was Ill? No MIGRATION.[id number] 8377 Information not available 12/07/2022 What Type Of Diet Are You Following? REGULAR MIGRATION.330203 7414 Information not available 12/07/2022 Which Illicit Or Recreational Drugs Have You Used? None MIGRATION.108978 5920 Information not available 12/07/2022 Do You Have An Electrostatic Air Filter? No MIGRATION.946887 2357 Information not available 12/07/2022 Do You Have A Humidifier? No MIGRATION.811168 9708 Information not available 12/07/2022 Do You Have Moisture Problems In Your Home? No MIGRATION.204531 1032 Information not available 12/07/2022 What Was The Date Of Your Most Recent Tobacco Screening? 01/25/2022 [id number].[id number] 0188 Information not available 12/07/2022 How Many Children Do You Have? 2 MIGRATION.666443 3951 Information not available 12/07/2022 Do You Have Any Pets? Yes MIGRATION.701668 3100 Information not available 12/07/2022 At What Age Did You Start Smoking Tobacco? 15 MIGRATION.552462 4277 Information not available 12/07/2022 Are You Passively Exposed To Smoke? Yes MIGRATION.913285 6774 Information not available 12/07/2022 How Much Tobacco Do You Smoke? 0.25 PPD MIGRATION.466583 6851 Information not available 12/07/2022 How Many Years Have You Smoked Tobacco? 45 MIGRATION.775925 0599 Information not available 12/07/2022 Have You Recently Traveled Abroad? No MIGRATION.977262 9438 Information not available 12/07/2022 Sex: Unknown Functional Status Question Answer Note LastModified by Organizat ion Details LastModified Time What is your level of alcohol consumption? Occasional MIGRATION.[id number] 026 Information not available 12/07/2022 Do you or have you ever used smokeless tobacco? 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 Former user of electronic cigarettes MIGRATION.[id number] 026 Information not available 12/07/2022 What is your exercise level? None MIGRATION.0516643 026 Information not available 12/07/2022 Mental Status None recorded. Family History Relationship Description Onset Age of this Age Resolved Age Notes LastModified by Organization Details LastModified Time Father Carcinoma of urinary bladder, superficial MIGRATION.134 [id number] Not available 12/07/2022 23:07:43 Father Hypertensive disorder MIGRATION.980 [id number] Not available 12/07/2022 23:07:44 Mother Malignant neoplasm of lung MIGRATION.118 [id number] Not available 12/07/2022 23:07:44 Mother Hypertensive disorder MIGRATION.056 [id number] Not available 12/07/2022 23:07:44 Maternal Aunt Malignant neoplasm of breast MIGRATION.131 [id number] Not available 12/07/2022 23:07:44 Paternal Aunt Malignant neoplasm of breast MIGRATION.388 [id number] Not available 12/07/2022 23:07:44 Maternal Grandmother Hypertensive disorder MIGRATION.852 [id number] Not available 12/07/2022 23:07:44 Brother Diabetes mellitus MIGRATION.146 [id number] Not available 12/07/2022 23:07:44 Medical History No medical history recorded. Gynecological HistoryNo gynecological history recorded. Obstetrics History GPAL:G 0 P 0 0 0 0 Past Encounters Encounter ID Performer Location Encounter Start Date Encounter Closed Date Diagnosis/Indication Diagnosis SNOMED-CT Code Diagnosis ICD10 Code Diagnosis IMO Codes Diagnosis Note [id number] [facility] [place] [address] [place] [address] 03/25/2021 00:00:00 03/26/2021 00:54:21 [id number] [facility] [place] [address] [place] [address] 05/13/2021 00:00:00 05/13/2021 16:31:20 [id number] [facility] [place] [address] [place] [address] 08/05/2021 00:00:00 08/05/2021 16:56:41 [id number] [facility] [place] [address] [place] [address] 08/31/2021 00:00:00 08/31/2021 16:07:42 [id number] [facility] [place] [address] [place] [address] 12/14/2021 00:00:00 12/14/2021 16:53:11 [id number] ERICH Estrada [facility] [place] [address] [place] [address] 01/25/2022 00:00:00 01/25/2022 13:36:47 [id number] [facility] [place] [address] [place] [address] 02/21/2022 00:00:00 02/21/2022 13:18:01 [id number] ERICH Estrada [facility] [place] [address] [place] [address] 07/08/2022 00:00:00 07/08/2022 16:38:11 [id number] ERICH Estrada [facility] [place] [address] [place] [address] 01/06/2023 13:45:40 01/09/2023 08:43:12 Nicotine dependence 32285419 Z87.891 CT chest 06/23/22 with no nodule or mass - repeat due 06/2023Ambrosio goodman cessation counseling and techniques reviewed at length. L iterature reviewed.A void triggers, support groups.Dis traction techniques Greater than 3 but less than 10 minutes spent discussing cessation. Declines NRT.Discus sed Rx options if needed in the future. Asthma-chr onic obstructive pulmonary disease overlap syndrome 5623625033 3409902 J44.9 Overlap syndromePF T completed 08/2021, in [...] g cessation Obstructiv e sleep apnea syndrome 11749963 G47.33 Positive home study 04/08/21 with AHI 10.3Machin e set up 07/23/21Do wnload today with 67% use greater than 4 hours.AHI is 0.4 on CPAP 8 cm H2OShe has good use and benefit.Do wnload in 3-6 months, PRN for concerns [id number] ERICH Estrada [facility] [place] [address] [place] [address] 07/10/2023 11:40:35 07/10/2023 15:08:31 Asthma-chronic obstructive pulmonary disease overlap syndrome 1780517023 6434619 J44.9 Overlap syndromePF T completed 08/2021, in [...] g cessation Obstructiv e sleep apnea syndrome 27431029 G47.33 Positive home study 04/08/21 with AHI 10.3Machin e set up 07/23/21La st download with 67% use greater than 4 hours.AHI is 0.4 on CPAP 8 cm H2OShe has good use and benefit. Nicotine dependence [address] chest 06/23/22 with no nodule or massSmokin g cessation counseling and techniques reviewed at length. L iterature reviewed.A void triggers, support groups.Dis traction techniques [...] Recorded Advance Directives Directive None Recorded Payers Insurance Date Sequence Insurance Name Policy Number Policy Fletcher Covered Member ID Fletcher Member ID Guarantor Name 01/05/2024 1 [facility] - DOS ON OR AFTER 21 (MEDICAID REPLACEMENT - HMO) Noelle Fields [id number] Noelle Fields Notes Date Note Type Note Provider Name and Address Organization Details Recorded Time 3 text/html Ms Fields presents today to follow up on asthma, dyspnea, cough, history of SARS-CoV-2, GERDHuma has not had any breathing concerns or [...] wakes.Compliant with Symbicort and SpirivaWheezing is intermittent ERICH Estrada [address] [facility], [facility] [address], [place], [address], [employer] 01/06/2023 15:46:16 3 text/html Ms Fields presents today to follow up on asthma, dyspnea, cough, history of SARS-CoV-2, GERDHuma has not had any breathing concerns or respiratory infections in the last 9 months.COntinues to have dogs in the house, reports that one sits with her all the timeShe is not on an allergy pill daily.Admits [...] Symbicort and SpirivaThese remain affordableWheezing is intermittent ERICH Estrada [address] [facility], [place], [address], [employer] 07/10/2023 22:01:59 OBGyn Episode No OBEpisode recorded.
--- OUTSIDE RECORDS SUMMARY | 2025-07-12 09:00 | XMS_ITS | Clinical Summary ---
Author Organization [facility] Address [address] [place] [address] Phone Care Team Providers Care Natural Developer Name Role Phone Shyam Costa MD Primary Care Provider [phone] Social History Tobacco Use Types Packs/Day Years [...] (1 of 2) 2010 Influenza Immunization (#1) 2025 SARS-COV-2 Immunization ( - season) 2025 Colonoscopy 05/23/2029 05/23/2019 Colorectal Cancer Screening [...] Insurance MEDICAID [employer] Care Teams Natural Developer Relationship Specialty Start Date End Date Shyam Costa MD [address] [place] [address] PCP - General Pulmonary Disease 08/04/19
== END 2025-07-12 08:57 | disposition home or self-care (01) ==
LOC: CHSIMG 08:58
PROVIDERS: PCP Nurse Practitioner Family; Visit Provider Nurse Practitioner Family
DX: E27.9 Disorder of adrenal gland, unspecified (principal); N13.30 Unspecified hydronephrosis
CPT/HCPCS: 74183; A9577

== ENCOUNTER 2025-08-05 12:52 | Outpatient (CLI) | payer OTHER, SELFPAY ==
--- NOTE | ~2025-08-05 | US_ITS ---
Examination: Ultrasound of the retroperitoneum including kidneys and bladder. 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 Comparison: Abdominal MRI 07/12/2025 Findings: Right kidney: 12 cm. Normal echogenicity. No collecting system dilatation. No shadowing calculi. Left kidney: 13 cm. Normal echogenicity. No collecting system dilatation. No shadowing calculi. Urinary bladder: Not seen. IMPRESSION: 1. No acute findings. 2. No renal cysts identified on ultrasound. Reviewed, dictated and finalized at location R.
[2025-08-05 14:39] LABS: Albumin Level 4.1 g/dL (3.5-5.1); Anion Gap 6 mmol/L (4-12); Blood Urea Nitrogen 16 mg/dL (7-17); Calcium 9.7 mg/dL (8.4-10.2); Carbon Dioxide 32 mmol/L (22-30); Chloride 108 mmol/L (98-107); Estimated Glomerular Filt Rate > 60; Glucose 78 mg/dL (65-110); Osmolality Calculated 302 mOsm/kg (285-295); Potassium 4.2 mmol/L (3.4-5.0); Sodium 146 mmol/L (137-145)
--- OUTSIDE RECORDS SUMMARY | 2025-08-05 14:39 | XMS_ITS | Clinical Summary ---
Author Organization [facility] [place] [address] Address [address] [place] [address] Care Team Providers Care Traffic Operator Name Role Phone Paulette Obrien NP Primary Care Provider [phone] Allergies Active Allergy Reactions Criticality Noted Date Comments Hydrochlorothiazide Swelling,Other (See comments) Medium 05/14/2019 Severe indigestion Sulfa Unknown 07/31/2025 Medications rivaroxaban (XARELTO) 10 mg tablet Take 10 mg by mouth daily 9 Active Symbicort 160-4.5 mcg/actuation inhaler INHALE 2 PUFFS BY MOUTH TWICE DAILY DIRECTED 1 Active cyclobenzaprine (FLEXERIL) 10 mg tablet Take 1 tablet by mouth 2 (two) times a day as needed 9 Active loratadine (CLARITIN) 10 mg tablet Take 10 mg by mouth daily 1 Active traMADoL (ULTRAM) 50 mg tablet Take 50 mg by mouth every 6 (six) hours as needed Active tiotropium bromide (SPIRIVA RESPIMAT) 2.5 mcg/actuation inhaler Inhale 5 mcg daily Active varenicline (CHANTIX) 1 mg tablet TAKE 1 TABLET BY MOUTH TWICE DAILY (TAKE WITH A FULL GLASS OF WATER) 60 tablet 2 Active Additional Information Patient not taking.Reported on 07/31/2025 metFORMIN XR (GLUCOPHAGE XR) 500 mg 24 hr tablet Take 1 tablet (500 mg total) by mouth 5 Active losartan (COZAAR) 50 mg tablet Take 1 tablet (50 mg total) by mouth daily Active benzonatate (TESSALON) 200 mg capsule TAKE 1 CAPSULE BY MOUTH THREE TIMES DAILY NEEDED FOR COUGH Active hydroCHLOROthia zide 12.5 mg tablet Take 1 tablet/capsule (12.5 mg total) by mouth daily Active fluticasone-ume clidin-vilanter (Trelegy Ellipta) 100-62.5-25 mcg inhaler Inhale 1 puff daily 60 each Active albuterol HFA (PROVENTIL HFA,VENTOLIN HFA,PROAIR HFA) 90 mcg/actuation inhaler Inhale 2 puffs every 6 (six) hours as needed for wheezing 1 each Active albuterol 2.5 mg /3 mL (0.083 %) nebulizer solution Take 3 mL (2.5 mg total) by nebulization every 6 (six) hours as needed for shortness of breath or wheezing 75 mL 5 Active Active Problems Problem Noted Date Diagnosed Date Chronic hypoxic respiratory failure 07/31/2025 Centrilobular emphysema 06/19/2025 Personal history of nicotine dependence 06/19/20 Encounters Date Type Department Care Team Description 07/31/2025 1:30 PM CDT Office Visit [facility] Pulmonary at [address] [place] [phone] Anjel Rodgers DO Centrilobular emphysema (Primary Dx); Personal history of nicotine dependence; Chronic hypoxic respiratory failure (HCC) 07/31/2025 Telephone [facility] Pulmonary at [address] [place] [phone] Lesly Miranda LPN Pulmonary Rehab/POC/nebulizer 07/16/2025 2:39 PM CDT - 07/16/2025 11:59 PM CDT Hospital Encounter [facility] [address] [place] [address] Personal history of nicotine dependence Discharge Disposition: Discharge to home or self care 07/16/2025 2:38 PM CDT - 07/16/2025 11:59 PM CDT Hospital Encounter [facility] [address] [place] [address] Centrilobular emphysema Discharge Disposition: Discharge to home or self care 06/20/2025 Results Follow-Up [facility] Pulmonary at [address] [place] [address] Anjel Rodgers DO CBC with auto differential, Differential, auto, CT Lung Cancer Screening 06/17/2025 1:55 PM CDT Lab [address] Centrilobular emphysema (HCC) 06/17/2025 1:00 PM CDT Office Visit [facility] Pulmonary at [address] [place] [address] Anjel Rodgers DO Centrilobular emphysema (HCC) (Primary [...] Frequency of Alcohol Consumption Not on file 07/31/2025 Q2: How many drinks containi ng alcohol do you have on a typical day when you are drinking? 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 Gender Identity Not on file Sexual Orientation Not on file Obstetrics History Last Filed Vital Signs Vital Sign Reading Time Taken Comments Blood Pressure 112/60 07/31/2025 1:30 PM CDT Pulse 80 07/31/2025 1:30 PM CDT Temperature 36.7 C (98 F) 07/31/2025 1:30 PM CDT Respiratory Rate 18 07/31/2025 1:30 PM CDT Oxygen Saturation 97% 07/31/2025 1:3 0 PM CDT 2 liters of oxygen Inhaled Oxygen Concentration - - Weight 95.3 kg (210 lb) 07/31/2025 1:30 PM CDT per patient weight at home Height 170.2 cm (5' 7) 07/31/2025 1:30 PM CDT Body Mass Index 32.89 07/31/2025 1:30 PM CDT Plan of Treatment Health Maintenance Due Date Last Done Comments Colon Cancer Screening-Colonoscopy 1960 Depression Screening 1960 Hepatitis C Screening 1960 Hepatitis B Screening 1978 Regular Well Visit/Exam 18-64 1978 Pneumococcal vaccine <65 (1 of 2 - PCV) 12/21/1979 Zoster Vaccine (1 of 2) 2010 Breast Cancer Screening-Mammogram 07/23/2021 07/23/2020, 07/23/2020, 05/14/2019 Influenza Vaccine (#1) 2025 07/30/2024 Lung Cancer Screening 07/17/2026 07/16/2025 DTaP/Tdap/Td Vaccine (3 - Td or Tdap) 07/26/2034, 05/23/2022 Procedures Procedure Name Priority Date/Time Associated Diagnosis Comments CT LUNG CANCER SCREENING Schedule Routine, Read Routine (OP Routine) 07/16/2025 4:07 PM CDT Personal history of nicotine dependence PULMONARY FUNCTION TEST (PFT) Routine 07/16/2025 3:17 PM CDT Centrilobular emphysema DIFFERENTIAL AUTO Routine 06/17/2025 1:5 4 PM CDT Centrilobular emphysema (HCC) CBC WITH AUTO DIFFERENTIAL Routine 06/17/2025 1:54 PM CDT Centrilobular emphysema (HCC) from Last 3 Months Results * CT Lung Cancer Screening (07/16/2025 4:07 PM CDT) Anatomical Region Laterality Modality Chest N/A Computed Tomogra phy 07/17/2025 3:16 PM CDT Narrative 07/17/2025 3:19 PM CDT EXAM DESCRIPTION: CT LUNG CANCER SCREENING REASON FOR STUDY: Screening CT of the chest in a current smoker with a 90.5 pack year smoking history. Additional history: None. TECHNIQUE: Low dose CT scan of the chest was performed without intravenous contrast using helical scanning technique. The exam extends from the lung apices through the lung bases. Automatic exposure control was used as a dose optimization technique. NOTE: This study was performed for the specific purposes of lung cancer screening and is not an alternative to diagnostic chest CT. RADIATION DOSE: CT dose index volume (CTDIvol) = 1.92 mGy COMPARISON: None. FINDINGS: SMOKING RELATED LUNG DISEASE: There are mild emphysematous changes of lungs with scattered subsegmental atelectasis and scarring. There is no definite evidence of a pneumothorax. The central airways are grossly patent. There is scattered mild bronchial wall thickening, which is likely related to mild chronic bronchitis/bronchiolitis. There is no definite evidence of a focal consolidation or pleural effusion. LUNG NODULES: There is no definite evidence of a suspicious pulmonary nodule. CORONARY ARTERY CALCIFICATION: Present. OTHER: The heart size is normal. There is no definite evidence of pericardial effusion. There are mild atherosclerotic changes of the coronary vessels. There are atherosclerotic changes of the thoracic aorta. There is no definite unenhanced CT evidence of mediastinal, hilar, or axillary lymphadenopathy. There are scattered prominent subcentimeter mediastinal lymph nodes noted with largest measuring 0.8 cm in the subcarinal region (axial image 127). There is a small hiatal hernia. There is mild osteopenia with degenerative changes of the spine. IMPRESSION: 1. No definite evidence of a suspicious pulmonary nodule. 2. Mild emphysematous changes of lungs with scattered subsegmental atelectasis and scarring. 3. Scattered mild bronchial wall thickening, which is likely related to mild chronic bronchitis/bronchiolitis. Lung-RADS category 1: Negative. Recommendation: Low dose Screening CT of chest in 12 months. THIS IS AN ELECTRONICALLY VERIFIED FINAL REPORT 07/17/2025 3:19 PM - Electronically signed by Gordon Cosme D.O. PS: PS Report ID: [id number] Reading Location: [place] [address] Procedure Note Gordon Cosme, - 07/17/2025 EXAM DESCRIPTION: CT LUNG CANCER SCREENING REASON FOR STUDY: Screening CT of the chest in a current smoker with a 90.5 pack year smoking history. Additional history: None. TECHNIQUE: Low dose CT scan of the chest was performed without intravenous contrast using helical scanning technique. The exam extends from the lung apices through the lung bases. Automatic exposure control was used as adose optimization technique. NOTE: This study was performed for the specific purposes of lung cancer screening and is not an alternative to diagnostic chest CT. RADIATION DOSE: CT dose index volume (CTDIvol) = 1.92 mGy COMPARISON: None. FINDINGS: SMOKING RELATED LUNG DISEASE: There are mild emphysematous changes oflungs with scattered subsegmental atelectasis and scarring. There is nodefinite evidence of a pneumothorax. The central airways are grossly patent.There is scattered mild bronchial wall thickening, which is likely related to mild chronic bronchitis/bronchiolitis. There is no definite evidence of afocal consolidation or pleural effusion. LUNG NODULES: There is no definite evidence of a suspicious pulmonary nodule. CORONARY ARTERY CALCIFICATION: Present. OTHER: The heart size is normal. There is no definite evidence of pericardial effusion. There are mild atherosclerotic changes of thecoronary vessels. There are atherosclerotic changes of the thoracic aorta. There is no definite unenhanced CT evidence of mediastinal, hilar, oraxillary lymphadenopathy. There are scattered prominent subcentimeter mediastinal lymph nodes noted with largest measuring 0.8 cm in the subcarinal region (axial image 127). There is a small hiatal hernia. There is mild osteopenia with degenerative changes of the spine. IMPRESSION: 1. No definite evidence of a suspicious pulmonary nodule. 2. Mild emphysematous changes of lungs with scattered subsegmental atelectasis and scarring. 3. Scattered mild bronchial wall thickening, which is likely related tomild chronic bronchitis/bronchiolitis. Lung-RADS category 1: Negative. Recommendation: Low dose Screening CT of chest in 12 months. THIS IS AN ELECTRONICALLY VERIFIED FINAL REPORT 07/17/2025 3:19 PM - Electronically signed by Gordon Cosme D.O. PS: PS Report ID: [id number] Reading Location: [place] [address] Anjel Marshal Rodgers DO IMG CT PROCEDURES Final R esult * Pulmonary Function Test - (07/16/2025 3:17 PM CDT) Anatomical Region Laterality Modality PFT 07/16/2025 2:48 PM CDT Narrative 07/21/2025 9:18 PM CDT PFT INTERPRETATION Please see technologist's comments mentioned in attached results report. Spirometry: Severe obstruction There is no significant response to bronchodilator administration. This does not preclude the use of bronchodilator therapy if clinically indicated. Flow volume loop: Obstructive pattern Lung volumes: No restriction with normal TLC. Mild air trapping DLCO: Moderate diffusion impairment Electronically signed by Desiree Patten MD Anjel Rodgers DO PFT ORDERABLES Final Res ult * (ABNORMAL) Differential, auto (06/17/2025 1:54 PM [...] 1:54 PM CDT 06/17/2025 4:35 PM CDT us Anjel Rodgers DO LAB BLOOD ORDERABLES Анна l Result [facility] ([place] [place] [address] * (ABNORMAL) CBC with auto differential (06/17/2025 [...] ([place]) MCHC 31.3(L) 32.3 - 35.7 g/dL [facility] RDW CV 14.3 11.1 - 14.9 % [facility] RDW SD 49.3(H) 35.7 - 48.1 fL [facility] ([place] NRBC abs 0.00 0.00 - 0.01 K/cumm [facility] ([place]) Blood 06/17/2025 1:54 PM CDT 06/17/2025 4:35 PM CDT Anjel Rodgers DO LAB BLOOD ORDERABLES Анна keenan Result [facility] ([place] [place] [address] from Last 3 Months Insurance [facility] Care Teams Traffic Operator Relationship Specialty Start Date End Date Paulette Obrien NP [address] [place] [address] PCP - General Nurse Practitioner 07/31/25
--- OUTSIDE RECORDS SUMMARY | 2025-08-05 14:39 | XMS_ITS | Encounter Summary ---
Author Organization [facility] Address [address] [place] [address] Care Team Providers Care Jet Inspector Name Role Phone Lesly Martin Primary Care Provider [phone] Dom Serrato MD Unavailable Encounter Details Date Type Department Care Team (Late st Contact Info) Description 03/16/2019 Abstract [facility] [address] [place] [address] , Generic Conversion, Social History Tobacco Use Types Packs/Day Years Used Date Smoking Tobacco: Never Assessed Comments Unknown Sex and Gender Information Value Date Recorded Sex Assigned at Female 05/17/2019 10:01 AM CDT Legal Sex Female 5:45 PM PAPER INSPECTOR Gender Identity Female 05/17/2019 10:01 AM CDT Sexual Orientation Not on file documented as of this encounter Plan of Treatment Not on file documented as of this encounter Visit Diagnoses Not on filedocumented in this encounter Additional Health Concerns Infection Onset Date Last Indicated Resolved Time COVID-19 Rule Out 10/06/2021 10/06/2021 10/06/2021 1:51 PM PAPER INSPECTOR COVID-19 Confirmed 10/06/2021 10/06/2021 12:32 AM PAPER INSPECTOR COVID-19 Rule Out 10/06/2022 10/06/2022 10/06/2022 8:03 PM PAPER INSPECTOR documented as of this encounter Care Teams Jet Inspector Relationship Specialty Start Date End Date Lesly Martin PA [address] [place] [address] PCP - General PHYSICIAN TANK HOUSE SUPERVISOR 05/10/19 Dom Serrato MD [address] [place] [address] Vascular/Christmas Tree Grower INTERNAL MEDICINE 05/13/19 documented as of this encounter
--- OUTSIDE RECORDS SUMMARY | 2025-08-05 14:39 | XMS_ITS | Encounter Summary ---
Author Organization [facility] Address [facility] [place] [address] Care Team Providers Care Clerical Manager Name Role Phone Lesly Martin Primary Care Provider [phone] Dom Serrato MD Unavailable Encounter Details Date Type Department Care Team (Late st Contact Info) Description 05/14/2019 Abstract [facility] [address] [place] [address] Dom Serrato MD [address] [facility], [address] [place] [address] Social History Tobacco Use Types Packs/Day Years [...] AM CDT Legal Sex Female 5:45 PM STUNT WOMAN Gender Identity Female 05/17/2019 10:01 AM CDT [...] Rule Out 10/06/2021 10/06/2021 10/06/2021 1:51 PM STUNT WOMAN COVID-19 Confirmed 10/06/2021 10/06/2021 12:32 AM STUNT WOMAN COVID-19 Rule Out 10/06/2022 10/06/2022 10/06/2022 8:03 PM STUNT WOMAN documented as of this encounter Care Teams Clerical Manager Relationship Specialty Start Date End Date Lesly Martin PA [address] [address] PCP - General PHYSICIAN FRONT END UI DEVELOPER 05/10/19 Dom Serrato MD [address] [place] [address] Vascular/Chainstitch Elastic Attacher INTERNAL MEDICINE 05/13/19 documented as of this encounter
--- OUTSIDE RECORDS SUMMARY | 2025-08-05 14:39 | XMS_ITS | Clinical Summary ---
Author Organization [facility] Address [facility] [place] [address] Care Team Providers Care Boiler Inspector Name Role Phone Lesly Martin Primary Care Provider Dom Serrato MD Unavailable Allergies Active Allergy [...] pain 10/08/2022 Left nephrolithiasis 10/07/2022 COPD exacerbation 10/06/2022 Encounter for screening colonoscopy 05/22/2019 Overview (05/22/2019): Added automatically from request for surgery [id number] Body mass index 40.0-44.9, adult 05/17/2019 Toe cyanosis 05/14/2019 Bilateral lower extremity edema 05/14/2019 DVT of deep femoral vein, left 05/14/2019 Mixed hyperlipidemia 05/14/2019 Current smoker 05/14/2019 Secondary hypertension 05/14/2019 Low back pain 05/14/2019 Chronic venous insufficiency 05/14/2019 History of DVT (deep vein thrombosis) 05/14/2019 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 No 10/07/2022 Comments No Sex and Gender Information Value Date Recorded Sex Assigned at Female 05/17/2019 10:01 AM CDT Legal Sex Female 5:45 PM PRESSURISED CONTAINER FILLER Gender Identity Female 05/17/2019 10:01 AM CDT Sexual Orientation Not on file Occupation Industry Job Start Date Job End Date Not on file Not on file Not on file Not on file Last Filed Vital Signs Vital Sign Reading Time Taken Comments Blood Pressure 130/61 10/08/2022 4:55 AM PRESSURISED CONTAINER FILLER Pulse 84 10/08/2022 4:55 AM PRESSURISED CONTAINER FILLER Temperature 35.8 C (96.4 F) 10/08/2022 4:55 AM PRESSURISED CONTAINER FILLER Respiratory Rate 18 10/08/2022 4:55 AM PRESSURISED CONTAINER FILLER Oxygen Saturation 93% 10/08/2022 11:14 AM PRESSURISED CONTAINER FILLER Inhaled Oxygen Concentration - - Weight 99.1 kg (218 lb 6.4 oz) 10/06/2022 10:36 PM PRESSURISED CONTAINER FILLER Height 167.6 cm (5' 6) 10/06/2022 4:23 PM PRESSURISED CONTAINER FILLER Body Mass Index 35.25 10/06/2022 4:23 PM PRESSURISED CONTAINER FILLER Plan of Treatment Health Maintenance Due Date Last Done Comments Annual Physical 12/21/1963 Hepatitis C 1978 Pneumococcal Vaccine: 50+ Years (1 of 2 - PCV) 12/21/1979 Zoster Vaccines (1 of 2) 2010 RSV Immunization or 60+ Years (1 - Risk 60-74 years 1-dose series) 2020 Mammogram Screening 07/23/2022 07/23/2020, 05/14/2019 COVID-19 Vaccine ( - 2024-2 6 season) 2025 Influenza Adult (#1) 2025 Colorectal Cancer Screening Colonoscopy (10 Years) 05/23/2029 05/23/2019 DTaP, Tdap and Td Vaccines ( 2 - Td or Tdap) 05/23/2032 05/23/2022 Hepatitis A Vaccines Aged Out No long er eligible based on patient's age to complete this topic Meningococcal B Vaccine Aged Out No l [...] Most Recently Relevant to Health Maintenance Insurance [facility] Advance Directives * Full Code (Latest Code Status on File) Date Activated Date Inactivated Comments 10/06/2022 11:37 PM 10/08/2022 2:01 PM Care Teams Boiler Inspector Relationship Specialty Start Date End Date Lesly Martin PA [address] [address] PCP - General PHYSICIAN SUPERVISOR DIMENSION WAREHOUSE 05/10/19 Dom Serrato MD [address] [address] Vascular/Grants Assistant INTERNAL MEDICINE 05/13/19
--- OUTSIDE RECORDS SUMMARY | 2025-08-05 14:39 | XMS_ITS | Clinical Summary ---
Author Organization [facility] Address [address] [place] [address] Phone Care Team Providers Care Reception Clerk Name Role Phone Shyam Costa MD Primary Care Provider [phone] Social History Tobacco Use Types Packs/Day Years [...] Insurance MEDICA[employer] Care Teams Reception Clerk Relationship Specialty Start Date End Date Shyam Costa MD [address] [place] [address] PCP - General Pulmonary Disease 08/04/19
--- OUTSIDE RECORDS SUMMARY | 2025-08-05 14:39 | XMS_ITS | Data Portability ---
Author Organization [facility] [place] Address [address] [place] [address] [place] [address] Care Team Providers Care Estimator Printing Plate Making Name Role Phone ISAIAS SMITH Referring Provider [phone] Assessment No assessment recorded. Plan of Treatment Reminders Order Date Submit Date Provider Last Modified By Organization Details Last Modified Time Details Appointments None recorded. Lab urinalysis, dipstick 2022 023 [place], [address], [place], [address], 11:45:47 Referral urogynecolo gist referral 2022 023 [email or web address] Cheikh Navarro MD, [address] [facility] [address], [place], [address], 12:06:56 Procedures None recorded. Surgeries None recorded. Imaging None recorded. Medication Orders None recorded. Patient TargetsNo targets recorded. Patient InstructionsNo instructions recorded. Reason for Referral Urogynecologist Referral for Mixed urinary incontinence Referring Physician: Ingrid Masters, [place], Encounter Date: 02/16/2023 Results Created Date Observation Date Name Description Value Unit Range Abnormal Flag Note LastModifiedBy Organization Detail LastModifiedTime 02/17/2002/16/2023 urina lysis , dipst ick pH 5 Not Available [place] [address], [place], [address], 02/16/2023 11:45:02 02/17/20 23 02/16/2023 urina lysis , dipst ick Specific [place] 1.000 Not Available [facility] [address], [place], [address], 02/16/2023 11:45:02 02/17/20 23 02/16/2023 urina lysis , dipst ick Appearance clear Not Available [facility] [address], [place], [address], 02/16/2023 11:45:02 02/17/20 23 02/16/2023 urina lysis , dipst ick Color yellow Not Available [place] [address], [place], [address], 02/16/2023 11:45:02 Result Notes None recorded. Procedures Surgical History Date Name Laterality Status Provider Name and Address Organization Details Recorded Time 023 Date of Last Mammogram completed Ernestina Park [facility] 02/16/2023 11:28:14 020 Date of Last Colonoscopy completed Ingrid Masters [facility] [address], [place], [address], [facility] 02/16/2023 11:55:32 990 Total Hysterectomy completed Ingrid Masters [facility] [address], [place], [address], [facility] 02/16/2023 11:56:09 990 cholecystectomy completed [facility] 02/16/2023 11:33:26 990 Ectopic completed Ernestina Park [facility] 02/16/2023 11:33:45 Other completed Ingrid Masters [facility]- [address], [place], [address], [facility] 02/16/2023 11:56:37 Imaging Results None [...] Body mass index (BMI) Body weight Systolic And Diastolic Provider Name and Address Organization Details Last Updated DateTime 02/16/2023 170.18 cm 32 kg/m2 42403.84 g 125/83 mm[Hg] Ernestina Park [facility] 02/16/2023 11:25:20 Social History Question Answer Notes LastModified by [employer] Details LastModified Time Tobacco Smoking Status Current Every Day Smoker Ernestina Park [facility], [facility] 02/16/2023 11:31:41 In The 14 Days [...] Functional Status Question Answer Note LastModified by [employer] Details LastModified Time Do you use any illicit or recreational drugs? No Information not available 02/16/2023 What is your level of alcohol consumption? Occasional Information not available 02/16/2023 Mental Status None recorded. Family History Relationship Description Onset Age of this Age Resolved Age Notes LastModified by Organization Details LastModified Time Mother Anemia Not available 11:29:49 Mother Malignant neoplasm of colon Not available 2022 11:30:27 Mother Malignant neoplasm of lung Not available 2022 11:30:55 Paternal Aunt Malignant neoplasm of breast Not available 2022 11:30:08 Brother Diabetes mellitus Not available 2022 11:30:38 Father Hypercholest erolemia Not available 2022 11:30:47 Father Neoplasm of urinary bladder Not available 2022 11:31:16 Medical History Condition Response Allergies (Food, seasonal, environmental ) N Other Y Breast Cancer N Drug/Latex Allergies/Reactions N Blood Transfusion N Lung Disease N Dermatologic Disorders N Defects or Inherited Disease N Breast [...] ICD10 Code Diagnosis IMO Codes Diagnosis Note [id number] [facility] [address] [address] 02/16/2023 10:44:44 02/16/2023 12:06:56 Mixed urinary incontinence 072592463 N39.46 Today we discussed recommenda tion for urogynecol ogist for assistance with evaluation of mixed incontinen ce.Exam was deferred today due to functional mobility issues.We were able to get a urine which was neg for infection. She is agreeable & appreciati ve of this assistance in her care.[place]aco h hx reviewed & updated as reported.S [...] Fletcher Member ID Guarantor Name 02/16/2023 1 [facility] ON OR AFTER 04/08/21 (MEDICAID REPLACEMENT - HMO) Noelle Fields [id number] Noelle Fields Notes Date Note Type Note Provider Name and Address Organization Details Recorded Time 02/16/2023 text/html Patient is a 62yo white post-surgical menopause from 1989.She is referred [...] pt. Ingrid Masters, [place]- [address], [place], [address], [facility] 02/16/2023 12:04:01 OBGyn Episode Ob Episode Information Episode Created Date Number of Fetuses Patient Bloodtype Patient rh Status Prepregnancy Weight lbs Domestic Partner Domestic Partner Phone Father Name Picker Operator Status 02/17/20 23 1 CLOSED Fetus Data [...] Domestic Partner Domestic Partner Phone Father Name Picker Operator Status 02/17/20 23 1 CLOSED Fetus Data [...]
--- OUTSIDE RECORDS SUMMARY | 2025-08-05 14:39 | XMS_ITS | Encounter Summary ---
Author Organization [facility] Address [address] [place] [address] Care Team Providers Care Regulatory Internship Name Role Phone Unknown, Stephanie Primary Care Provider Unavail able Paulette Obrien VIDEO GAME TESTER Primary Care Provider [phone] Encounter Details Date Type Department Care Team (Late st Contact Info) Description 06/20/2025 Results Follow-Up [facility] Pulmonary at [address] [place] [address] Anjel Rodgers [address] [place] [address] CBC with auto differential, Differential, auto, CT Lung Cancer Screening Social History Tobacco Use Types Packs/Day Years [...] on file Legal Sex Female 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
[2025-08-05 14:41] LABS: Total Protein Urine Random 69 mg/dL; Ur Ttl Prot Creatinine Ratio 0.70 mg/mg (0-0.20)
[2025-08-06 14:09] LABS: Albumin 3.5 g/dL (2.9-4.4); Alpha-1-Globulin 0.3 g/dL (0.0-0.4); Alpha-2-Globulin 0.7 g/dL (0.4-1.0); Gamma Globulin 0.8 g/dL (0.4-1.8)
[2025-08-06 16:08] LABS: ANA by IFA Rfx Titer/Pattern Negative (.)
[2025-08-07 14:08] LABS: Albumin, U 23.3 % (.); Alpha-1-Globulin, U 2.8 % (.); Alpha-2-Globulin, U 55.2 % (.); Beta Globulin, U 13.8 % (.); Gamma Globulin, U 4.9 % (.)
[2025-08-08 18:08] LABS: Anti-GBM Antibodies <0.2 units (0.0-0.9)
== END 2025-08-05 12:53 | disposition home or self-care (01) ==
LOC: CHSIMG 12:54
PROVIDERS: PCP Nurse Practitioner Family; Visit Provider Internal Medicine Nephrology
DX: Q61.02 Congenital multiple renal cysts (principal); R31.9 Hematuria, unspecified; I10 Essential (primary) hypertension; E11.9 Type 2 diabetes mellitus without complications
CPT/HCPCS: 36415; 76770; 80069; 82570; 84155; 84156; 84165; 84166; 86037; 86038; 86160; 86225; 86364

== ENCOUNTER 2025-08-26 12:23 | Outpatient (CLI) | payer OTHER, SELFPAY ==
--- NOTE | ~2025-08-26 | MM_ITS ---
EXAMINATION: MM screening [facility] BI w vasquez HISTORY: Screening TECHNIQUE: Craniocaudal and mediolateral oblique 3-D tomosynthesis images were obtained and synthetic 2-D images were generated. CAD analysis was submitted and interpreted. COMPARISON: Comparison to multiple prior studies sequentially, with oldest reviewed study dated 10/28/2022. BREAST PARENCHYMAL COMPOSITION: Not dense: There are scattered areas of fibroglandular density. FINDINGS: There is no evidence of suspicious mass, calcification, or architectural distortion to suggest malignancy in either breast. There has been no suspicious interval change. IMPRESSION: 1. No mammographic evidence of malignancy. 2. Recommend routine screening mammography in one year. BI-RADS Category 1: Negative Reviewed, dictated and finalized at location O. GER PET
== END 2025-08-26 12:24 | disposition home or self-care (01) ==
PROVIDERS: PCP Nurse Practitioner Family; Visit Provider Nurse Practitioner Family
DX: Z12.31 Encounter for screening mammogram for malignant neoplasm of breast (principal)
CPT/HCPCS: 77063; 77067

== ENCOUNTER 2025-09-17 08:58 | Outpatient (CLI) | payer OTHER, SELFPAY ==
--- NOTE | ~2025-09-17 | US_ITS ---
EXAMINATION: US soft tissue LE DATE: 09/17/2025 09:31 INDICATION: Painful palpable lump with swelling at the lateral left thigh TECHNIQUE: Multiple grayscale and Doppler ultrasound images of the region of concern at the left lateral thigh were obtained. COMPARISON: None FINDINGS/IMPRESSION: Normal appearance to the subcutaneous fat and visualized underlying musculature at the region of concern. No abnormal masses or fluid collections identified. Reviewed, dictated and finalized at location A. ERTY ACCOUNTANT
--- NOTE | ~2025-09-17 | US_ITS ---
EXAMINATION: US soft tissue head and neck, 09/17/2025 9:03 SEARCH ENGINE OPTIMIZATION ANALYST HISTORY: eval left jawline mass parotid mass cyst vs subq Comparison: None Technique: Cole-scale and color Doppler images were obtained. Findings: Correlating with the palpable area within the subcutaneous tissues there is a complex cystic focus measuring 1 x 1 x 0.7 cm with no increased flow, there is a questionable tract identified. IMPRESSION: Nonspecific complex subcutaneous lesions detailed above incompletely evaluated. Contrast-enhanced MRI is recommended Reviewed, dictated and finalized at location P. CH ENGINE OPTIMIZATION ANALYST IMPRESSION: Nonspecific complex subcutaneous lesions detailed above incompletel y evaluated. Contrast-enhanced MRI is recommended
== END 2025-09-17 08:59 | disposition home or self-care (01) ==
PROVIDERS: PCP Nurse Practitioner Family; Visit Provider Plastic Surgery
DX: R22.0 Localized swelling, mass and lump, head (principal); M79.89 Other specified soft tissue disorders
CPT/HCPCS: 76536; 76882